=== PATIENT | female | born 1970 | race Caucasian/White ===

== ENCOUNTER 2016-06-23 11:35 | Observation (INO) ==
--- NOTE | 2016-06-23 11:50 | Emergency Department Note ---
Disposition Clinical Impression: Confusion, Abnormal chest x-ray, Marijuana abuse, Acute anxiety, Altered mental state, COPD (chronic obstructive pulmonary disease) Disposition: Admitted As Inpatient General Adult HPI - General Chief complaint: ED Psychiatric Symptoms Stated complaint: OD/ Aggitated Time Seen by Provider: 06/23/16 11:49 Source: EMS Limitations: no limitations - History of Present Illness HPI Narrative: 45-year-old female reports to the emergency department, there is concern for drug overdose. Per the patient's mother she has been confused and "takes drugs ". The patient reportedly has been somewhat anxious about a court date coming next Friday. There is no history of significant trauma, the patient may have fell out of bed. There is no history of direct blunt head injury. There is no history of laceration or bleeding. The patient is unable to give a clear history. The patient's mother reports the patient had taken some drugs of an unknown sort last night, we are not sure if it was an intentional overdose or suicide attempt. The patient's mother reports the patient has not had suicide attempts in the past. Per reports she has never been admitted to a psychiatric facility for mental problems in the past. She reportedly has a history of anxiety and depression per the chart. There is no history of syncope or seizure. No apnea or on arousability. Confusion and apparent anxiety are reported. The patient is not known to be diabetic. Nurses report patient has soiled herself i.e. urinated and defecated in her pants. There is no history of neck or spinal trauma. There are no reports of diabetes. Onset (ago): hour(s) Pain Scale: 0 - Related Data Home Medications Medication Instructions Recorded Confirmed Aclidinium [place] [Tudorza 1 puff IH BID 04/13/15 08/23/15 Pressair] Albuterol Sulfate [Albuterol 2 puff IH Q4HR PRN 04/13/15 08/23/15 Inhaler] Cetirizine HCl [Zyrtec] 10 mg PO DAILY 04/13/15 08/23/15 Escitalopram [Lexapro] 20 mg PO DAILY 04/13/15 08/23/15 Furosemide [Lasix] 20 mg PO DAILY 04/13/15 08/23/15 Levothyroxine [Synthroid] 88 mcg PO DAILY 04/13/15 08/23/15 Multivitamin [Multi-Day Vitamins] 1 tab PO DAILY 04/13/15 08/23/15 Ranitidine HCl [Zantac] 150 mg PO BID 04/13/15 08/23/15 Budesonide/Formoterol 160/4.5 2 puff IH BIDR 08/23/15 08/23/15 [Symbicort 160/4.5] Previous Rx's Medication Instructions Recorded Nicotine Patch [Nicoderm] 14 mg TD DAILY patch.td24 08/24/15 Thiamine (B-1) [Vitamin B-1] 100 mg PO DAILY tablet 08/24/15 Vitamin B Complex/Vit C/Vit E 1 each PO DAILY tablet 08/24/15 [Stresstab] Sulfamethoxazole/Trimeth DS 1 each PO BID #7 tablet 08/26/15 [Bactrim DS] Clindamycin [Cleocin] 150 mg PO Q6HR #8 capsule 10/06/15 OxyCODONE Immed Rel [Roxicodone 5 5 - 10 mg PO Q6HR PRN #30 tablet 10/06/15 MG] Allergies Allergy/AdvReac Type Severity Reaction Status Date / Time acetaminophen [From Vicodin] Allergy Vomiting Verified 03/17/16 01:24 Amoxicillin Allergy Rash Verified 03/17/16 01:24 hydrocodone [From Vicodin] Allergy Vomiting Verified 03/17/16 01:24 Limitations: ROS unobtainable due to patients medical condition Past Medical History - Past Medical History Medical history: Reports: arthritis, COPD, GERD, osteoporosis, thyroid disease, syncope, other Surgical history: Reports: cholecystectomy, orthopedic, other, other Psychiatric history: Reports: anxiety, depression, other [employer] history: Reports: bilateral tubal ligation - Social History Smoking Status: Former smoker Smokeless Tobacco Status: No Alcohol use: Reports: rarely Drug use: Reports: IVDU Physical Exam - General Limitations: altered mental status General appearance: alert, anxious, other (Disheveled appearing, moving about the bed, crying occasionally, will not answer questions.) - Head Head exam: atraumatic, normocephalic, normal inspection - Eye Eye exam: Present: normal appearance, PERRL, EOMI. Absent: scleral icterus, conjunctival injection, miosis, mydriasis - ENT ENT exam: normal exam, normal oropharynx, mucous membranes moist, TM's normal bilaterally, normal external ear exam - Neck Neck exam: Present: normal inspection, full ROM, trachea midline. Absent: tenderness - Chest Chest inspection: Present: normal inspection, symmetric chest wall rise. Absent : tenderness - Respiratory Respiratory exam: Present: normal lung sounds bilaterally. Absent: respiratory distress - Cardiovascular Cardiovascular exam: Present: regular rate, normal rhythm, normal heart sounds - Abdominal Exam Abdominal exam: Present: soft, Non-Tender. Absent: tenderness, distention, guarding, rebound, rigidity, trauma, pulsatile mass - Extremities Exam Extremities exam: Present: normal inspection, full ROM, normal capillary refill , other. Absent: tenderness, pedal edema, joint swelling, calf tenderness - Expanded Lower Extremity Exam Neurovascular/Tendon exam: Absent: pulse deficit, motor deficit, sensory deficit , tendon deficit - Back Exam Back exam: Present: normal inspection, full ROM. Absent: tenderness, CVA tenderness (L), vertebral tenderness - Neurological Exam Neurological exam: Present: alert, CN II-XII intact. Absent: motor sensory deficit - Psychiatric Psychiatric exam: Present: agitated, anxious - Skin Skin exam: Present: warm, dry, intact, normal color. Absent: rash, cyanosis, diaphoresis, erythema, pallor, mottled Course Vital Signs Temperature 99.8 F H 06/23/16 11:36 Pulse Rate 70 06/23/16 11:36 Respiratory Rate 18 06/23/16 11:36 Blood Pressure 135/107 06/23/16 11:36 O2 Sat by Pulse Oximetry 96 06/23/16 11:36 Temperature 99.8 F H 06/23/16 11:36 Pulse Rate 60 06/23/16 14:30 Respiratory Rate 16 06/23/16 14:30 Blood Pressure 126/107 06/23/16 14:30 O2 Sat by Pulse Oximetry 98 06/23/16 14:30 Oxygen Delivery Oxygen Delivery Room Air Medical Decision Making - MDM Narrative Medical decision making narrative: The patient was highly avoidant and crying and uncooperative initially. She seemed to be confused. During the ED course, she became much more arousable and began talking to staff, but then stopped interacting. There is no evidence of trauma or acute physical abnormality, her testing is essentially negative apart from marijuana abuse and what could be a very small infiltrate in the lung. Levaquin was given by mouth. We consulted the psychiatric service, they came to evaluate the patient and the patient would not talk with them, they felt in the setting of drug overdose that a medical admission would be the primary pathway with secondary direct psychiatrist evaluation on the floor. The the patient appears to be stable and may have ingested a substance that is not detectable by usual ED toxicology studies. There is no direct history of any type of particular ingestion. The grandmother reports that the patient "takes drugs all the time" she does not specify any particular type. The patient appears to be stable at this time, I consulted with the hospitalist [employer] air carrier operations inspector who has accepted the patient to their care. Pending admission for further medical evaluation and psychiatric consultation. - Lab Data Lab results reviewed: Yes I reviewed the patient's lab results. Result diagrams: 06/23/16 12:25 06/23/16 12:25 Lab Results 06/23/16 06/23/16 06/23/16 Range/Units 12:25 12:25 12:25 WBC 11.0 (4.3-11.1) K/mcL RBC 4.11 (3.82-4.97) M/mcL Hgb 12.4 (11.5-15.4) g/dL Hct 37.6 (35.3-44.9) % MCV 91.5 (83.0-100.0) fL MCH 30.2 (28.0-33.3) pg MCHC 33.0 (31.6-35.5) g/dL RDW 15.8 H (11.5-14.5) % Plt Count 364 (140-400) K/mcL MPV 9.3 L (9.4-12.4) fL Immature Gran % 0.4 (0-4) % Seg Neutrophils % 61.6 % Lymphocytes % 24.0 % Monocytes % 11.9 % Eosinophils % 1.4 % Basophils % 0.7 % Neutrophils # 6.8 (1.6-8.9) K/mcL Lymphocytes # 2.6 (0.6-4.6) K/mcL Monocytes # 1.3 (0.0-1.3) K/mcL Eosinophils # 0.2 (0.0-0.6) K/mcL Basophils # 0.1 (0.0-0.2) K/mcL Sodium 145 (136-145) mEq/L Potassium 3.6 (3.5-4.5) mEq/L Chloride 112 H (98-109) mEq/L Carbon Dioxide 21 (19-29) mEq/L BUN 9 (7-20) mg/dL Creatinine 0.69 (0.57-1.11) mg/dL Est GFR ( Amer) > 60 (> 60) Est GFR (Non-Af Amer) > 60 (> 60) BUN/Creatinine Ratio 13 (6-26) Glucose 98 (70-99) mg/dL Calculated Osmolality 299 (280-300) Lactic Acid (0.5-2.2) mmol/L Calcium 8.4 L (8.6-10.8) mg/dL Total Bilirubin (0.2-1.2) mg/dL Direct Bilirubin (0.0-0.5) mg/dL Indirect Bilirubin (0.0-1.2) mg/dL AST (5-34) Units/L ALT (0-55) Units/L Alkaline Phosphatase (38-126) Units/L Ammonia (18-72) mcmol/L Troponin I 0.01 (0-0.03) ng/mL C-Reactive Protein (Less than 5) mg/L Serum Total Protein (6.0-8.3) g/dL Albumin (3.5-5.0) g/dL Globulin (2.4-3.5) g/dL Albumin/Globulin Ratio (1.1-2.2) TSH (0.350-4.840) mcIU/mL Urine Color (Yellow) Urine Clarity (Clear) Urine pH (5.0-8.0) pH Units Ur Specific [place] (1.010-1.025) Urine Protein (Neg-Trace) mg/dL Urine Glucose (UA) (Normal) mg/dL Urine Ketones (Negative) mg/dL Urine Blood (Negative) Urine Nitrite (Negative) Urine Bilirubin (Negative) Urine Urobilinogen (Normal) mg/dL Ur Leukocyte Esterase (Negative) Salicylates < 5.0 L (15-30) mg/dL Urine Opiates Screen (Nysgfv=375) ng/mL Acetaminophen < 1.0 L (10-30) mcg/mL Ur Barbiturates Screen (Aiglfw=685) ng/mL Ur Phencyclidine Scrn (Cutoff=25) ng/mL Ur Amphetamines Screen (Owqqou=9234) ng/mL U Benzodiazepines Scrn (Yemjfq=123) ng/mL Urine Cocaine Screen (Cutoff= 300) ng/mL U Marijuana (THC) Screen (Cutoff = 50) ng/mL Ethyl Alcohol < 10 (0-10) mg/dL 06/23/16 06/23/16 06/23/16 Range/Units 12:25 12:25 12:25 WBC (4.3-11.1) K/mcL RBC (3.82-4.97) M/mcL Hgb (11.5-15.4) g/dL Hct (35.3-44.9) % MCV (83.0-100.0) fL MCH (28.0-33.3) pg MCHC (31.6-35.5) g/dL RDW (11.5-14.5) % Plt Count (140-400) K/mcL MPV (9.4-12.4) fL Immature Gran % (0-4) % Seg Neutrophils % % Lymphocytes % % Monocytes % % Eosinophils % % Basophils % % Neutrophils # (1.6-8.9) K/mcL Lymphocytes # (0.6-4.6) K/mcL Monocytes # (0.0-1.3) K/mcL Eosinophils # (0.0-0.6) K/mcL Basophils # (0.0-0.2) K/mcL Sodium (136-145) mEq/L Potassium (3.5-4.5) mEq/L Chloride (98-109) mEq/L Carbon Dioxide (19-29) mEq/L BUN (7-20) mg/dL Creatinine (0.57-1.11) mg/dL Est GFR ( Amer) (> 60) Est GFR (Non-Af Amer) (> 60) BUN/Creatinine Ratio (6-26) Glucose (70-99) mg/dL Calculated Osmolality (280-300) Lactic Acid 0.9 (0.5-2.2) mmol/L Calcium (8.6-10.8) mg/dL Total Bilirubin 0.5 (0.2-1.2) mg/dL Direct Bilirubin 0.3 (0.0-0.5) mg/dL Indirect Bilirubin 0.2 (0.0-1.2) mg/dL AST 17 (5-34) Units/L ALT 13 (0-55) Units/L Alkaline Phosphatase 138 H (38-126) Units/L Ammonia 21 (18-72) mcmol/L Troponin I (0-0.03) ng/mL C-Reactive Protein 5 H (Less than 5) mg/L Serum Total Protein 7.0 (6.0-8.3) g/dL Albumin 3.1 L (3.5-5.0) g/dL Globulin 3.9 H (2.4-3.5) g/dL Albumin/Globulin Ratio 0.8 L (1.1-2.2) TSH 1.664 (0.350-4.840) mcIU/mL Urine Color (Yellow) Urine Clarity (Clear) Urine pH (5.0-8.0) pH Units Ur Specific [place] (1.010-1.025) Urine Protein (Neg-Trace) mg/dL Urine Glucose (UA) (Normal) mg/dL Urine Ketones (Negative) mg/dL Urine Blood (Negative) Urine Nitrite (Negative) Urine Bilirubin (Negative) Urine Urobilinogen (Normal) mg/dL Ur Leukocyte Esterase (Negative) Salicylates (15-30) mg/dL Urine Opiates Screen (Dzutea=126) ng/mL Acetaminophen (10-30) mcg/mL Ur Barbiturates Screen (Cbtnwl=244) ng/mL Ur Phencyclidine Scrn (Cutoff=25) ng/mL Ur Amphetamines Screen (Hbzpon=1915) ng/mL U Benzodiazepines Scrn (Etingy=273) ng/mL Urine Cocaine Screen (Cutoff= 300) ng/mL U Marijuana (THC) Screen (Cutoff = 50) ng/mL Ethyl Alcohol (0-10) mg/dL 06/23/16 06/23/16 Range/Units 12:36 12:36 WBC (4.3-11.1) K/mcL RBC (3.82-4.97) M/mcL Hgb (11.5-15.4) g/dL Hct (35.3-44.9) % MCV (83.0-100.0) fL MCH (28.0-33.3) pg MCHC (31.6-35.5) g/dL RDW (11.5-14.5) % Plt Count (140-400) K/mcL MPV (9.4-12.4) fL Immature Gran % (0-4) % Seg Neutrophils % % Lymphocytes % % Monocytes % % Eosinophils % % Basophils % % Neutrophils # (1.6-8.9) K/mcL Lymphocytes # (0.6-4.6) K/mcL Monocytes # (0.0-1.3) K/mcL Eosinophils # (0.0-0.6) K/mcL Basophils # (0.0-0.2) K/mcL Sodium (136-145) mEq/L Potassium (3.5-4.5) mEq/L Chloride (98-109) mEq/L Carbon Dioxide (19-29) mEq/L BUN (7-20) mg/dL Creatinine (0.57-1.11) mg/dL Est GFR ( Amer) (> 60) Est GFR (Non-Af Amer) (> 60) BUN/Creatinine Ratio (6-26) Glucose (70-99) mg/dL Calculated Osmolality (280-300) Lactic Acid (0.5-2.2) mmol/L Calcium (8.6-10.8) mg/dL Total Bilirubin (0.2-1.2) mg/dL Direct Bilirubin (0.0-0.5) mg/dL Indirect Bilirubin (0.0-1.2) mg/dL AST (5-34) Units/L ALT (0-55) Units/L Alkaline Phosphatase (38-126) Units/L Ammonia (18-72) mcmol/L Troponin I (0-0.03) ng/mL C-Reactive Protein (Less than 5) mg/L Serum Total Protein (6.0-8.3) g/dL Albumin (3.5-5.0) g/dL Globulin (2.4-3.5) g/dL Albumin/Globulin Ratio (1.1-2.2) TSH (0.350-4.840) mcIU/mL Urine Color Yellow (Yellow) Urine Clarity Clear (Clear) Urine pH 5.5 (5.0-8.0) pH Units Ur Specific [place] 1.025 (1.010-1.025) Urine Protein Negative (Neg-Trace) mg/dL Urine Glucose (UA) Normal (Normal) mg/dL Urine Ketones Trace H (Negative) mg/dL Urine Blood Negative (Negative) Urine Nitrite Negative (Negative) Urine Bilirubin Negative (Negative) Urine Urobilinogen Normal (Normal) mg/dL Ur Leukocyte Esterase Negative (Negative) Salicylates (15-30) mg/dL Urine Opiates Screen Negative (Hqiyhg=651) ng/mL Acetaminophen (10-30) mcg/mL Ur Barbiturates Screen Negative (Dgaqdv=597) ng/mL Ur Phencyclidine Scrn Negative (Cutoff=25) ng/mL Ur Amphetamines Screen Negative (Eluqrz=1824) ng/mL U Benzodiazepines Scrn Negative (Rrrefq=661) ng/mL Urine Cocaine Screen Negative (Cutoff= 300) ng/mL U Marijuana (THC) Screen Positive H (Cutoff = 50) ng/mL Ethyl Alcohol (0-10) mg/dL - Radiology Data Radiology results reviewed: Yes I reviewed the patient's radiology results.
[2016-06-23 12:44] LABS: Basophils # 0.1 K/mcL (0.0-0.2); Basophils % 0.7 %; Eosinophils # 0.2 K/mcL (0.0-0.6); Eosinophils % 1.4 %; Hematocrit 37.6 % (35.3-44.9); Hemoglobin 12.4 g/dL (11.5-15.4); Immature Granulocytes % 0.4 % (0-4); Lymphocytes # 2.6 K/mcL (0.6-4.6); Mean Corpuscular Hemoglobin 30.2 pg (28.0-33.3); Mean Corpuscular Volume 91.5 fL (83.0-100.0); Mean Platelet Volume 9.3 fL (9.4-12.4); Monocytes # 1.3 K/mcL (0.0-1.3); Monocytes % 11.9 %; Neutrophils # 6.8 K/mcL (1.6-8.9); Platelet Count 364 K/mcL (140-400); Red Blood Count 4.11 M/mcL (3.82-4.97); Red Cell Distribution Width 15.8 % (11.5-14.5); Segmented Neutrophils % 61.6 %
[2016-06-23 12:54] LABS: Bilirubin,Urine Negative (Negative); Blood,Urine Negative (Negative); Clarity,Urine Clear (Clear); Color,Urine Yellow (Yellow); Glucose,Urine (UA) Normal (Normal); Ketones,Urine Trace mg/dL (Negative); Leukocyte Esterase,Urine Negative (Negative); Nitrite,Urine Negative (Negative); PH,Urine 5.5 pH Units (5.0-8.0); Protein,Urine Negative (Neg-Trace); Specific Gravity,Urine 1.025 (1.010-1.025); Urobilinogen,Urine Normal (Normal)
[2016-06-23 13:00] LABS: Amphetamine Screen,Urine Negative ng/mL (Cutoff=1000); Barbiturate Screen,Urine Negative ng/mL (Cutoff=200); Benzodiazepines Screen,Urine Negative ng/mL (Cutoff=200); Cannabinoid Screen,Urine Positive ng/mL (Cutoff = 50); Cocaine Screen,Urine Negative ng/mL (Cutoff= 300); Opiate Screen,Urine Negative ng/mL (Cutoff=300); Phencyclidine Screen,Urine Negative ng/mL (Cutoff=25)
[2016-06-23 13:01] LABS: BUN/Creatinine Ratio 13 (6-26); Blood Urea Nitrogen 9 mg/dL (7-20); Calcium 8.4 mg/dL (8.6-10.8); Carbon Dioxide 21 mEq/L (19-29); Chloride 112 mEq/L (98-109); Glucose 98 mg/dL (70-99); Osmolality,Calculated 299 (280-300); Potassium 3.6 mEq/L (3.5-4.5); Sodium 145 mEq/L (136-145); eGFR For African Americans > 60 (> 60); eGFR For Non-African Americans > 60 (> 60)
[2016-06-23 13:02] LABS: Acetaminophen < 1.0 mcg/mL (10-30); Albumin 3.1 g/dL (3.5-5.0); Albumin/Globulin Ratio 0.8 (1.1-2.2); Bilirubin,Direct 0.3 mg/dL (0.0-0.5); Bilirubin,Indirect 0.2 mg/dL (0.0-1.2); Bilirubin,Total 0.5 mg/dL (0.2-1.2); Ethanol < 10 mg/dL (0-10); Globulin 3.9 g/dL (2.4-3.5); Salicylate < 5.0 mg/dL (15-30)
[2016-06-23 13:22] LABS: Thyroid Stimulating Hormone 1.664 mcIU/mL (0.350-4.840)
[2016-06-23] MEDS ORDERED: levoFLOXacin 500 MG TABLET PO ONE (13:56)
[2016-06-23] MEDS ORDERED: Naloxone 0.4 MG/ML INJ IVP PRN (18:42)
[2016-06-23] MEDS ORDERED: Ondansetron 4 MG/2 ML VIAL IVP PRN (18:42)
[2016-06-23] MEDS ORDERED: Diphenoxylate/Atropine 1 TAB TABLET PO PRN (18:46)
[2016-06-23] MEDS ORDERED: Albuterol 2.5 MG/3 ML NEBULIZER IH PRN (18:56)
--- NOTE | 2016-06-23 19:27 | Internal Med History&Physical ---
Date of Encounter: 06/23/16 Time of Encounter: 18:00 Assessment and Plan (1) Altered mental state Current visit: Yes Status: Acute 1 patient had been confused and combative prior to arrival in the ER and withdrawn and evasive upon arrival. Concerns of drug overdose which tox screening was negative except for marijuana. Patient did have fall does have a contusion to right eye CT of head was negative. At present time patient appears to be teary-eyed answers questions with yes or no or answers in short sentences. She is afebrile with no leukocytosis. No signs of infectious process. She does not appear to be hypoxic Does state has history of anxiety and depression. We will consult psychiatry 2 we will continue to monitor neuro status overnight 3 patient's high risk for falls we will place on fall precautions (2) COPD (chronic obstructive pulmonary disease) Current visit: Yes Status: Acute 1 present time stable no exacerbation we will continue with bronchodilators oxygen as needed (3) Contusion of head Current visit: No Status: Acute 1 patient does have ecchymosis to right eye. CT of head was negative will continue with neuro checks Internal Medicine - H&P: HPI Chief complaint: AMS Admitted From: Home Plans for Post Hospital Care: Home History of present illness: Ms. Pham is a 45 year old female past medical history of COPD GERD thyroid disease drug abuse. Information obtained from medical records patient is somewhat cooperative during assessment however mainly answers yes or no. According to ER records the patient had taken some drugs of unknown sort last night unsure if this was an intentional overdose or suicide attempt. She apparently fell out of bed this morning and was confused and agitated her mother did call EMS . Upon arrival of the EMS patient was agitated and anxious she was transported to ER for further evaluation. Upon arrival in the ER patient was not cooperative highly, avoiding and crying. She would become unarousable and stop interacting with staff, then she would awake become interactive. At one point she was incontinent of bowel and bladder. CT of her head was negative for any intracranial abnormality. EKG with SB no ST T wave abnormalities . CXR with small infiltrate that could represent scarring versus pneumonia Lab work was unremarkable no leukocytosis. Her toxic screen was positive marijuana there is no past history of intentional overdose or suicide attempts. Psychiatry was consulted they came to evaluated the patient and the patient would not speak with them. According to ER records, psychiatry felt that in the setting of drug overdose that a medical admission would be the primary pathway with secondary direct psychiatrist evaluation on the floor. There is some concern the patient may have consumed a substance that is not detectable by usual ED toxicology, and she should be admitted for medical clearance prior to being admitted to the psych floor. Upon assessment patient is sleeping but is arousable to verbal command. She does follow simple commands. However she answers questions as yes or no or very brief sentences. She denies any drug consumption or use. She does admit that she fell out of bed however denies any loss of consciousness seizure activity or trauma. It is noted that the patient does have ecchymosis to right eye. When questioned about ecchymosis she states "it must have happened when I fell out of bed." She denies any suicidal , homicidal ideations, visual or auditory hallucinations. She does admit to anxiety and depression. During assessment patient was tearful and states that she has been feeling sad. At present time she is hemodynamically stable and appears to be in no distress. Review this case with Dr Jiang who agrees with plan Past Med Surg Social Fam HX - Past Medical History Medical history: arthritis, COPD, GERD, osteoporosis, thyroid disease, syncope, other Psychiatric history: anxiety, depression, other - Past Surgical History Surgical History: cholecystectomy, orthopedic, other, other - Social History Smoking Status: Former smoker Smokeless Tobacco Status: No Alcohol use: rarely Drug use: marijuana - Family History Mother Family Member Ethnicity: Non- Living Status: Still Living Hx Family Cardiac Disorders: Yes (Tachycardia) Hx Family Respiratory Disorders: Yes (COPD) Hx Family Cancer: No Hx Family GI Disorders: No Hx Family Endocrine Disorder: No Hx Family Neuromuscular Disorders: No Hx Family Neurologic Disorders: No Hx Family HEENT Disorders: No Hx Family Autoimmune Disorders: No Internal Medicine - H&P: Meds Albuterol Sulfate [Albuterol Inhaler] 2 puff IH Q4HR PRN 04/13/15 [History] Cetirizine HCl [Zyrtec] 10 mg PO DAILY 04/13/15 [History] Levothyroxine [Synthroid] 88 mcg PO DAILY 04/13/15 [History] Ranitidine HCl [Zantac] 150 mg PO BID 04/13/15 [History] Budesonide/Formoterol 160/4.5 [Symbicort 160/4.5] 2 puff IH BIDR 08/23/15 [ History] Baclofen [Lioresal] 10 mg PO TID 06/23/16 [History] Cholecalciferol (Vitamin D3) [Vitamin D3] 10,000 unit PO QWEEK 06/23/16 [History ] ClonazePAM [Klonopin] 2 mg PO BID PRN 06/23/16 [History] Diphenoxylate/Atropine [Lomotil 2.5 mg/0.025 mg] 1 tab PO Q6H PRN 06/23/16 [ History] Eszopiclone [Lunesta] 1 mg PO HS 06/23/16 [History] Fluticasone/Vilanterol [Breo Ellipta 100-25 Mcg INH] 1 puff IH DAILY 06/23/16 [ History] Allergies acetaminophen [From Vicodin] Allergy (Verified 03/17/16 01:24) Vomiting Amoxicillin Allergy (Verified 03/17/16 01:24) Rash hydrocodone [From Vicodin] Allergy (Verified 03/17/16 01:24) Vomiting ROS unobtainable: other All Systems PM: A 10-system review of systems was performed and is negative for pertinent findings except as documented above in the HPI. Review of systems: Patient was not cooperative during assessment - Constitutional Vitals: Temp Pulse Resp BP Pulse Ox 98.6 F 70 18 131/72 95 06/23/16 18:33 06/23/16 18:33 06/23/16 18:33 06/23/16 18:33 06/23/16 18:33 General appearance: Present: disheveled, A&O X 3 - Head Head exam: Present: normocephalic Additional comments: Ecchymosis to right eye - Eye Eye exam: Present: PERRL, conjuntiva pink, sclera anicteric Pupils: Present: PERRL - Neck Neck exam general surgery: Present: supple, trachea midline. Absent: lymphadenopathy - Respiratory Respiratory exam: Present: CTAB. Absent: accessory muscle use, rales, rhonchi, wheezes - Cardiovascular Cardiovascular exam: Present: RRR, +S1, +S2. Absent: diastolic murmur, gallop, rubs, systolic murmur - GI/Abdominal GI/Abdominal exam: Present: normal bowel sounds, soft, no peritoneal signs. Absent: distended, tenderness - Extremities Exam Extremities exam: Present: warm, radial pulses palpable and symetrical. Absent : calf tenderness, cyanotic, pedal edema - Neurological Exam Neurological exam: Present: CN II-XII intact, oriented X3, no focal deficits. Absent: pronater drift, facial droop, speech deficit - Skin Skin exam: Present: dry, intact Internal Med - H&P Results - Labs CBC & Chem 7: 06/23/16 12:25 06/23/16 12:25 - EKG Data EKG shows normal: sinus rhythm, ST-T waves Rate: normal, bradycardia - EKG Data EKG comments: 06/23/16 20:45 A repeat EKG with Dr Jiang - Diagnostic Studies Chest x-ray Additional comments: Per radiology read small infiltrate within the midportion of the left lung peripherally this could represent scarring versus small pneumonia CT scan - head Additional comments: Per radiology read no intracranial abnormality noted - VTE Reasons for not Prescribing Prophylaxis: Treatment not Indicated - Low risk for VTE
[2016-06-23] MEDS: Budesonide/Formoterol 160/4.5 MDI IH SCH (20:29)
[2016-06-23] MEDS: Famotidine 20 MG TABLET PO SCH (20:56)
[2016-06-23] MEDS ORDERED: Ibuprofen 400 MG TABLET PO PRN (22:13)
[2016-06-24 04:35] LABS: Basophils # 0.1 K/mcL (0.0-0.2); Basophils % 1.2 %; Eosinophils # 0.2 K/mcL (0.0-0.6); Hematocrit 36.5 % (35.3-44.9); Hemoglobin 11.7 g/dL (11.5-15.4); Immature Granulocytes % 0.2 % (0-4); Lymphocytes # 3.3 K/mcL (0.6-4.6); Lymphocytes % 36.3 %; Mean Corpuscular HGB Conc 32.1 g/dL (31.6-35.5); Mean Corpuscular Hemoglobin 30.2 pg (28.0-33.3); Mean Corpuscular Volume 94.1 fL (83.0-100.0); Mean Platelet Volume 9.7 fL (9.4-12.4); Monocytes # 0.8 K/mcL (0.0-1.3); Monocytes % 8.3 %; Neutrophils # 4.7 K/mcL (1.6-8.9); Platelet Count 338 K/mcL (140-400); Red Blood Count 3.88 M/mcL (3.82-4.97)
[2016-06-24 04:51] LABS: BUN/Creatinine Ratio 11 (6-26); Blood Urea Nitrogen 9 mg/dL (7-20); Calcium 8.1 mg/dL (8.6-10.8); Carbon Dioxide 18 mEq/L (19-29); Chloride 109 mEq/L (98-109); Glucose 175 mg/dL (70-99); Osmolality,Calculated 295 (280-300); Potassium 3.6 mEq/L (3.5-4.5); Sodium 141 mEq/L (136-145); eGFR For African Americans > 60 (> 60); eGFR For Non-African Americans > 60 (> 60)
[2016-06-24] MEDS: Budesonide/Formoterol 160/4.5 MDI IH SCH (07:38)
[2016-06-24] MEDS: Famotidine 20 MG TABLET PO SCH (07:59)
[2016-06-24] MEDS ORDERED: Loratadine 10 MG TABLET PO SCH (09:00)
--- NOTE | 2016-06-24 10:06 | Internal Med Progress Note ---
Date of Encounter: 06/24/16 Time of Encounter: 09:15 - Assessment and plan (1) Toxic metabolic encephalopathy Current Visit: No Status: Resolved Assessment and plan: Patient is currently alert and oriented 3. She denies suicidal or homicidal ideations at this time. (2) Drug overdose Current Visit: No Status: Acute Assessment and plan: Unclear causation at this time. Patient's tox screen was positive for marijuana however she denies even knowing where to get it and states that she is never had marijuana in her life. She denies any other type of illicit drugs. She states that she fell out of bed because her daughter usually sleeps with her but she was not sleeping with her last night. She states she remembers hitting her head and then was "fine." Patient stating that she had to come to the hospital because the rating officer that came out to her house was angry with her. In review of her chart and EMS report, patient was noted per EMS to be wandering around her house confused and combative. At that time, patient refused transport to the rating officer told her that she was to come with him or go with EMS at which time she consented to be brought to the hospital. Patient denies all of the above. Urinalysis negative for signs of infection. Chest x-ray abnormal however chest CT revealing no new acute processes. Head CT negative. Patient is clearly not being truthful about what happened and what she took but she does continue to decline suicidal or homicidal ideations. According to ER reports, she was incontinent of both urine and stool while in the emergency department. Awaiting psychiatry consultation. Plain films of right shoulder ordered, patient is medically stable to be transferred to psychiatric unit if indicated. ITS Impressions Chest X-Ray 06/23/16 12:08 IMPRESSION: Small infiltrate within the midportion of the left lung peripherally. This finding could represent scarring versus small pneumonia. Old right rib fractures. D/ / 06/23/2016 13:56:39 Juan Diego Peña MD / daniela Interpreting Provider: Juan Diego Peña MD Head CT 06/23/16 12:10 IMPRESSION: No acute intracranial abnormality. D/ / Faizan Ovalle MD / Faizan Ovalle MD Interpreting Provider: Faizan Ovalle MD Chest CT 06/23/16 19:27 IMPRESSION: 1. No acute process in the chest. 2. Unchanged scarring, bronchiectasis, and volume loss of the left upper lobe. 3. Or 4 mm subpleural nodule in the right upper lobe unchanged from at least 05/21/2013. Given the long-term stability this is considered benign and requires no follow-up. 4. Coronary artery atherosclerotic vascular calcifications. 5. Mild mediastinal and right hilar lymphadenopathy unchanged from 04/13/2015. D/ / Jose Antonio Marx MD / Jose Antonio Marx MD Interpreting Provider: Jose Antonio Marx MD (3) Contusion of head Current Visit: No Status: Acute Assessment and plan: Patient with ecchymosis around her right eye and to her right eyebrow. Edema is minimal. EOMI. PERRLA. Head CT unremarkable. ITS Impressions Head CT 06/23/16 12:10 IMPRESSION: No acute intracranial abnormality. D/ / Faizan Ovalle MD / Faizan Ovalle MD Interpreting Provider: Faizan Ovalle MD (4) Right shoulder pain Current Visit: Yes Status: Acute Assessment and plan: acute on chronic. Patient stating she has had surgery on both of her shoulders. She states her right shoulder started to hurt worse after her fall- will obtain plain films. She states her prior right-sided shoulder surgery was to "remove calcium from the bone." Right arm neurovascularly intact. (5) Marijuana abuse Current Visit: Yes Status: Acute Assessment and plan: Tox screen positive for marijuana. Patient stating she has never been around marijuana, has never used it, and would not even know how to get it. (6) COPD (chronic obstructive pulmonary disease) Current Visit: Yes Status: Chronic Assessment and plan: No acute exacerbation. Patient denies shortness of breath above her norm. Qualifiers: COPD type: unspecified COPD Qualified Code(s): J44.9 - Chronic obstructive pulmonary disease, unspecified (7) Anxiety Current Visit: No Status: Chronic (8) Hypothyroidism Current Visit: No Status: Chronic Assessment and plan: TSH normal (9) Moderate recurrent major depression Current Visit: No Status: Chronic Assessment and plan: Denies suicidal ideation, psychiatry on board, appreciate recommendations (10) Nicotine dependence with nicotine-induced disorder Current Visit: No Status: Chronic Assessment and plan: Patient stating she rolls her own cigarettes, declines counseling at this time - Subjective Interval history: Patient seen and examined. On examination, patient sitting upright in her bed. Patient alert and oriented 3 and currently complains of right shoulder pain. Patient stating she is eating well though states she had difficulty chewing food given that she had all her teeth pulled several months ago. Patient stating she has never even been around marijuana and has no idea how it got in her system. She denies suicidal or homicidal ideations at this time. - Constitutional Vitals: Temp Pulse Resp BP Pulse Ox 98.4 F 58 14 119/70 97 06/24/16 07:07 06/24/16 07:07 06/24/16 07:38 06/24/16 07:07 06/24/16 07:38 General appearance: Present: disheveled, A&O X 3, pleasant, no acute distress, answers questions appropriately - Head Head exam: Present: atraumatic, normocephalic - Eye Eye exam: Present: PERRL, conjuntiva pink, sclera anicteric Pupils: Present: PERRL - Neck Neck exam general surgery: Present: supple, trachea midline. Absent: lymphadenopathy - Respiratory Respiratory exam: Present: decreased breath sounds. Absent: accessory muscle use, rales, respiratory distress, rhonchi, wheezes - Cardiovascular Cardiovascular exam: Present: RRR, +S1, +S2. Absent: diastolic murmur, gallop, rubs, systolic murmur - GI/Abdominal GI/Abdominal exam: Present: normal bowel sounds, soft, no peritoneal signs. Absent: distended, tenderness - Extremities Exam Extremities exam: Present: warm, radial pulses palpable and symetrical. Absent : calf tenderness, cyanotic, pedal edema - Neurological Exam Neurological exam: Present: alert, CN II-XII intact, normal gait, oriented X3, no focal deficits, strengths equal and symetr throughout. Absent: pronater drift, facial droop, speech deficit - Skin Skin exam: Present: dry, intact, normal color, warm - Expanded Skin Exam Distribution of rash: Present: face Description of rash: Present: erythematous (ecchymosis around right eye; EOMI; PERRLA), tenderness Internal Medicine: Result - Labs CBC & Chem 7: 06/24/16 03:41 06/24/16 03:41 Labs: Short CBC 06/24/16 Range/Units 03:41 WBC 9.0 (4.3-11.1) K/mcL Hgb 11.7 (11.5-15.4) g/dL Hct 36.5 (35.3-44.9) % Plt Count 338 (140-400) K/mcL Neutrophils # 4.7 (1.6-8.9) K/mcL BMP 06/24/16 03:41 Sodium 141 Potassium 3.6 Chloride 109 Carbon Dioxide 18 L BUN 9 Creatinine 0.84 Glucose 175 H Calcium 8.1 L - Impressions Impressions Chest CT 06/23/16 19:27 IMPRESSION: 1. No acute process in the chest. 2. Unchanged scarring, bronchiectasis, and volume loss of the left upper lobe. 3. Or 4 mm subpleural nodule in the right upper lobe unchanged from at least 05/21/2013. Given the long-term stability this is considered benign and requires no follow-up. 4. Coronary artery atherosclerotic vascular calcifications. 5. Mild mediastinal and right hilar lymphadenopathy unchanged from 04/13/2015. D/ / Jose Antonio Marx MD / Jose Antonio Marx MD Interpreting Provider: Jose Antonio Marx MD - VTE Reasons for not Prescribing Prophylaxis: Treatment not Indicated - Low risk for VTE Consult Discharge Plan - Plan Referrals: NO,PCP [Primary Care Provider] - Guillermo Cm MD [Partnered Physician] - 06/27/16 2:15 pm
[2016-06-24 11:01] VITALS: BP 110/70
--- NOTE | 2016-06-24 14:36 | Event Note ---
Date of Encounter: 06/24/16 Time of Encounter: 14:34 Plain films of shoulder unremarkable. Patient cleared medically for transfer down to psychiatric unit per their recommendations. Awaiting psychiatry recommendations. Of note, patient became very agitated when she found out she may potentially be transferred down to inpatient psychiatry unit. She is not pink slipped at this moment, will pink slip her if psychiatry feels it is necessary. ITS Impressions Shoulder X-Ray 06/24/16 10:16 IMPRESSION: No acute fracture or dislocation. D/ / 06/24/2016 13:12:41 Carlos Reis MD / abundio Interpreting Provider: Carlos Reis MD
--- NOTE | 2016-06-24 15:03 | Discharge Summary ---
Date of Encounter: 06/24/16 Time of Encounter: 09:00 - Discharge Diagnosis (1) Toxic metabolic encephalopathy Priority: Primary Status: Resolved Comments: Patient remained alert and oriented 3 and denied suicidal or homicidal ideations throughout this admission. Cleared by psychiatry. (2) Drug overdose Priority: Primary Status: Acute Comments: Unclear causation at this time. Patient's tox screen was positive for marijuana however she denies even knowing where to get it and states that she is never had marijuana in her life. She denies any other type of illicit drugs. She states that she fell out of bed because her daughter usually sleeps with her but she was not sleeping with her last night. She states she remembers hitting her head and then was "fine." Patient stating that she had to come to the hospital because the hvac maintenance technician that came out to her house was angry with her. In review of her chart and EMS report, patient was noted per EMS to be wandering around her house confused and combative. At that time, patient refused transport to the hvac maintenance technician told her that she was to come with him or go with EMS at which time she consented to be brought to the hospital. Patient denies all of the above. Urinalysis negative for signs of infection. Chest x-ray abnormal however chest CT revealing no new acute processes. Head CT negative. Patient is clearly not being truthful about what happened and what she took but she does continue to decline suicidal or homicidal ideations. According to ER reports, she was incontinent of both urine and stool while in the emergency department. Patient was cleared by psychiatry to return home. Followup outpatient ITS Impressions Chest X-Ray 06/23/16 12:08 IMPRESSION: Small infiltrate within the midportion of the left lung peripherally. This finding could represent scarring versus small pneumonia. Old right rib fractures. D/ / 06/23/2016 13:56:39 Juan Diego Peña MD / daniela Interpreting Provider: Juan Diego Peña MD Head CT 06/23/16 12:10 IMPRESSION: No acute intracranial abnormality. D/ / Faizan Ovalle MD / Faizan Ovalle MD Interpreting Provider: Faizan Ovalle MD Chest CT 06/23/16 19:27 IMPRESSION: 1. No acute process in the chest. 2. Unchanged scarring, bronchiectasis, and volume loss of the left upper lobe. 3. Or 4 mm subpleural nodule in the right upper lobe unchanged from at least 05/21/2013. Given the long-term stability this is considered benign and requires no follow-up. 4. Coronary artery atherosclerotic vascular calcifications. 5. Mild mediastinal and right hilar lymphadenopathy unchanged from 04/13/2015. D/ / Jose Antonio Marx MD / Jose Antonio Marx MD Interpreting Provider: Jose Antonio Marx MD (3) Contusion of head Priority: Primary Status: Acute Comments: Patient with ecchymosis around her right eye and to her right eyebrow. Edema is minimal. EOMI. PERRLA. Head CT unremarkable. ITS Impressions Head CT 06/23/16 12:10 IMPRESSION: No acute intracranial abnormality. D/ / Faizan Ovalle MD / Faizan Ovalle MD Interpreting Provider: Faizan Ovalle MD (4) Right shoulder pain Priority: Primary Status: Acute Comments: Plain films negative, right arm neurovascularly intact, follow-up outpatient. (5) Marijuana abuse Priority: Primary Status: Acute (6) COPD (chronic obstructive pulmonary disease) Priority: Secondary Status: Chronic Comments: No acute exacerbation Qualifiers: Qualified Code(s): J44.9 - Chronic obstructive pulmonary disease, unspecified (7) Anxiety Priority: Secondary Status: Chronic (8) Hypothyroidism Priority: Secondary Status: Chronic Comments: TSH normal, follow-up outpatient. (9) Moderate recurrent major depression Priority: Secondary Status: Chronic Comments: Denied suicidal ideation throughout this admission. Cleared by psychiatry. (10) Nicotine dependence with nicotine-induced disorder Priority: Secondary Status: Chronic Comments: declined smoking cessation counseling. - Discharge Medications Home Medications: Albuterol Sulfate [Albuterol Inhaler] 2 puff IH Q4HR PRN 04/13/15 [History] Cetirizine HCl [Zyrtec] 10 mg PO DAILY 04/13/15 [History] Levothyroxine [Synthroid] 88 mcg PO DAILY 04/13/15 [History] Ranitidine HCl [Zantac] 150 mg PO BID 04/13/15 [History] Budesonide/Formoterol 160/4.5 [Symbicort 160/4.5] 2 puff IH BIDR 08/23/15 [ History] Baclofen [Lioresal] 10 mg PO TID 06/23/16 [History] Cholecalciferol (Vitamin D3) [Vitamin D3] 10,000 unit PO QWEEK 06/23/16 [History ] ClonazePAM [Klonopin] 2 mg PO BID PRN 06/23/16 [History] Diphenoxylate/Atropine [Lomotil 2.5 mg/0.025 mg] 1 tab PO Q6H PRN 06/23/16 [ History] Eszopiclone [Lunesta] 1 mg PO HS 06/23/16 [History] Fluticasone/Vilanterol [Breo Ellipta 100-25 Mcg INH] 1 puff IH DAILY 06/23/16 [ History] Allergies/Adverse Reactions: Allergies acetaminophen [From Vicodin] Allergy (Verified 03/17/16 01:24) Vomiting Amoxicillin Allergy (Verified 03/17/16 01:24) Rash hydrocodone [From Vicodin] Allergy (Verified 03/17/16 01:24) Vomiting Procedures/tests Complete & Pending: Procedures Performed prior 72 hours Category Date Time Status CT chest w/o contrast [CT chest wo con] [CT] Routine Cat Scan 06/23/16 19:27 Completed Date of admission: 06/23/16 16:03 Primary care physician: PCP NO Consults: 06/23/16 18:14 Consult to Floor Coverings Installer [CONS] Routine Reason for SW Consult: patient can not take care of herself, 9 year old daughter reports that she was taking care of her mom for over a day while she was non responsive 06/23/16 23:22 Consult to Psychiatry [CONS] Routine Consulting Provider: Psychiatry Aniya Reason for Consult: psychosis Call Completed: Yes Discharging clinician: Geovanna Hartman Anticipated date of discharge: 06/24/16 (cleared by psychiatry to go home) - Patient Status Disposition: Home, Self-Care Condition: Fair Functional capacity at discharge: independent ambulation Overall status at discharge: patient is back to baseline - Discharge Instructions Follow Up With: Guillermo Cm MD [Partnered Physician] - 06/27/16 2:15 pm [facility] [Other] Additional Instructions: Follow-up with Dr. Cm as scheduled, follow up with [facility]'s residency clinic for primary care - Diet and Activity Activity: increase activity as tolerated Diet: regular diet Hospital course: Ms. Pham is a 45 year old female with past medical history of COPD, GERD, hypothyroidism, drug abuse, anxiety and depression. Initial history obtained from ER records and EMS report. Per ER records and EMS report, EMS was dispatched to the patient's house as she had fallen out of bed and hit her head on the nightstand and her mother called the EMS. Upon EMS arrival, patient was agitated and anxious and hvac maintenance technician also responded. EMS report stating she was "confused and combative." Per ER report, patient was uncooperative, tearful, and would not speak to staff. While in the emergency department, she was incontinent of bowel and bladder. Workup negative other than tox screen positive for marijuana. Chest x-ray abnormal so a chest CT was attained which revealed no acute processes. Head CT negative. Patient was admitted to the hospitalist service for further evaluation and management. Her main complaint was right shoulder pain and plain films were taken of her shoulder that were unremarkable. At that point, she was medically cleared for psychiatry's evaluation. Suspect the patient had overdosed on a medication that does not show up on routine toxicology. In discussion with the patient, she denied suicidal or homicidal ideations throughout this admission. She was alert and oriented 3. She declined ever using any drugs even marijuana though her tox screen was positive. Of note, she is listed as being on benzos at home however these were not in her system upon presentation. Patient also states she was recently started on new medication called Viibryd but states she has been unable to get this medication covered by her insurance and has been without it for 2 weeks- she states her current psychiatrist is working to obtain a prior authorization to receive this medication. She was seen and evaluated by psychiatry who cleared her for discharge and outpatient follow-up. Regarding her head injury, she had mild edema to her right eye and EOMI. PERRLA. She was discharged home in stable condition with close outpatient follow-up recommended. ITS Impressions Chest X-Ray 06/23/16 12:08 IMPRESSION: Small infiltrate within the midportion of the left lung peripherally. This finding could represent scarring versus small pneumonia. Old right rib fractures. D/ : / 06/23/2016 13:56:39 Juan Diego Peña MD / daniela Interpreting Provider: Juan Diego Peña MD Head CT 06/23/16 12:10 IMPRESSION: No acute intracranial abnormality. D/ / Faizan Ovalle MD / Faizan Ovalle MD Interpreting Provider: Faizan Ovalle MD Chest CT 06/23/16 19:27 IMPRESSION: 1. No acute process in the chest. 2. Unchanged scarring, bronchiectasis, and volume loss of the left upper lobe. 3. Or 4 mm subpleural nodule in the right upper lobe unchanged from at least 05/21/2013. Given the long-term stability this is considered benign and requires no follow-up. 4. Coronary artery atherosclerotic vascular calcifications. 5. Mild mediastinal and right hilar lymphadenopathy unchanged from 04/13/2015. D/ / Jose Antonio Marx MD / Jose Antonio Marx MD Interpreting Provider: Jose Antonio Marx MD Shoulder X-Ray 06/24/16 10:16 IMPRESSION: No acute fracture or dislocation. D/ / 06/24/2016 13:12:41 Carlos Reis MD / abundio Interpreting Provider: Carlos Reis MD - Time Spent with Patient Total time spent providing and/or coordinating discharge services: - Constitutional Vitals: Temp Pulse Resp BP Pulse Ox 98.7 F 60 15 110/70 95 06/24/16 11:00 06/24/16 11:00 06/24/16 11:00 06/24/16 11:00 06/24/16 11:00 General appearance: Present: disheveled, A&O X 3, pleasant, no acute distress, answers questions appropriately - Head Head exam: Present: atraumatic, normocephalic - Eye Eye exam: Present: PERRL, conjuntiva pink, sclera anicteric Pupils: Present: PERRL - Neck Neck exam general surgery: Present: supple, trachea midline. Absent: lymphadenopathy - Respiratory Respiratory exam: Present: decreased breath sounds. Absent: accessory muscle use, rales, respiratory distress, rhonchi, wheezes - Cardiovascular Cardiovascular exam: Present: RRR, +S1, +S2. Absent: diastolic murmur, gallop, rubs, systolic murmur - GI/Abdominal GI/Abdominal exam: Present: normal bowel sounds, soft, no peritoneal signs. Absent: distended, tenderness - Extremities Exam Extremities exam: Present: warm, radial pulses palpable and symetrical. Absent : calf tenderness, cyanotic, pedal edema - Neurological Exam Neurological exam: Present: alert, CN II-XII intact, normal gait, oriented X3, no focal deficits, strengths equal and symetr throughout. Absent: pronater drift, facial droop, speech deficit - Skin Skin exam: Present: dry, intact, normal color, warm - Expanded Skin Exam Distribution of rash: Present: face Description of rash: Present: erythematous, tenderness - VTE Reasons for not Prescribing Prophylaxis: Treatment not Indicated - Low risk for VTE
--- NOTE | 2016-06-24 15:05 | Consult Note ---
Date of Encounter: 06/24/16 Time of Encounter: 14:15 Assessment & Recommendation (1) Bipolar 2 disorder Status: Chronic History of Present Illness Patient: known to practice within the last 3 years (Consulted on previuosly by Dr. Poe 04/14/2015) Requesting Physician: Geovanna Hartman NP Reason for consult: Possbible OD, R/O psychosis History of present illness: Ms. Pham is a 45 year old female who was admitted to the hospital for observation on a medical floor after concern of a possible drug overdose when she presented to the ED with what looked like altered mental status. Her UDS was + for Cannabus only, which she does admit to me that she has smoked before. She has been cleared by medical showing no signs of altered mental status and is stable medically; no signs that she was intoxicated or overdosed at this point in time. When I asked her why she would not talk to the mental health special effects designer in emergency room and emergency room doctor, she stated "I was pissed off about being forced to come to the hospital by the pipeliner and the squad". I asked her what that was in regards to an she states her mother called them; "my mother is not stable". She states that her mother has bipolar disorder and is not compliant taking meds and calls, files reports on her daughter/the patient that she is using drugs or is not stable on her medications , thus she gets forced into the hospital. She states this has happened before. When I ask her about not talking to the evaluators in the ED, she tells me, "I 'm stubborn like my father was. I was so angry, I just wouldn't talk." When I ask her if she understood how that may look to evaluators, she does acknowledge this and understood it would not look right/normal. She has tells me that her medications were recently changed at [facility] and she has had problems getting refills. She states that last week they were working on a prior authorization to get her insurance to pay for it so was without the medication. She thought it should have been approved by now and that the prescription may be waiting for her [facility]. She had been off the medication for approximately a week. She states that she does take Klonopin periodically as a PRN (there was none in her urine drug screen), but her mother does not like for manuela to take it and encourages her not to. So she does not take it often to keep her mother from arguing with her. She states that if the Viibryd is not ready at the pharmacy, that she planned on going back to [facility] and getting another starter packet to stay on the medication. ( She was switched on antidepressants as her last one stopped working.) She denies currently being depressed. She states that she might have been feeling "off" not being on the medication, but denied suicidal/homicidal ideation, she denied any auditory or visual hallucinations, she denied any mind reading, mind control or paranoia. She states that she did not overdosed on any medications nor did she use any synthetic drugs. She states this whole event was made up by her mother and she is tired of dealing with the stress of it all. She states that impart she feels trapped being in her mother's house because she is not been able to work the last 3 years. She states that her final social security disability hearing is sometime in the next 2 weeks. She believes that she will get back pay money for that and be able to move out with her 9-year-old daughter. She does not like her 9-year-old daughter being in that environment of tension with her and her mother. She has denies that there any safety issues living in the house, but states that she tolerates quite a bit with her mother. She denies ever having inpatient hospitalization she has had consults in the past and does follow up regularly with [facility] for her bipolar treatment. She states that she would just like to go home as she has a 9-year-old daughter that needs her and she has chores to do before it gets dark. She was not "pink slipped" by the ED and does not appear to pose an imminent threat to herself or anyone else at this time. I encouraged her to get restarted on her Viibryd and told her that there was no apparent reason to hold her in the hospital for mental health reasons. That she would be discharged as soon as medical cleared her and got her paperwork completed. I reviewed the consult findings with Geovanna Hartman CNP after meeting with the patient. CC: Geovanna Bautista Past Med Surg Social Fam HX - Past Medical History Source: patient, old records reviewed Medical history: arthritis, COPD, GERD, thyroid disease, syncope, other - Past Psychiatric History Psychiatric history: Reports: bipolar Past psychiatric history details: Bipolar II. Seen at [facility] by JADA Wilson. Compliant with medications per history. She was recently changed on antidepressant and has gone off of it for a week secondary to insurance company prior authorization. She believes it is waiting for her now at [facility]. If not, she was to return to [facility] on Friday to get samples. Family psychiatric history: Yes Family Psychiatric History Details: Her mother has Bipolar D/O that is not well controlled, per patient. She does not take her medications routinely. Her father was an alcoholic. + Depression Family History of Suicide: None - Past Surgical History Surgical History: cholecystectomy, orthopedic, other, other - Social History Smoking Status: Current some day smoker Smokeless Tobacco Status: No Alcohol use: rarely Drug use: marijuana Occupational status: disabled (Still fighting to get benefits. Hearing in 10 days) Current living situation: With Family (She lives with her mother which is a stressor for patient until she gets her SSI. ) Activity Level: Independent ambulation Recent Out of Country Travel Within the Last 8 Weeks: No Exposure or Possible Exposure to Illness During Travel: No - Family History Mother Family Member Ethnicity: Non- Living Status: Still Living Hx Family Cardiac Disorders: Yes (Tachycardia) Hx Family Respiratory Disorders: Yes (COPD) Hx Family Cancer: No Hx Family GI Disorders: No Hx Family Endocrine Disorder: No Hx Family Neuromuscular Disorders: No Hx Family Neurologic Disorders: No Hx Family HEENT Disorders: No Hx Family Autoimmune Disorders: No Medications & Allergies Albuterol Sulfate [Albuterol Inhaler] 2 puff IH Q4HR PRN 04/13/15 [History] Cetirizine HCl [Zyrtec] 10 mg PO DAILY 04/13/15 [History] Levothyroxine [Synthroid] 88 mcg PO DAILY 04/13/15 [History] Ranitidine HCl [Zantac] 150 mg PO BID 04/13/15 [History] Budesonide/Formoterol 160/4.5 [Symbicort 160/4.5] 2 puff IH BIDR 08/23/15 [ History] Baclofen [Lioresal] 10 mg PO TID 06/23/16 [History] Cholecalciferol (Vitamin D3) [Vitamin D3] 10,000 unit PO QWEEK 06/23/16 [History ] ClonazePAM [Klonopin] 2 mg PO BID PRN 06/23/16 [History] Diphenoxylate/Atropine [Lomotil 2.5 mg/0.025 mg] 1 tab PO Q6H PRN 06/23/16 [ History] Eszopiclone [Lunesta] 1 mg PO HS 06/23/16 [History] Fluticasone/Vilanterol [Breo Ellipta 100-25 Mcg INH] 1 puff IH DAILY 06/23/16 [ History] Allergies acetaminophen [From Vicodin] Allergy (Verified 03/17/16 01:24) Vomiting Amoxicillin Allergy (Verified 03/17/16 01:24) Rash hydrocodone [From Vicodin] Allergy (Verified 03/17/16 01:24) Vomiting Review of Systems Psychiatric: Reports: depression, anxiety Mental Status Exam Patient orientation: Yes Person, Yes Time, Yes Place, Yes Circumstance Level of alertness: Alert, Follows commands Patient appearance: Appropriate, Well Groomed, Well-nourished Behavior: calm, cooperative Psychomotor activity: Normal Eye contact: Maintains Eye Contact Mood description: Euthymic/stable (Smiles and laughs appropriately) Affect description: congruent with mood Speech pattern: Normal rate, Normal rhythm, Normal tone, Appropriate Speech volume: Normal Thought process: Intact Thought content: Yes Intact Attention span: Capable of Focused Attention Memory description: Grossly Intact (Reports she has some memroy issues secondary to being in a 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 No deficeits noted during the interveiw) Patient reliability: Questionable Historian Intelligence estimate: Average Judgment: Fair Insight: Full Results - Vital Signs Vital signs: Temp Pulse Resp BP Pulse Ox 98.7 F 60 15 110/70 95 06/24/16 11:00 06/24/16 11:00 06/24/16 11:00 06/24/16 11:00 06/24/16 11:00 - Labs Labs: Laboratory Last Values WBC 9.0 K/mcL (4.3-11.1) 06/24/16 03:41 RBC 3.88 M/mcL (3.82-4.97) 06/24/16 03:41 Hgb 11.7 g/dL (11.5-15.4) 06/24/16 03:41 Hct 36.5 % (35.3-44.9) 06/24/16 03:41 MCV 94.1 fL (83.0-100.0) 06/24/16 03:41 MCH 30.2 pg (28.0-33.3) 06/24/16 03:41 MCHC 32.1 g/dL (31.6-35.5) 06/24/16 03:41 RDW 16.0 % (11.5-14.5) H 06/24/16 03:41 Plt Count 338 K/mcL (140-400) 06/24/16 03:41 MPV 9.7 fL (9.4-12.4) 06/24/16 03:41 Immature Gran % 0.2 % (0-4) 06/24/16 03:41 Seg Neutrophils % 52.0 % 06/24/16 03:41 Lymphocytes % 36.3 % 06/24/16 03:41 Monocytes % 8.3 % 06/24/16 03:41 Eosinophils % 2.0 % 06/24/16 03:41 Basophils % 1.2 % 06/24/16 03:41 Neutrophils # 4.7 K/mcL (1.6-8.9) 06/24/16 03:41 Lymphocytes # 3.3 K/mcL (0.6-4.6) 06/24/16 03:41 Monocytes # 0.8 K/mcL (0.0-1.3) 06/24/16 03:41 Eosinophils # 0.2 K/mcL (0.0-0.6) 06/24/16 03:41 Basophils # 0.1 K/mcL (0.0-0.2) 06/24/16 03:41 Sodium 141 mEq/L (136-145) 06/24/16 03:41 Potassium 3.6 mEq/L (3.5-4.5) 06/24/16 03:41 Chloride 109 mEq/L (98-109) 06/24/16 03:41 Carbon Dioxide 18 mEq/L (19-29) L 06/24/16 03:41 BUN 9 mg/dL (7-20) 06/24/16 03:41 Creatinine 0.84 mg/dL (0.57-1.11) 06/24/16 03:41 Est GFR ( Amer) > 60 (> 60) 06/24/16 03:41 Est GFR (Non-Af Amer) > 60 (> 60) 06/24/16 03:41 BUN/Creatinine Ratio 11 (6-26) 06/24/16 03:41 Glucose 175 mg/dL (70-99) H 06/24/16 03:41 Calculated Osmolality 295 (280-300) 06/24/16 03:41 Lactic Acid 0.9 mmol/L (0.5-2.2) 06/23/16 12:25 Calcium 8.1 mg/dL (8.6-10.8) L 06/24/16 03:41 Total Bilirubin 0.5 mg/dL (0.2-1.2) 06/23/16 12:25 Direct Bilirubin 0.3 mg/dL (0.0-0.5) 06/23/16 12:25 Indirect Bilirubin 0.2 mg/dL (0.0-1.2) 06/23/16 12:25 AST 17 Units/L (5-34) 06/23/16 12:25 ALT 13 Units/L (0-55) 06/23/16 12:25 Alkaline Phosphatase 138 Units/L (38-126) H 06/23/16 12:25 Ammonia 21 mcmol/L (18-72) 06/23/16 12:25 Troponin I 0.01 ng/mL (0-0.03) 06/23/16 12:25 C-Reactive Protein 5 mg/L (Less than 5) H 06/23/16 12:25 Serum Total Protein 7.0 g/dL (6.0-8.3) 06/23/16 12:25 Albumin 3.1 g/dL (3.5-5.0) L 06/23/16 12:25 Globulin 3.9 g/dL (2.4-3.5) H 06/23/16 12:25 Albumin/Globulin Ratio 0.8 (1.1-2.2) L 06/23/16 12:25 TSH 1.664 mcIU/mL (0.350-4.840) 06/23/16 12:25 Urine Color Yellow (Yellow) 06/23/16 12:36 Urine Clarity Clear (Clear) 06/23/16 12:36 Urine pH 5.5 pH Units (5.0-8.0) 06/23/16 12:36 Ur Specific [place] 1.025 (1.010-1.025) 06/23/16 12:36 Urine Protein Negative mg/dL (Neg-Trace) 06/23/16 12:36 Urine Glucose (UA) Normal mg/dL (Normal) 06/23/16 12:36 Urine Ketones Trace mg/dL (Negative) H 06/23/16 12:36 Urine Blood Negative (Negative) 06/23/16 12:36 Urine Nitrite Negative (Negative) 06/23/16 12:36 Urine Bilirubin Negative (Negative) 06/23/16 12:36 Urine Urobilinogen Normal mg/dL (Normal) 06/23/16 12:36 Ur Leukocyte Esterase Negative (Negative) 06/23/16 12:36 Salicylates < 5.0 mg/dL (15-30) L 06/23/16 12:25 Urine Opiates Screen Negative ng/mL (Wtoayv=503) 06/23/16 12:36 Acetaminophen < 1.0 mcg/mL (10-30) L 06/23/16 12:25 Ur Barbiturates Screen Negative ng/mL (Qjurhj=579) 06/23/16 12:36 Ur Phencyclidine Scrn Negative ng/mL (Cutoff=25) 06/23/16 12:36 Ur Amphetamines Screen Negative ng/mL (Fdwqqr=8082) 06/23/16 12:36 U Benzodiazepines Scrn Negative ng/mL (Kwoskx=014) 06/23/16 12:36 Urine Cocaine Screen Negative ng/mL (Cutoff= 300) 06/23/16 12:36 U Marijuana (THC) Screen Positive ng/mL (Cutoff = 50) H 06/23/16 12:36 Ethyl Alcohol < 10 mg/dL (0-10) 06/23/16 12:25 - Impressions Impressions Chest CT 06/23/16 19:27 IMPRESSION: 1. No acute process in the chest. 2. Unchanged scarring, bronchiectasis, and volume loss of the left upper lobe. 3. Or 4 mm subpleural nodule in the right upper lobe unchanged from at least 05/21/2013. Given the long-term stability this is considered benign and requires no follow-up. 4. Coronary artery atherosclerotic vascular calcifications. 5. Mild mediastinal and right hilar lymphadenopathy unchanged from 04/13/2015. D/ / Jose Antonio Marx MD / Jose Antonio Marx MD Interpreting Provider: Jose Antonio Marx MD Shoulder X-Ray 06/24/16 10:16 IMPRESSION: No acute fracture or dislocation. D/ / 06/24/2016 13:12:41 Carlos Reis MD / abundio Interpreting Provider: Carlos Reis MD Consult Discharge Plan - Plan Additional Instructions: Follow-up with Dr. Cm as scheduled, follow up with [facility] residency clinic for primary care Referrals: Kg Herrera, PAC [Physician Cemetery Counselor] - (Please call to schedule your follow up appointment in 5-7 days from discharge date.) Guillermo Cm MD [Partnered Physician] - 06/27/16 2:15 pm
--- NOTE | 2016-06-24 16:24 | Electrocardiograph Report ---
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
== END 2016-06-24 16:15 | disposition home or self-care (01) ==
LOC: EMEROO 11:35 → 3BNU 11:35 → SUATTDRO 16:03 → 3BNU 16:55
PROVIDERS: ADMIT Internal Medicine; ATTEND Nurse Practitioner Family

== ENCOUNTER 2016-08-06 11:01 | Observation (INO) ==
[2016-08-06] MEDS ORDERED: 0.9 % Sodium Chloride 1,000 ML IVC ONE (11:19)
[2016-08-06 11:35] LABS: Bilirubin,Urine Small (Negative); Blood,Urine Negative (Negative); Clarity,Urine Cloudy (Clear); Color,Urine Yellow (Yellow); Glucose,Urine (UA) Normal (Normal); Ketones,Urine Negative (Negative); Leukocyte Esterase,Urine Negative (Negative); Nitrite,Urine Negative (Negative); PH,Urine 5.5 pH Units (5.0-8.0); Protein,Urine Trace mg/dL (Neg-Trace); Specific Gravity,Urine 1.024 (1.010-1.025); Urobilinogen,Urine Normal (Normal)
[2016-08-06 11:39] LABS: Bacteria,Urine None Seen per hpf (None-Few); Hyaline Casts,Urine None Seen per lpf (None-Few); Squamous Epithelial Cell,Urine Many per lpf (None-Few); WBC,Urine 0-3 per hpf (0-3)
[2016-08-06 11:41] LABS: Amphetamine Screen,Urine Negative ng/mL (Cutoff=1000); Barbiturate Screen,Urine Negative ng/mL (Cutoff=200); Benzodiazepines Screen,Urine Negative ng/mL (Cutoff=200); Cannabinoid Screen,Urine Negative ng/mL (Cutoff = 50); Cocaine Screen,Urine Negative ng/mL (Cutoff= 300); Opiate Screen,Urine Negative ng/mL (Cutoff=300); Phencyclidine Screen,Urine Negative ng/mL (Cutoff=25)
[2016-08-06 11:47] LABS: Basophils # 0.1 K/mcL (0.0-0.2); Eosinophils # 0.1 K/mcL (0.0-0.6); Hematocrit 38.1 % (35.3-44.9); Hemoglobin 12.2 g/dL (11.5-15.4); Immature Granulocytes % 0.3 % (0-4); Lymphocytes # 1.6 K/mcL (0.6-4.6); Lymphocytes % 16.4 %; Mean Corpuscular Hemoglobin 29.3 pg (28.0-33.3); Mean Corpuscular Volume 91.6 fL (83.0-100.0); Mean Platelet Volume 9.4 fL (9.4-12.4); Neutrophils # 7.2 K/mcL (1.6-8.9); Platelet Count 292 K/mcL (140-400); Red Blood Count 4.16 M/mcL (3.82-4.97); Red Cell Distribution Width 16.3 % (11.5-14.5); Segmented Neutrophils % 71.3 %
--- NOTE | 2016-08-06 11:51 | Emergency Department Note ---
Overdose - Medical Records Medical records reviewed: Yes I reviewed the patient's medical records. - Lab Data Lab results reviewed: Yes I reviewed the patient's lab results. Result diagrams: 08/06/16 11:39 08/06/16 11:39 Lab Results 08/06/16 08/06/16 08/06/16 Range/Units 11:22 11:22 11:24 WBC (4.3-11.1) K/mcL RBC (3.82-4.97) M/mcL Hgb (11.5-15.4) g/dL Hct (35.3-44.9) % MCV (83.0-100.0) fL MCH (28.0-33.3) pg MCHC (31.6-35.5) g/dL RDW (11.5-14.5) % Plt Count (140-400) K/mcL MPV (9.4-12.4) fL Immature Gran % (0-4) % Seg Neutrophils % % Lymphocytes % % Monocytes % % Eosinophils % % Basophils % % Neutrophils # (1.6-8.9) K/mcL Lymphocytes # (0.6-4.6) K/mcL Monocytes # (0.0-1.3) K/mcL Eosinophils # (0.0-0.6) K/mcL Basophils # (0.0-0.2) K/mcL ABG pH (7.32-7.45) pH Units ABG pCO2 (35-45) mmHg ABG pO2 (85-104) mmHg ABG HCO3 (21-27) mEQ/L ABG Total CO2 (20-26) mEq/L ABG O2 Saturation (95-98) % ABG Base Excess (-2.0 to 3.0) mEq/L Blood Gas Modality Inspired O2 % Sodium (136-145) mEq/L Potassium (3.5-4.5) mEq/L Chloride (98-109) mEq/L Carbon Dioxide (19-29) mEq/L BUN (7-20) mg/dL Creatinine (0.57-1.11) mg/dL Est GFR ( Amer) (> 60) Est GFR (Non-Af Amer) (> 60) BUN/Creatinine Ratio (6-26) Glucose (70-99) mg/dL POC Glucose (58-89) Calculated Osmolality (280-300) Calcium (8.6-10.8) mg/dL Total Bilirubin (0.2-1.2) mg/dL Direct Bilirubin (0.0-0.5) mg/dL Indirect Bilirubin (0.0-1.2) mg/dL AST (5-34) Units/L ALT (0-55) Units/L Alkaline Phosphatase (38-126) Units/L Serum Total Protein (6.0-8.3) g/dL Albumin (3.5-5.0) g/dL Globulin (2.4-3.5) g/dL Albumin/Globulin Ratio (1.1-2.2) Urine Color Yellow (Yellow) Urine Clarity Cloudy A (Clear) Urine pH 5.5 (5.0-8.0) pH Units Ur Specific [place] 1.024 (1.010-1.025) Urine Protein Trace (Neg-Trace) mg/dL Urine Glucose (UA) Normal (Normal) mg/dL Urine Ketones Negative (Negative) mg/dL Urine Blood Negative (Negative) Urine Nitrite Negative (Negative) Urine Bilirubin Small H (Negative) Urine Urobilinogen Normal (Normal) mg/dL Ur Leukocyte Esterase Negative (Negative) Urine Microscopic RBC 5-15 H (0-3) per hpf Urine Microscopic WBC 0-3 (0-3) per hpf Ur Squamous Epith Cells Many H (None-Few) per lpf Urine Bacteria None Seen (None-Few) per hpf Hyaline Casts None Seen (None-Few) per lpf Urine Test Negative (Negative) Salicylates (15-30) mg/dL Urine Opiates Screen Negative (Bkcyqp=082) ng/mL Acetaminophen (10-30) mcg/mL Ur Barbiturates Screen Negative (Peexro=146) ng/mL Phenytoin (10-20) mcg/mL Ur Phencyclidine Scrn Negative (Cutoff=25) ng/mL Ur Amphetamines Screen Negative (Lktzht=6092) ng/mL U Benzodiazepines Scrn Negative (Xjkyoy=028) ng/mL [place] (0.6-1.2) mEq/L Urine Cocaine Screen Negative (Cutoff= 300) ng/mL U Marijuana (THC) Screen Negative (Cutoff = 50) ng/mL Ethyl Alcohol (0-10) mg/dL 08/06/16 08/06/16 08/06/16 Range/Units 11:39 11:39 11:39 WBC 10.0 (4.3-11.1) K/mcL RBC 4.16 (3.82-4.97) M/mcL Hgb 12.2 (11.5-15.4) g/dL Hct 38.1 (35.3-44.9) % MCV 91.6 (83.0-100.0) fL MCH 29.3 (28.0-33.3) pg MCHC 32.0 (31.6-35.5) g/dL RDW 16.3 H (11.5-14.5) % Plt Count 292 (140-400) K/mcL MPV 9.4 (9.4-12.4) fL Immature Gran % 0.3 (0-4) % Seg Neutrophils % 71.3 % Lymphocytes % 16.4 % Monocytes % 10.0 % Eosinophils % 1.0 % Basophils % 1.0 % Neutrophils # 7.2 (1.6-8.9) K/mcL Lymphocytes # 1.6 (0.6-4.6) K/mcL Monocytes # 1.0 (0.0-1.3) K/mcL Eosinophils # 0.1 (0.0-0.6) K/mcL Basophils # 0.1 (0.0-0.2) K/mcL ABG pH (7.32-7.45) pH Units ABG pCO2 (35-45) mmHg ABG pO2 (85-104) mmHg ABG HCO3 (21-27) mEQ/L ABG Total CO2 (20-26) mEq/L ABG O2 Saturation (95-98) % ABG Base Excess (-2.0 to 3.0) mEq/L Blood Gas Modality Inspired O2 % Sodium 142 (136-145) mEq/L Potassium 3.9 (3.5-4.5) mEq/L Chloride 108 (98-109) mEq/L Carbon Dioxide 24 (19-29) mEq/L BUN 18 (7-20) mg/dL Creatinine 0.80 (0.57-1.11) mg/dL Est GFR ( Amer) > 60 (> 60) Est GFR (Non-Af Amer) > 60 (> 60) BUN/Creatinine Ratio 23 (6-26) Glucose 104 H (70-99) mg/dL POC Glucose (58-89) Calculated Osmolality 296 (280-300) Calcium 8.1 L (8.6-10.8) mg/dL Total Bilirubin 0.3 (0.2-1.2) mg/dL Direct Bilirubin 0.2 (0.0-0.5) mg/dL Indirect Bilirubin 0.1 (0.0-1.2) mg/dL AST 18 (5-34) Units/L ALT 13 (0-55) Units/L Alkaline Phosphatase 130 H (38-126) Units/L Serum Total Protein 7.2 (6.0-8.3) g/dL Albumin 3.5 (3.5-5.0) g/dL Globulin 3.7 H (2.4-3.5) g/dL Albumin/Globulin Ratio 0.9 L (1.1-2.2) Urine Color (Yellow) Urine Clarity (Clear) Urine pH (5.0-8.0) pH Units Ur Specific [place] (1.010-1.025) Urine Protein (Neg-Trace) mg/dL Urine Glucose (UA) (Normal) mg/dL Urine Ketones (Negative) mg/dL Urine Blood (Negative) Urine Nitrite (Negative) Urine Bilirubin (Negative) Urine Urobilinogen (Normal) mg/dL Ur Leukocyte Esterase (Negative) Urine Microscopic RBC (0-3) per hpf Urine Microscopic WBC (0-3) per hpf Ur Squamous Epith Cells (None-Few) per lpf Urine Bacteria (None-Few) per hpf Hyaline Casts (None-Few) per lpf Urine Test (Negative) Salicylates < 5.0 L (15-30) mg/dL Urine Opiates Screen (Okbann=270) ng/mL Acetaminophen < 1.0 L (10-30) mcg/mL Ur Barbiturates Screen (Rszexk=819) ng/mL Phenytoin (10-20) mcg/mL Ur Phencyclidine Scrn (Cutoff=25) ng/mL Ur Amphetamines Screen (Kafkfa=9956) ng/mL U Benzodiazepines Scrn (Edgnex=577) ng/mL [place] < 0.1 L (0.6-1.2) mEq/L Urine Cocaine Screen (Cutoff= 300) ng/mL U Marijuana (THC) Screen (Cutoff = 50) ng/mL Ethyl Alcohol < 10 (0-10) mg/dL 08/06/16 08/06/16 08/06/16 Range/Units 11:39 11:44 11:54 WBC (4.3-11.1) K/mcL RBC (3.82-4.97) M/mcL Hgb (11.5-15.4) g/dL Hct (35.3-44.9) % MCV (83.0-100.0) fL MCH (28.0-33.3) pg MCHC (31.6-35.5) g/dL RDW (11.5-14.5) % Plt Count (140-400) K/mcL MPV (9.4-12.4) fL Immature Gran % (0-4) % Seg Neutrophils % % Lymphocytes % % Monocytes % % Eosinophils % % Basophils % % Neutrophils # (1.6-8.9) K/mcL Lymphocytes # (0.6-4.6) K/mcL Monocytes # (0.0-1.3) K/mcL Eosinophils # (0.0-0.6) K/mcL Basophils # (0.0-0.2) K/mcL ABG pH 7.33 (7.32-7.45) pH Units ABG pCO2 49 H (35-45) mmHg ABG pO2 54 L (85-104) mmHg ABG HCO3 25.8 (21-27) mEQ/L ABG Total CO2 27.3 H (20-26) mEq/L ABG O2 Saturation 85 L (95-98) % ABG Base Excess -0.7 (-2.0 to 3.0) mEq/L Blood Gas Modality [place] Inspired O2 28 % Sodium (136-145) mEq/L Potassium (3.5-4.5) mEq/L Chloride (98-109) mEq/L Carbon Dioxide (19-29) mEq/L BUN (7-20) mg/dL Creatinine (0.57-1.11) mg/dL Est GFR ( Amer) (> 60) Est GFR (Non-Af Amer) (> 60) BUN/Creatinine Ratio (6-26) Glucose (70-99) mg/dL POC Glucose 105 H (58-89) Calculated Osmolality (280-300) Calcium (8.6-10.8) mg/dL Total Bilirubin (0.2-1.2) mg/dL Direct Bilirubin (0.0-0.5) mg/dL Indirect Bilirubin (0.0-1.2) mg/dL AST (5-34) Units/L ALT (0-55) Units/L Alkaline Phosphatase (38-126) Units/L Serum Total Protein (6.0-8.3) g/dL Albumin (3.5-5.0) g/dL Globulin (2.4-3.5) g/dL Albumin/Globulin Ratio (1.1-2.2) Urine Color (Yellow) Urine Clarity (Clear) Urine pH (5.0-8.0) pH Units Ur Specific [place] (1.010-1.025) Urine Protein (Neg-Trace) mg/dL Urine Glucose (UA) (Normal) mg/dL Urine Ketones (Negative) mg/dL Urine Blood (Negative) Urine Nitrite (Negative) Urine Bilirubin (Negative) Urine Urobilinogen (Normal) mg/dL Ur Leukocyte Esterase (Negative) Urine Microscopic RBC (0-3) per hpf Urine Microscopic WBC (0-3) per hpf Ur Squamous Epith Cells (None-Few) per lpf Urine Bacteria (None-Few) per hpf Hyaline Casts (None-Few) per lpf Urine Test (Negative) Salicylates (15-30) mg/dL Urine Opiates Screen (Edxjgc=513) ng/mL Acetaminophen (10-30) mcg/mL Ur Barbiturates Screen (Svpqmf=311) ng/mL Phenytoin < 0.5 L (10-20) mcg/mL Ur Phencyclidine Scrn (Cutoff=25) ng/mL Ur Amphetamines Screen (Xpofxg=3652) ng/mL U Benzodiazepines Scrn (Oyusqo=103) ng/mL [place] (0.6-1.2) mEq/L Urine Cocaine Screen (Cutoff= 300) ng/mL U Marijuana (THC) Screen (Cutoff = 50) ng/mL Ethyl Alcohol (0-10) mg/dL - Radiology Data Radiology results reviewed: Yes I reviewed the patient's radiology results. - EKG Data EKG attestation: Yes I reviewed and interpreted this EKG. EKG shows normal: sinus rhythm, axis, intervals, QRS complexes, ST-T waves Rate: normal Interpretation: no acute changes Overdose HPI - General Chief Complaint: ED Overdose Stated Complaint: Overdose Time Seen by Provider: 08/06/16 11:09 Source: patient (Minimal information was gathered from patient), EMS Mode of arrival: EMS Limitations: altered mental status Nursing Notes Reviewed: Yes Vital Signs Reviewed: Yes - History of Present Illness Pt Subjective Complaint: intentional overdose Onset (ago): unknown (Patient was at the halfway. She was found with altered mental status and a bag of pills next to her. She was transported here immediately however the time of the ingestion is unclear but may have been as much as a couple hours ago.) Intent: unwilling to say How Overdose Was Discovered: other (Deputies at the halfway found the patient with pills next to her) Associated symptoms: lethargy Treatments Prior to Arrival: oxygen, narcan (Narcan was administered by the squad with minimal results) - Related Data Home Medications Medication Instructions Recorded Confirmed Albuterol Sulfate [Albuterol 2 puff IH Q4HR PRN 04/13/15 06/23/16 Inhaler] Cetirizine HCl [Zyrtec] 10 mg PO DAILY 04/13/15 06/23/16 Levothyroxine [Synthroid] 88 mcg PO DAILY 04/13/15 06/23/16 Ranitidine HCl [Zantac] 150 mg PO BID 04/13/15 06/23/16 Budesonide/Formoterol 160/4.5 2 puff IH BIDR 08/23/15 06/23/16 [Symbicort 160/4.5] Baclofen [Lioresal] 10 mg PO TID 06/23/16 06/23/16 Cholecalciferol (Vitamin D3) 10,000 unit PO QWEEK 06/23/16 06/23/16 [Vitamin D3] ClonazePAM [Klonopin] 2 mg PO BID PRN 06/23/16 06/23/16 Diphenoxylate/Atropine [Lomotil 1 tab PO Q6H PRN 06/23/16 06/23/16 2.5 mg/0.025 mg] Eszopiclone [Lunesta] 1 mg PO HS 06/23/16 06/23/16 Fluticasone/Vilanterol [Breo 1 puff IH DAILY 06/23/16 06/23/16 Ellipta 100-25 Mcg INH] Allergies Allergy/AdvReac Type Severity Reaction Status Date / Time acetaminophen [From Vicodin] Allergy Vomiting Verified 03/17/16 01:24 Amoxicillin Allergy Rash Verified 03/17/16 01:24 hydrocodone [From Vicodin] Allergy Vomiting Verified 03/17/16 01:24 Limitations: ROS unobtainable due to patients medical condition (Opens her eyes to painful stimuli and very loud voice but is not talking) Past Medical History - Past Medical History Source: old records reviewed (Patient was here at the end of May and I have a full H&P to draw from), nursing notes reviewed, other (EMS information) Medical history: Reports: arthritis, COPD, GERD, thyroid disease, syncope, other Surgical history: Reports: cholecystectomy, orthopedic, other, other Psychiatric history: Reports: bipolar TRANSLITERATOR history: Reports: bilateral tubal ligation - Social History Smoking Status: Current some day smoker Smokeless Tobacco Status: No Alcohol use: Reports: rarely Drug use: Reports: marijuana Physical Exam - General Limitations: altered mental status General appearance: appears intoxicated, lethargic - Head Head exam: atraumatic, normocephalic - Eye Eye exam: Present: normal appearance, PERRL. Absent: nystagmus - ENT ENT exam: normal oropharynx, mucous membranes moist, normal external ear exam - Neck Neck exam: Present: normal inspection. Absent: meningismus - Chest Chest inspection: Present: normal inspection, symmetric chest wall rise. Absent : tenderness - Respiratory Respiratory exam: Present: normal lung sounds bilaterally. Absent: respiratory distress, wheezes - Cardiovascular Cardiovascular exam: Present: regular rate, normal rhythm, normal heart sounds - Abdominal Exam Abdominal exam: Present: soft, Non-Tender - Extremities Exam Extremities exam: Present: normal inspection, normal capillary refill. Absent: pedal edema - Skin Skin exam: Present: warm, dry Course Course Narrative: Patient took an unknown amount of an unknown type of pills sometime before arrival. She is very lethargic although she will is protecting her airway and she will open her eyes and sit up to painful stimuli and loud voice. However she is not answering questions. This is similar to a presentation last month. There are no signs of trauma. There are no indications of infection at this point. I suspect this is medication related. The intent of the ingestion is unclear. Labs have been done. Patient will likely need to be admitted until the effect of the pills wears off at which time she can be reevaluated and assessed for psychiatric or suicidal issues. - Reevaluation(s) Reevaluation #1: Patient's labs come back and did not give us any indication of the agent that she ingested. Is also no indication of infection or other problem. Patient will need to be admitted to the hospital. She is becoming more alert and more active and still is clearly altered. She continues to protect her airway and maintaining her O2 sats in although there is a very minimal respiratory acidosis on the ABG I do not feel the patient requires ventilatory assistance at this point. I will discuss the case with the hospitalist. Time: 12:37 - Consultations Consultation #1: Dr. Engel, hospitalist - I discussed the case with the hospitalist. He has accepted the patient for admission. Time: 12:37 Vital Signs Temperature 97.4 F L 08/06/16 11:03 Pulse Rate 86 08/06/16 11:03 Respiratory Rate 14 08/06/16 11:03 Blood Pressure 133/76 08/06/16 11:03 O2 Sat by Pulse Oximetry 97 08/06/16 11:03 Temperature 97.4 F L 08/06/16 11:03 Pulse Rate 84 08/06/16 12:20 Respiratory Rate 14 08/06/16 12:20 Blood Pressure 150/84 08/06/16 12:20 O2 Sat by Pulse Oximetry 100 08/06/16 12:20 Oxygen Delivery Oxygen Delivery Nasal Cannula Critical Care Time Critical Care Time: Yes Total Critical Care Time: 30 Attestation: I was called to bedside immediately on patient arrival. Patient had decreased level of consciousness and a potentially life-threatening problem.. I had a assess her respiratory status. I spent time doing the history and physical as well as serial examinations. Ordering lab tests. Interpreting lab values. Gathering information from multiple sources. Consultation and Arranging admission. Disposition Clinical Impression: Multiple drug overdose Qualifiers: Encounter type: initial encounter Injury intent: undetermined intent Qualified Code(s): T50.904A - Poisoning by unspecified drugs, medicaments and biological substances, undetermined, initial encounter Altered mental status Qualifiers: Altered mental status type: unspecified Qualified Code(s): R41.82 - Altered mental status, unspecified Disposition: Admitted As Inpatient Condition: Serious Referrals: NO,PCP [Primary Care Provider] - Forms: ED Satisfaction Letter Time of Disposition: 12:40
[2016-08-06 11:52] LABS: ABG Base Excess -0.7 mEq/L (-2.0 to 3.0); ABG HCO3 25.8 mEQ/L (21-27); ABG Oxygen Saturation 85 % (95-98); ABG PCO2 49 mmHg (35-45); ABG PH 7.33 pH Units (7.32-7.45); ABG PO2 54 mmHg (85-104); ABG TCO2 27.3 mEq/L (20-26)
[2016-08-06 11:53] LABS: Blood Gas FiO2 28 %
[2016-08-06 12:03] LABS: Acetaminophen < 1.0 mcg/mL (10-30); Alanine Aminotransferase 13 Units/L (0-55); Albumin 3.5 g/dL (3.5-5.0); Albumin/Globulin Ratio 0.9 (1.1-2.2); Alkaline Phosphatase 130 Units/L (38-126); Aspartate Amino Transferase 18 Units/L (5-34); BUN/Creatinine Ratio 23 (6-26); Bilirubin,Direct 0.2 mg/dL (0.0-0.5); Bilirubin,Indirect 0.1 mg/dL (0.0-1.2); Bilirubin,Total 0.3 mg/dL (0.2-1.2); Blood Urea Nitrogen 18 mg/dL (7-20); Calcium 8.1 mg/dL (8.6-10.8); Carbon Dioxide 24 mEq/L (19-29); Chloride 108 mEq/L (98-109); Ethanol < 10 mg/dL (0-10); Globulin 3.7 g/dL (2.4-3.5); Glucose 104 mg/dL (70-99); Osmolality,Calculated 296 (280-300); Potassium 3.9 mEq/L (3.5-4.5); Salicylate < 5.0 mg/dL (15-30); Sodium 142 mEq/L (136-145); Total Protein 7.2 g/dL (6.0-8.3); eGFR For African Americans > 60 (> 60); eGFR For Non-African Americans > 60 (> 60)
[2016-08-06 12:10] LABS: Phenytoin (Dilantin) < 0.5 mcg/mL (10-20)
[2016-08-06 12:51] LABS: Valproate < 2.00 mcg/mL (50-100)
[2016-08-06] MEDS ORDERED: Naloxone 0.4 MG/ML INJ IVP PRN (13:45)
--- NOTE | 2016-08-06 14:35 | Internal Med History&Physical ---
Date of Encounter: 08/06/16 Time of Encounter: 13:20 Assessment and Plan (1) Toxic metabolic encephalopathy Current visit: Yes Status: Acute Acute toxic metabolic encephalopathy due to multiple drug overdose. Monitor vital signs closely. IV hydration. Monitor with telemetry. (2) Multiple drug overdose Current visit: Yes Status: Acute Patient with multiple unknown drug overdose. Urine drug screen negative for benzos, opiates. We will monitor closely with telemetry. At high risk for complications due to unknown drugs involved. Qualifiers: Encounter type: initial encounter Injury intent: undetermined intent Qualified Code(s): T50.904A - Poisoning by unspecified drugs, medicaments and biological substances, undetermined, initial encounter (3) COPD (chronic obstructive pulmonary disease) Current visit: No Status: Chronic Not in acute exacerbation at this time. We will use nebs as needed. Qualifiers: COPD type: unspecified COPD Qualified Code(s): J44.9 - Chronic obstructive pulmonary disease, unspecified (4) Contusion of head Current visit: No Status: Chronic Scalp hematoma present without any skull fracture due to recent contusion to head Qualifiers: Encounter type: initial encounter Contusion of head detail: eyelid Laterality: right Qualified Code(s): S00.11XA - Contusion of right eyelid and periocular area, initial encounter Internal Medicine - H&P: HPI Chief complaint: Altered mental status from possible drug overdose Admitted From: Emergency Dept Plans for Post Hospital Care: Transfer Psych Facility History of present illness: Ms. Pham is a 45 year old female with a history of COPD, gastroesophageal reflux disease, thyroid disease was brought into the ER with altered mental status. There was concern for possible ingestion of unknown number of illness prior to arrival to the ER. Exam known what kind of medication she took. She was apparently in [place] custody when this happened. Currently the patient is unable to provide much history. She is very drowsy and awakes to pain but falls asleep soon. History has been obtained through review of ED records and previous hospital admissions. Patient had been admitted here in May of this year with a similar presentation. She had been denied suicidal ideation and was cleared for discharge home by psychiatry. Past Med Surg Social Fam HX - Past Medical History Medical history: arthritis, COPD, GERD, thyroid disease, syncope, other Psychiatric history: bipolar - Past Surgical History Surgical History: cholecystectomy, orthopedic, other, other - Social History Smoking Status: Current some day smoker Smokeless Tobacco Status: No Alcohol use: rarely Drug use: marijuana - Family History Mother Family Member Ethnicity: Non- Living Status: Still Living Hx Family Cardiac Disorders: Yes (Tachycardia) Hx Family Respiratory Disorders: Yes (COPD) Hx Family Cancer: No Hx Family GI Disorders: No Hx Family Endocrine Disorder: No Hx Family Neuromuscular Disorders: No Hx Family Neurologic Disorders: No Hx Family HEENT Disorders: No Hx Family Autoimmune Disorders: No Internal Medicine - H&P: Meds Albuterol Sulfate [Albuterol Inhaler] 2 puff IH Q4HR PRN 04/13/15 [History] Cetirizine HCl [Zyrtec] 10 mg PO DAILY 04/13/15 [History] Levothyroxine [Synthroid] 88 mcg PO DAILY 04/13/15 [History] Ranitidine HCl [Zantac] 150 mg PO BID 04/13/15 [History] Budesonide/Formoterol 160/4.5 [Symbicort 160/4.5] 2 puff IH BIDR 08/23/15 [ History] Baclofen [Lioresal] 10 mg PO TID 06/23/16 [History] Cholecalciferol (Vitamin D3) [Vitamin D3] 10,000 unit PO QWEEK 06/23/16 [History ] ClonazePAM [Klonopin] 2 mg PO BID PRN 06/23/16 [History] Diphenoxylate/Atropine [Lomotil 2.5 mg/0.025 mg] 1 tab PO Q6H PRN 06/23/16 [ History] Eszopiclone [Lunesta] 1 mg PO HS 06/23/16 [History] Fluticasone/Vilanterol [Breo Ellipta 100-25 Mcg INH] 1 puff IH DAILY 06/23/16 [ History] Allergies acetaminophen [From Vicodin] Allergy (Verified 03/17/16 01:24) Vomiting Amoxicillin Allergy (Verified 03/17/16 01:24) Rash hydrocodone [From Vicodin] Allergy (Verified 03/17/16 01:24) Vomiting ROS unobtainable: due to mental status All Systems PM: A 10-system review of systems was performed and is negative for pertinent findings except as documented above in the HPI. Review of systems: A complete review of systems is unable to be obtained at this time due to patient's clinical condition - Constitutional Vitals: Temp Pulse Resp BP Pulse Ox 97.4 F L 98 17 164/84 99 08/06/16 11:03 08/06/16 14:15 08/06/16 14:15 08/06/16 14:15 08/06/16 14:15 Exam: Patient is very somnolent and only responds to painful stimuli. Excessively drowsy and unable to answer questions at this time. - Eye Eye exam: Present: PERRL, conjuntiva pink, sclera anicteric - Neck Neck exam general surgery: Present: supple, trachea midline. Absent: lymphadenopathy - Respiratory Respiratory exam: Present: CTAB. Absent: accessory muscle use, rales, rhonchi, wheezes - Cardiovascular Cardiovascular exam: Present: RRR, +S1, +S2. Absent: diastolic murmur, gallop, rubs, systolic murmur - GI/Abdominal GI/Abdominal exam: Present: normal bowel sounds, soft, no peritoneal signs. Absent: distended, tenderness - Extremities Exam Extremities exam: Present: warm, radial pulses palpable and symetrical. Absent : calf tenderness, cyanotic, pedal edema - Neurological Exam Neurological exam: Present: altered Additional comments: Unable to complete neurologic examination due to patient's condition - Skin Skin exam: Present: dry, intact Internal Med - H&P Results - Labs CBC & Chem 7: 08/06/16 11:39 08/06/16 11:39 - Attending Attestation This document has been at least partially created by [employer] recognition technology by Dr. Engel. Errors in grammar, wording or other phrases may exist. If errors are found after the documentation is signed, they will be addressed individually in the addendum section of this document when appropriate.
--- NOTE | 2016-08-06 15:19 | Electrocardiograph Report ---
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
[2016-08-06] MEDS ORDERED: *HR* Morphine 2 MG/ML SYRINGE IVP PRN (16:22)
[2016-08-06] MEDS: 0.9 % Sodium Chloride 1,000 ML IVC SCH (16:46)
[2016-08-06] MEDS: Pantoprazole 40 MG VIAL IVP SCH (16:46)
[2016-08-06] MEDS: *HR* LORazepam 2 MG/ML VIAL IVP PRN (17:46)
[2016-08-07] MEDS: *HR* LORazepam 2 MG/ML VIAL IVP PRN (01:38)
[2016-08-07] MEDS: 0.9 % Sodium Chloride 1,000 ML IVC SCH (01:39)
[2016-08-07 05:59] LABS: Basophils # 0.1 K/mcL (0.0-0.2); Basophils % 1.1 %; Eosinophils # 0.2 K/mcL (0.0-0.6); Eosinophils % 2.3 %; Hematocrit 33.2 % (35.3-44.9); Immature Granulocytes % 0.4 % (0-4); Lymphocytes # 3.1 K/mcL (0.6-4.6); Lymphocytes % 37.5 %; Mean Corpuscular HGB Conc 31.3 g/dL (31.6-35.5); Mean Corpuscular Hemoglobin 29.2 pg (28.0-33.3); Mean Corpuscular Volume 93.3 fL (83.0-100.0); Mean Platelet Volume 9.8 fL (9.4-12.4); Monocytes # 0.9 K/mcL (0.0-1.3); Monocytes % 11.1 %; Platelet Count 264 K/mcL (140-400); Red Blood Count 3.56 M/mcL (3.82-4.97); Red Cell Distribution Width 16.5 % (11.5-14.5); Segmented Neutrophils % 47.6 %
[2016-08-07 06:13] LABS: Hemoglobin 10.4 g/dL (11.5-15.4)
[2016-08-07 06:15] LABS: BUN/Creatinine Ratio 19 (6-26); Blood Urea Nitrogen 13 mg/dL (7-20); Calcium 7.7 mg/dL (8.6-10.8); Carbon Dioxide 23 mEq/L (19-29); Chloride 112 mEq/L (98-109); Glucose 89 mg/dL (70-99); Osmolality,Calculated 294 (280-300); Potassium 3.6 mEq/L (3.5-4.5); Sodium 142 mEq/L (136-145); eGFR For African Americans > 60 (> 60); eGFR For Non-African Americans > 60 (> 60)
[2016-08-07] MEDS: Pantoprazole 40 MG VIAL IVP SCH (09:33)
--- NOTE | 2016-08-07 12:41 | Internal Med Progress Note ---
Date of Encounter: 08/07/16 Time of Encounter: 12:37 - Assessment and plan (1) Toxic metabolic encephalopathy Current Visit: Yes Status: Acute Assessment and plan: 2ry to Baclofen overdose, unintentional fall precautions supportive measures (2) COPD (chronic obstructive pulmonary disease) Current Visit: No Status: Chronic Assessment and plan: acute COPD exacerbation likely secondary to acute bronchitis viral vs bacterial start prednisone duonebs azithromycin , order CXR Qualifiers: COPD type: unspecified COPD Qualified Code(s): J44.9 - Chronic obstructive pulmonary disease, unspecified (3) Drug overdose Current Visit: No Status: Acute Assessment and plan: CT of the head is k Qualifiers: Encounter type: initial encounter Injury intent: accidental or unintentional Qualified Code(s): T50.901A - Poisoning by unspecified drugs, medicaments and biological substances, accidental (unintentional), initial encounter (4) Bipolar 2 disorder Current Visit: No Status: Chronic Assessment and plan: continue Vibryd (5) Hypothyroidism Current Visit: No Status: Chronic Qualifiers: Hypothyroidism type: unspecified Qualified Code(s): E03.9 - Hypothyroidism , unspecified (6) Nicotine dependence with nicotine-induced disorder Current Visit: No Status: Chronic Assessment and plan: smoking cessation counseling Qualifiers: Nicotine product type: cigarettes Qualified Code(s): F17.219 - Nicotine dependence, cigarettes, with unspecified nicotine-induced disorders - Subjective Interval history: does not feel dizzy, no suicidal ideation, no Cp , feels mildly SOB, no abdominal pain , n fever - Constitutional Vitals: Temp Pulse Resp BP Pulse Ox 97.8 F 93 18 106/62 96 08/07/16 08:00 08/07/16 11:14 08/07/16 11:14 08/07/16 11:14 08/07/16 11:14 General appearance: Present: A&O X 3 - Head Head exam: Present: atraumatic, normocephalic - Eye Eye exam: Present: PERRL, conjuntiva pink, sclera anicteric Pupils: Present: PERRL - Neck Neck exam general surgery: Present: supple, trachea midline. Absent: lymphadenopathy - Respiratory Respiratory exam: Present: CTAB, rales (diffuse crackles and wheezing more right than left). Absent: accessory muscle use, rhonchi, wheezes - Cardiovascular Cardiovascular exam: Present: RRR, +S1, +S2. Absent: diastolic murmur, gallop, rubs, systolic murmur - GI/Abdominal GI/Abdominal exam: Present: normal bowel sounds, soft, no peritoneal signs. Absent: distended, tenderness - Extremities Exam Extremities exam: Present: warm, radial pulses palpable and symetrical. Absent : calf tenderness, cyanotic, pedal edema - Neurological Exam Neurological exam: Present: CN II-XII intact, oriented X3, no focal deficits. Absent: pronater drift, facial droop, speech deficit Additional comments: small forehead hematoma - Skin Skin exam: Present: dry, intact Internal Medicine: Result - Labs CBC & Chem 7: 08/07/16 05:30 08/07/16 05:30 Labs: Short CBC 08/07/16 Range/Units 05:30 WBC 8.3 (4.3-11.1) K/mcL Hgb 10.4 L D (11.5-15.4) g/dL Hct 33.2 L (35.3-44.9) % Plt Count 264 (140-400) K/mcL Neutrophils # 4.0 (1.6-8.9) K/mcL BMP 08/07/16 05:30 Sodium 142 Potassium 3.6 Chloride 112 H Carbon Dioxide 23 BUN 13 Creatinine 0.68 Glucose 89 Calcium 7.7 L - ABG Interpretation ABG results: ABG ABG pH 7.33 pH Units (7.32-7.45) 08/06/16 11:44 ABG pCO2 49 mmHg (35-45) H 08/06/16 11:44 ABG pO2 54 mmHg (85-104) L 08/06/16 11:44 ABG O2 Saturation 85 % (95-98) L 08/06/16 11:44 - VTE Documentation of Mechanical Device: Graduated compression elastic hosiery Consult Discharge Plan - Plan Referrals: NO,PCP [Primary Care Provider] -
[2016-08-07] MEDS ORDERED: Azithromycin 250 MG TABLET PO ONE (12:45)
[2016-08-07] MEDS: predniSONE 20 MG TABLET PO SCH (13:23)
[2016-08-07] MEDS: Ipratropium/Albuterol Neb 3 ML IH SCH ×2 (16:01→22:16)
[2016-08-08] MEDS: Ipratropium/Albuterol Neb 3 ML IH SCH ×4 (04:12→15:41)
[2016-08-08 07:36] VITALS: BP 117/68
[2016-08-08] MEDS: predniSONE 20 MG TABLET PO SCH (08:21)
[2016-08-08] MEDS: Acetaminophen 325 MG TABLET PO PRN ×2 (08:21→15:33)
[2016-08-08] MEDS: Pantoprazole 40 MG VIAL IVP SCH (08:22)
[2016-08-08] MEDS ORDERED: Azithromycin 250 MG TABLET PO SCH (09:00)
[2016-08-08] MEDS ORDERED: (Vilazodone Hcl [Viibryd] 20 MG) PO SCH (09:00)
--- NOTE | 2016-08-08 11:44 | Discharge Summary ---
Date of Encounter: 08/08/16 Time of Encounter: 11:43 - Discharge Diagnosis (1) Toxic metabolic encephalopathy Priority: Primary Status: Acute Comments: 2ry to Baclofen overdose, unintentional (2) COPD (chronic obstructive pulmonary disease) Priority: Secondary Status: Chronic Comments: acute COPD exacerbation likely secondary to acute bronchitis viral vs bacterial Qualifiers: COPD type: unspecified COPD Qualified Code(s): J44.9 - Chronic obstructive pulmonary disease, unspecified (3) Drug overdose Priority: Primary Status: Acute Qualifiers: Encounter type: initial encounter Injury intent: accidental or unintentional Qualified Code(s): T50.901A - Poisoning by unspecified drugs, medicaments and biological substances, accidental (unintentional), initial encounter (4) Bipolar 2 disorder Priority: Secondary Status: Chronic (5) Hypothyroidism Priority: Secondary Status: Chronic Qualifiers: Hypothyroidism type: unspecified Qualified Code(s): E03.9 - Hypothyroidism , unspecified (6) Nicotine dependence with nicotine-induced disorder Priority: Secondary Status: Chronic Qualifiers: Nicotine product type: cigarettes Qualified Code(s): F17.219 - Nicotine dependence, cigarettes, with unspecified nicotine-induced disorders - Discharge Medications Prescriptions: Azithromycin [Zithromax] 250 mg PO DAILY #3 tablet PredniSONE 40 mg PO DAILY 12 Days Home Medications: Albuterol Sulfate [Albuterol Inhaler] 2 puff IH Q4HR PRN 04/13/15 [History] Cetirizine HCl [Zyrtec] 10 mg PO DAILY 04/13/15 [History] Levothyroxine [Synthroid] 88 mcg PO DAILY 04/13/15 [History] Ranitidine HCl [Zantac] 150 mg PO BID 04/13/15 [History] Budesonide/Formoterol 160/4.5 [Symbicort 160/4.5] 2 puff IH BIDR 08/23/15 [ History] Baclofen [Lioresal] 10 mg PO TIDWM 06/23/16 [History] Cholecalciferol (Vitamin D3) [Vitamin D3] 10,000 unit PO QWEEK 06/23/16 [History ] ClonazePAM [Klonopin] 2 mg PO BID PRN 06/23/16 [History] Diphenoxylate/Atropine [Lomotil 2.5 mg/0.025 mg] 1 tab PO Q6H PRN 06/23/16 [ History] Eszopiclone [Lunesta] 2 mg PO HS 08/06/16 [History] Promethazine [Phenergan] 25 mg PO Q6H 08/06/16 [History] Vilazodone HCl [Viibryd] 20 mg PO DAILY 08/06/16 [History] Azithromycin [Zithromax] 250 mg PO DAILY #3 tablet 08/08/16 [Rx] PredniSONE 40 mg PO DAILY 12 Days 08/08/16 [Rx] Allergies/Adverse Reactions: Allergies acetaminophen [From Vicodin] Allergy (Verified 03/17/16 01:24) Vomiting Amoxicillin Allergy (Verified 03/17/16 01:24) Rash hydrocodone [From Vicodin] Allergy (Verified 03/17/16 01:24) Vomiting Date of admission: 08/06/16 13:01 Primary care physician: CHERI NO - Patient Status Disposition: Home, Self-Care Condition: Good Overall status at discharge: patient is back to baseline - Discharge Instructions Follow Up With: NO,PCP [Primary Care Provider] - Additional Instructions: Follow-up with primary care physician within the next 2 weeks. Taper prednisone , complete 3 more days of azithromycin. Avoid baclofen and use it only as needed. Avoid narcotics. Quit smoking - Diet and Activity Activity: increase activity as tolerated Diet: low fat, low cholesterol Hospital course: Ms. Pham is a 45 year old female with a history of COPD not oxygen dependent, gastroesophageal reflux disease, hypothyroidism, bipolar disorder, who was brought into the ER with altered mental status. There was concern for possible ingestion of unknown number of illness prior to arrival to the ER. She was apparently in Police custody when this happened. She was very drowsy and responded to pain. The patient was protecting her airway and did not require intubation Her urine tox screen was negative. Patient had been admitted here in May of this year with a similar presentation. The next day she was able to answer questions appropriately. She denied suicidal ideation, and mentioned that she ingested baclofen due to back pain, did not intend to kill herself. During her hospitalization patient had a CT scan of the head that did not show any intracranial hemorrhage or other abnormality. The chest x-ray did not show any acute cardiopulmonary disease. She was started on prednisone and azithromycin due to a mild COPD exacerbation. The patient is ready to be discharged today. Time spent discussing smoking cessation with patient: 3 to 10 minutes - Time Spent with Patient Total time spent providing and/or coordinating discharge services: Greater than 30 minutes (40 min) - Constitutional Vitals: Temp Pulse Resp BP Pulse Ox 98.1 F 87 18 117/68 97 08/08/16 07:35 08/08/16 07:35 08/08/16 10:53 08/08/16 07:35 08/08/16 10:53 General appearance: Present: A&O X 3 - Head Head exam: Present: atraumatic, normocephalic - Eye Eye exam: Present: PERRL, conjuntiva pink, sclera anicteric Pupils: Present: PERRL - Neck Neck exam general surgery: Present: supple, trachea midline. Absent: lymphadenopathy - Respiratory Respiratory exam: Present: CTAB. Absent: accessory muscle use, rales, rhonchi, wheezes - Cardiovascular Cardiovascular exam: Present: RRR, +S1, +S2. Absent: diastolic murmur, gallop, rubs, systolic murmur - GI/Abdominal GI/Abdominal exam: Present: normal bowel sounds, soft, no peritoneal signs. Absent: distended, tenderness - Extremities Exam Extremities exam: Present: warm, radial pulses palpable and symetrical. Absent : calf tenderness, cyanotic, pedal edema - Neurological Exam Neurological exam: Present: CN II-XII intact, oriented X3, no focal deficits. Absent: pronater drift, facial droop, speech deficit - Skin Skin exam: Present: dry, intact - VTE Documentation of Mechanical Device: Graduated compression elastic hosiery
== END 2016-08-08 16:10 | disposition home or self-care (01) ==
LOC: EMEROO 11:01 → 2NENU 11:01
PROVIDERS: ADMIT Internal Medicine; ATTEND Internal Medicine

== ENCOUNTER 2017-03-27 08:04 | Observation (INO) ==
[2017-03-27] MEDS ORDERED: 0.9 % Sodium Chloride 1,000 ML IVC ONE (08:09)
--- NOTE | 2017-03-27 08:18 | Emergency Department Note ---
Disposition Clinical Impression: Altered mental status Disposition: Still a Patient Condition: Undetermined Altered Mental Status HPI - General Chief Complaint: ED Altered Mental Status Stated Complaint: AMS Time Seen by Provider: 03/27/17 08:09 Source: patient, family (patient's mom via telephone), EMS Mode of arrival: EMS Limitations: altered mental status Nursing Notes Reviewed: Yes Vital Signs Reviewed: Yes - History of Present Illness MD complaint: altered mental status (hallucinating), other (fever, right ear and head pain) Onset (ago): hour(s) (per patient's mom, she has had nightmares for several days - much worse last night - and this AM was c/o seeing spiders and rats crawling on her. Also c/o right ear and head pain this AM.) Timing confirmed by: family member Pain Severity: unable Consistency of Symptoms: constant Context: change in medication (New Psych med started recently), history of similar presentation (Per EMS patient has had a similar presentation once before. He states that they were called to transport her a while ago and she would not communicate with anyone and was perseverating about going home. He states that today she was more cooperative.), recent fever (Today 101.3 per EMS) , history psychiatric disease Associated symptoms: Reports: denies other symptoms Treatments prior to arrival: other (none) Limitations: ROS unobtainable due to patients medical condition Past Medical History - Past Medical History Source: old records reviewed, obtained from family Psychiatric history: Reports: bipolar - Social History Smoking Status: Unknown if ever smoked Alcohol use: Reports: unknown Drug use: Reports: unknown (per patient's mom, patient recently completed a drg rehab program and is "clean") Physical Exam - General Limitations: altered mental status General appearance: in distress (holding right side of head / ear and covering face; rocking and wimpering) - Head Head exam: atraumatic, normocephalic, normal inspection - Eye Eye exam: Present: normal appearance, PERRL. Absent: scleral icterus, conjunctival injection, periorbital swelling - ENT ENT exam: mucous membranes dry - Neck Neck exam: Present: normal inspection - Chest Chest inspection: Present: normal inspection - Respiratory Respiratory exam: Present: normal lung sounds bilaterally. Absent: respiratory distress, wheezes, stridor - Cardiovascular Cardiovascular exam: Present: regular rate, normal rhythm - Extremities Exam Extremities exam: Present: normal inspection, full ROM. Absent: pedal edema - Expanded Lower Extremity Exam Gait: not tested/not observed - Expanded Neurological Exam Speech: Present: fluid speech Coma Scale Eye Opening: Spontaneous Coma Scale Motor Response: Localizes to Pain Coma Scale Verbal Response: Oriented (difficult to assess as patient is not cooperative at this point. Per ems she was A&O x 3. She nods her head when asked if she knows where she is, however she will not answer many questions verbally) Coma Scale Total: 14 - Psychiatric Psychiatric exam: Present: agitated, anxious - Skin Skin exam: Present: warm, dry, intact, normal color Course Course Narrative: PAtient brought in by squad for evaluation of fever, ear/head pain and hallucinations. Per EMS and patient's mother, the patient has recently been prescribed a new psych med by her psychiatrist. Patient has been complaining of nightmares. Last night patient had an increased number of nightmares and this morning was hallucinating that spiders and rats were crawling on her. She also was complaining of severe right ear and head pain. These are the reasons that the patient's mother called EMS. PAtient is not able to provide a hx at this time. She initially was unable / unwilling to cooperate with even the triage process. Case was discussed with Dr. Johnson. He requests to take over this patient, but agrees with the orders already entered. Care of this patient is transferred to him at this time. TPA Checklist - LKW: 3-4.5 hrs Add. Warnings/Precautions Patient/family understanding: The patient/family members have been counseled and understood the risk, benefit , and alternatives of treatment.
[2017-03-27 08:41] LABS: Basophils # 0.1 K/mcL (0.0-0.2); Basophils % 1.5 %; Eosinophils # 0.3 K/mcL (0.0-0.6); Eosinophils % 3.8 %; Hematocrit 31.8 % (35.3-44.9); Hemoglobin 10.2 g/dL (11.5-15.4); Immature Granulocytes % 0.4 % (0-4); Lymphocytes # 2.3 K/mcL (0.6-4.6); Lymphocytes % 28.1 %; Mean Corpuscular HGB Conc 32.1 g/dL (31.6-35.5); Mean Corpuscular Hemoglobin 27.9 pg (28.0-33.3); Mean Corpuscular Volume 86.9 fL (83.0-100.0); Mean Platelet Volume 9.4 fL (9.4-12.4); Monocytes # 0.9 K/mcL (0.0-1.3); Monocytes % 11.1 %; Neutrophils # 4.5 K/mcL (1.6-8.9); Platelet Count 376 K/mcL (140-400); Red Blood Count 3.66 M/mcL (3.82-4.97); Red Cell Distribution Width 19.6 % (11.5-14.5); Segmented Neutrophils % 55.1 %
[2017-03-27 08:57] LABS: Alanine Aminotransferase 17 Units/L (0-55); Albumin/Globulin Ratio 0.9 (1.1-2.2); Alkaline Phosphatase 136 Units/L (38-126); Aspartate Amino Transferase 27 Units/L (5-34); BUN/Creatinine Ratio 13 (6-26); Bilirubin,Direct 0.2 mg/dL (0.0-0.5); Bilirubin,Indirect 0.2 mg/dL (0.0-1.2); Bilirubin,Total 0.4 mg/dL (0.2-1.2); Blood Urea Nitrogen 10 mg/dL (7-20); Calcium 8.2 mg/dL (8.6-10.8); Carbon Dioxide 23 mEq/L (19-29); Chloride 109 mEq/L (98-109); Globulin 3.3 g/dL (2.4-3.5); Glucose 102 mg/dL (70-99); Osmolality,Calculated 291 (280-300); Potassium 3.9 mEq/L (3.5-4.5); Sodium 141 mEq/L (136-145); Total Protein 6.3 g/dL (6.0-8.3); eGFR For African Americans > 60 (> 60); eGFR For Non-African Americans > 60 (> 60)
[2017-03-27 08:58] LABS: Ethanol < 10 mg/dL (0-10)
--- NOTE | 2017-03-27 09:17 | Emergency Department Note ---
START Narrative - START START: I examined this patient and my medical decision-making was reviewed with the emergency medicine resident. I agree with the documented findings, disposition and treatment plan as described except to the extent set forth below. Patient seen with emergency medicine resident Dr. Bucky Cano, Please see a copy of his note for details of the H&P, ED evaluation, management and disposition. I have independently evaluated the patient and confirmed appropriate portions of the history and physical exam. Briefly: A 46-year-old female by EMS for altered mental status. Initially she was unable to give any relevant history K krissy garcia eventually got information. Patient is on Lamictal and levothyroxine medications. She follows some commands but is otherwise at times decreased alertness. She has good reflexes. no blood type rigidity. no skin rash. no signs of iv track villarreal. her pupils are equal round reactive to light. patient getting x-rays and lab tests. disposition pending.
[2017-03-27 09:18] LABS: Thyroid Stimulating Hormone 3.972 mcIU/mL (0.350-4.840)
[2017-03-27] MEDS ORDERED: Ipratropium/Albuterol Neb 3 ML IH ONE (09:24)
--- NOTE | 2017-03-27 09:40 | Emergency Department Note ---
Disposition Clinical Impression: Hallucinations Depression Qualifiers: Depression Type: unspecified Qualified Code(s): F32.9 - Major depressive disorder, single episode, unspecified Disposition: Admitted As Inpatient Condition: Good Referrals: NONE,PCP [Primary Care Provider] - Forms: ED Satisfaction Letter General Adult HPI - General Chief complaint: ED Altered Mental Status Stated complaint: AMS Time Seen by Provider: 03/27/17 08:09 Source: patient, family (patient's mom via telephone), EMS Mode of arrival: EMS Limitations: altered mental status Nursing Notes Reviewed: Yes Vital Signs Reviewed: Yes - History of Present Illness HPI Narrative: 46-year-old female with a past medical history of significant psychiatric disease presents today due to reported altered mental status. She has been having nightmares and hallucinations over the past week. The patient initially would not give any past medical history but currently she is now speaking in full word sentences. Reportedly by EMS she had a fever of 101.3 but she has not had a fever for us. The patient denies having a fever at home. She has had intermittent cough. She is currently on Lamictal, Viibrol, klonopin, lunesta, and recently put on levothyroxine, baclofen and promethazine Pain Scale: 0 Consistency: constant Improves with: nothing Worsens with: nothing Associated symptoms: Reports: denies other symptoms Treatments Prior to Arrival: none - Related Data Allergies Allergy/AdvReac Type Severity Reaction Status Date / Time No Known Allergies Allergy Verified 03/27/17 08:33 All systems ED: reviewed and negative except as stated. ENT ED: Denies: throat pain Cardiovascular: Denies: chest pain Respiratory: Reports: cough Gastrointestinal: Denies: abdominal pain Genitourinary: Denies: dysuria Musculoskeletal: Denies: back pain Integumentary: Denies: rash Neurological: Denies: headache Past Medical History - Past Medical History Medical history: Reports: other Psychiatric history: Reports: bipolar - Social History Smoking Status: Unknown if ever smoked Smokeless Tobacco Status: No Alcohol use: Reports: unknown Drug use: Reports: unknown (per patient's mom, patient recently completed a [facility] rehab program and is "clean") Physical Exam - General Limitations: altered mental status General appearance: in distress (holding right side of head / ear and covering face; rocking and wimpering) - Head Head exam: atraumatic - Eye Eye exam: Present: normal appearance, PERRL - ENT ENT exam: normal exam, normal oropharynx - Neck Neck exam: Present: normal inspection - Chest Chest inspection: Present: normal inspection - Respiratory Respiratory exam: Present: other (Course lung sounds bilaterally) - Cardiovascular Cardiovascular exam: Present: regular rate, normal rhythm - Abdominal Exam Abdominal exam: Present: soft, Non-Tender - Extremities Exam Extremities exam: Present: normal inspection - Neurological Exam Neurological exam: Present: alert, oriented X3, CN II-XII intact. Absent: motor sensory deficit - Psychiatric Psychiatric exam: Present: flat affect, other (She will not make eye contact and is tearful. She has a very flat affect and answers in just a few words. She does admit to hallucinations) - Skin Skin exam: Present: warm, dry Course Course Narrative: Was able to get additional information from mother. The patient has been waking up complaining of hallucinations. She also stopped taking her Lamictal 2 days ago due to the hallucinations. She also is complaining of significant depression. I believe that the symptoms that she was exhibiting are due to her psychiatric illness. She is medically clear for 1A evaluation. Vital Signs Temperature 98.3 F 03/27/17 08:10 Pulse Rate 103 03/27/17 08:10 Respiratory Rate 18 03/27/17 08:10 Blood Pressure 130/79 03/27/17 08:10 O2 Sat by Pulse Oximetry 92 03/27/17 08:10 Temperature 98.3 F 03/27/17 08:10 Pulse Rate 97 03/27/17 12:24 Respiratory Rate 18 03/27/17 11:35 Blood Pressure 111/62 03/27/17 12:24 O2 Sat by Pulse Oximetry 96 03/27/17 12:24 Oxygen Delivery Oxygen Delivery Nasal Cannula Medical Decision Making - Medical Records Medical records reviewed: Yes I reviewed the patient's medical records. - Lab Data Lab results reviewed: Yes I reviewed the patient's lab results. Result diagrams: 03/27/17 08:31 03/27/17 08:31 Lab Results 03/27/17 03/27/17 03/27/17 Range/Units 08:31 08:31 08:31 WBC 8.2 (4.3-11.1) K/mcL RBC 3.66 L (3.82-4.97) M/mcL Hgb 10.2 L (11.5-15.4) g/dL Hct 31.8 L (35.3-44.9) % MCV 86.9 (83.0-100.0) fL MCH 27.9 L (28.0-33.3) pg MCHC 32.1 (31.6-35.5) g/dL RDW 19.6 H (11.5-14.5) % Plt Count 376 (140-400) K/mcL MPV 9.4 (9.4-12.4) fL Immature Gran % 0.4 (0-4) % Seg Neutrophils % 55.1 % Lymphocytes % 28.1 % Monocytes % 11.1 % Eosinophils % 3.8 % Basophils % 1.5 % Neutrophils # 4.5 (1.6-8.9) K/mcL Lymphocytes # 2.3 (0.6-4.6) K/mcL Monocytes # 0.9 (0.0-1.3) K/mcL Eosinophils # 0.3 (0.0-0.6) K/mcL Basophils # 0.1 (0.0-0.2) K/mcL Immature Plt Fraction 2.0 (1.1-6.1) % D-Dimer (0-500) ng/mLFEU Sodium 141 (136-145) mEq/L Potassium 3.9 (3.5-4.5) mEq/L Chloride 109 (98-109) mEq/L Carbon Dioxide 23 (19-29) mEq/L BUN 10 (7-20) mg/dL Creatinine 0.77 (0.57-1.11) mg/dL Est GFR ( Amer) > 60 (> 60) Est GFR (Non-Af Amer) > 60 (> 60) BUN/Creatinine Ratio 13 (6-26) Glucose 102 H (70-99) mg/dL Calculated Osmolality 291 (280-300) Lactic Acid 1.1 (0.5-2.2) mmol/L Calcium 8.2 L (8.6-10.8) mg/dL Total Bilirubin 0.4 (0.2-1.2) mg/dL Direct Bilirubin 0.2 (0.0-0.5) mg/dL Indirect Bilirubin 0.2 (0.0-1.2) mg/dL AST 27 (5-34) Units/L ALT 17 (0-55) Units/L Alkaline Phosphatase 136 H (38-126) Units/L Ammonia (18-72) mcmol/L Serum Total Protein 6.3 (6.0-8.3) g/dL Albumin 3.0 L (3.5-5.0) g/dL Globulin 3.3 (2.4-3.5) g/dL Albumin/Globulin Ratio 0.9 L (1.1-2.2) TSH 3.972 (0.350-4.840) mcIU/mL Urine Color (Yellow) Urine Clarity (Clear) Urine pH (5.0-8.0) pH Units Ur Specific Taberg (1.010-1.025) Urine Protein (Neg-Trace) mg/dL Urine Glucose (UA) (Normal) mg/dL Urine Ketones (Negative) mg/dL Urine Blood (Negative) Urine Nitrite (Negative) Urine Bilirubin (Negative) Urine Urobilinogen (Normal) mg/dL Ur Leukocyte Esterase (Negative) Urine Microscopic RBC (0-3) per hpf Urine Microscopic WBC (0-3) per hpf Ur Squamous Epith Cells (None-Few) per lpf Urine Bacteria (None-Few) per hpf Hyaline Casts (None-Few) per lpf Ur Culture Indicated? (NO) Urine Opiates Screen (Yhftln=039) ng/mL Ur Barbiturates Screen (Bhieqt=880) ng/mL Ur Phencyclidine Scrn (Cutoff=25) ng/mL Ur Amphetamines Screen (Slbxca=3854) ng/mL U Benzodiazepines Scrn (Cpkxtc=632) ng/mL Urine Cocaine Screen (Cutoff= 300) ng/mL U Marijuana (THC) Screen (Cutoff = 50) ng/mL Ethyl Alcohol < 10 (0-10) mg/dL 03/27/17 03/27/17 03/27/17 Range/Units 08:31 08:31 10:00 WBC (4.3-11.1) K/mcL RBC (3.82-4.97) M/mcL Hgb (11.5-15.4) g/dL Hct (35.3-44.9) % MCV (83.0-100.0) fL MCH (28.0-33.3) pg MCHC (31.6-35.5) g/dL RDW (11.5-14.5) % Plt Count (140-400) K/mcL MPV (9.4-12.4) fL Immature Gran % (0-4) % Seg Neutrophils % % Lymphocytes % % Monocytes % % Eosinophils % % Basophils % % Neutrophils # (1.6-8.9) K/mcL Lymphocytes # (0.6-4.6) K/mcL Monocytes # (0.0-1.3) K/mcL Eosinophils # (0.0-0.6) K/mcL Basophils # (0.0-0.2) K/mcL Immature Plt Fraction (1.1-6.1) % D-Dimer 311 (0-500) ng/mLFEU Sodium (136-145) mEq/L Potassium (3.5-4.5) mEq/L Chloride (98-109) mEq/L Carbon Dioxide (19-29) mEq/L BUN (7-20) mg/dL Creatinine (0.57-1.11) mg/dL Est GFR ( Amer) (> 60) Est GFR (Non-Af Amer) (> 60) BUN/Creatinine Ratio (6-26) Glucose (70-99) mg/dL Calculated Osmolality (280-300) Lactic Acid (0.5-2.2) mmol/L Calcium (8.6-10.8) mg/dL Total Bilirubin (0.2-1.2) mg/dL Direct Bilirubin (0.0-0.5) mg/dL Indirect Bilirubin (0.0-1.2) mg/dL AST (5-34) Units/L ALT (0-55) Units/L Alkaline Phosphatase (38-126) Units/L Ammonia 21 (18-72) mcmol/L Serum Total Protein (6.0-8.3) g/dL Albumin (3.5-5.0) g/dL Globulin (2.4-3.5) g/dL Albumin/Globulin Ratio (1.1-2.2) TSH (0.350-4.840) mcIU/mL Urine Color Yellow (Yellow) Urine Clarity Clear (Clear) Urine pH 6.0 (5.0-8.0) pH Units Ur Specific Taberg 1.013 (1.010-1.025) Urine Protein Negative (Neg-Trace) mg/dL Urine Glucose (UA) Normal (Normal) mg/dL Urine Ketones Negative (Negative) mg/dL Urine Blood Small H (Negative) Urine Nitrite Negative (Negative) Urine Bilirubin Negative (Negative) Urine Urobilinogen Normal (Normal) mg/dL Ur Leukocyte Esterase Negative (Negative) Urine Microscopic RBC 15-30 H (0-3) per hpf Urine Microscopic WBC 0-3 (0-3) per hpf Ur Squamous Epith Cells Many H (None-Few) per lpf Urine Bacteria None Seen (None-Few) per hpf Hyaline Casts None Seen (None-Few) per lpf Ur Culture Indicated? NO (NO) Urine Opiates Screen (Ddtsln=020) ng/mL Ur Barbiturates Screen (Kpltww=032) ng/mL Ur Phencyclidine Scrn (Cutoff=25) ng/mL Ur Amphetamines Screen (Togcqz=0246) ng/mL U Benzodiazepines Scrn (Hxyubh=062) ng/mL Urine Cocaine Screen (Cutoff= 300) ng/mL U Marijuana (THC) Screen (Cutoff = 50) ng/mL Ethyl Alcohol (0-10) mg/dL 03/27/17 Range/Units 10:00 WBC (4.3-11.1) K/mcL RBC (3.82-4.97) M/mcL Hgb (11.5-15.4) g/dL Hct (35.3-44.9) % MCV (83.0-100.0) fL MCH (28.0-33.3) pg MCHC (31.6-35.5) g/dL RDW (11.5-14.5) % Plt Count (140-400) K/mcL MPV (9.4-12.4) fL Immature Gran % (0-4) % Seg Neutrophils % % Lymphocytes % % Monocytes % % Eosinophils % % Basophils % % Neutrophils # (1.6-8.9) K/mcL Lymphocytes # (0.6-4.6) K/mcL Monocytes # (0.0-1.3) K/mcL Eosinophils # (0.0-0.6) K/mcL Basophils # (0.0-0.2) K/mcL Immature Plt Fraction (1.1-6.1) % D-Dimer (0-500) ng/mLFEU Sodium (136-145) mEq/L Potassium (3.5-4.5) mEq/L Chloride (98-109) mEq/L Carbon Dioxide (19-29) mEq/L BUN (7-20) mg/dL Creatinine (0.57-1.11) mg/dL Est GFR ( Amer) (> 60) Est GFR (Non-Af Amer) (> 60) BUN/Creatinine Ratio (6-26) Glucose (70-99) mg/dL Calculated Osmolality (280-300) Lactic Acid (0.5-2.2) mmol/L Calcium (8.6-10.8) mg/dL Total Bilirubin (0.2-1.2) mg/dL Direct Bilirubin (0.0-0.5) mg/dL Indirect Bilirubin (0.0-1.2) mg/dL AST (5-34) Units/L ALT (0-55) Units/L Alkaline Phosphatase (38-126) Units/L Ammonia (18-72) mcmol/L Serum Total Protein (6.0-8.3) g/dL Albumin (3.5-5.0) g/dL Globulin (2.4-3.5) g/dL Albumin/Globulin Ratio (1.1-2.2) TSH (0.350-4.840) mcIU/mL Urine Color (Yellow) Urine Clarity (Clear) Urine pH (5.0-8.0) pH Units Ur Specific Taberg (1.010-1.025) Urine Protein (Neg-Trace) mg/dL Urine Glucose (UA) (Normal) mg/dL Urine Ketones (Negative) mg/dL Urine Blood (Negative) Urine Nitrite (Negative) Urine Bilirubin (Negative) Urine Urobilinogen (Normal) mg/dL Ur Leukocyte Esterase (Negative) Urine Microscopic RBC (0-3) per hpf Urine Microscopic WBC (0-3) per hpf Ur Squamous Epith Cells (None-Few) per lpf Urine Bacteria (None-Few) per hpf Hyaline Casts (None-Few) per lpf Ur Culture Indicated? (NO) Urine Opiates Screen Negative (Etknyt=674) ng/mL Ur Barbiturates Screen Negative (Quiycj=793) ng/mL Ur Phencyclidine Scrn Negative (Cutoff=25) ng/mL Ur Amphetamines Screen Negative (Nxdgji=1887) ng/mL U Benzodiazepines Scrn Negative (Bkqblw=951) ng/mL Urine Cocaine Screen Negative (Cutoff= 300) ng/mL U Marijuana (THC) Screen Negative (Cutoff = 50) ng/mL Ethyl Alcohol (0-10) mg/dL - Radiology Data Radiology results reviewed: Yes I reviewed the patient's radiology results. - EKG Data EKG #1 EKG attestation: Yes I reviewed and interpreted this EKG. EKG shows normal: sinus rhythm Rate: tachycardia Rhythm: NSR [place]/QRS: normal Interpretation: no acute changes
[2017-03-27 10:12] LABS: Bilirubin,Urine Negative (Negative); Blood,Urine Small (Negative); Clarity,Urine Clear (Clear); Color,Urine Yellow (Yellow); Glucose,Urine (UA) Normal (Normal); Ketones,Urine Negative (Negative); Leukocyte Esterase,Urine Negative (Negative); Nitrite,Urine Negative (Negative); Protein,Urine Negative (Neg-Trace); Specific Gravity,Urine 1.013 (1.010-1.025); Urobilinogen,Urine Normal (Normal)
[2017-03-27 10:14] LABS: Bacteria,Urine None Seen per hpf (None-Few); Hyaline Casts,Urine None Seen per lpf (None-Few); RBC,Urine 15-30 per hpf (0-3); Squamous Epithelial Cell,Urine Many per lpf (None-Few); WBC,Urine 0-3 per hpf (0-3)
[2017-03-27 10:31] LABS: Amphetamine Screen,Urine Negative ng/mL (Cutoff=1000); Barbiturate Screen,Urine Negative ng/mL (Cutoff=200); Benzodiazepines Screen,Urine Negative ng/mL (Cutoff=200); Cannabinoid Screen,Urine Negative ng/mL (Cutoff = 50); Cocaine Screen,Urine Negative ng/mL (Cutoff= 300); Opiate Screen,Urine Negative ng/mL (Cutoff=300); Phencyclidine Screen,Urine Negative ng/mL (Cutoff=25)
[2017-03-27] MEDS ORDERED: Haloperidol Lactate 5 MG/ML VIAL IM PRN (14:38)
[2017-03-27] MEDS ORDERED: Mag Hydrox/Al Hydrox/Simeth 30 ML UDC PO PRN (14:38)
[2017-03-27] MEDS ORDERED: Acetaminophen 325 MG TABLET PO PRN (14:38)
[2017-03-27] MEDS ORDERED: traZODone 50 MG TABLET PO PRN (14:38)
[2017-03-27] MEDS ORDERED: *HR* LORazepam 1 MG TABLET PO PRN (14:38)
[2017-03-27] MEDS ORDERED: *HR* LORazepam 2 MG/ML VIAL IM PRN (14:38)
[2017-03-27] MEDS ORDERED: MOM Conc 10 ML UD.LIQ PO PRN (14:38)
[2017-03-27] MEDS ORDERED: hydrOXYzine pamoate 25 MG CAPSULE PO PRN (14:38)
[2017-03-27 22:47] VITALS: BP 105/68
[2017-03-28 01:45] LABS: Basophils # 0.1 K/mcL (0.0-0.2); Basophils % 0.9 %; Eosinophils # 0.2 K/mcL (0.0-0.6); Hematocrit 29.4 % (35.3-44.9); Hemoglobin 9.5 g/dL (11.5-15.4); Immature Granulocytes % 0.2 % (0-4); Lymphocytes # 3.3 K/mcL (0.6-4.6); Lymphocytes % 41.5 %; Mean Corpuscular HGB Conc 32.3 g/dL (31.6-35.5); Mean Corpuscular Hemoglobin 28.4 pg (28.0-33.3); Mean Platelet Volume 9.3 fL (9.4-12.4); Monocytes % 12.6 %; Neutrophils # 3.4 K/mcL (1.6-8.9); Platelet Count 321 K/mcL (140-400); Red Blood Count 3.34 M/mcL (3.82-4.97); Red Cell Distribution Width 19.5 % (11.5-14.5); Segmented Neutrophils % 41.8 %
[2017-03-28 01:47] LABS: Bilirubin,Urine Small (Negative); Blood,Urine Negative (Negative); Color,Urine Yellow (Yellow); Glucose,Urine (UA) Normal (Normal); Ketones,Urine Negative (Negative); Leukocyte Esterase,Urine Negative (Negative); Nitrite,Urine Negative (Negative); Protein,Urine Negative (Neg-Trace); Specific Gravity,Urine 1.021 (1.010-1.025); Urobilinogen,Urine Normal (Normal)
[2017-03-28 01:48] LABS: Bacteria,Urine None Seen per hpf (None-Few); Hyaline Casts,Urine None Seen per lpf (None-Few); Squamous Epithelial Cell,Urine Many per lpf (None-Few)
[2017-03-28 01:50] LABS: Clarity,Urine Slightly Hazy (Clear)
== END 2017-03-28 02:44 | disposition other institution (70) ==
LOC: EMEROO 08:04 → INTOOBSV 14:00 → MERGE 14:00 → 1ANU 14:00
PROVIDERS: ADMIT Psychiatry & Neurology Psychiatry; ATTEND Psychiatry & Neurology Psychiatry

== ENCOUNTER 2017-03-28 01:57 | Observation (INO) ==
[2017-03-28] MEDS ORDERED: Naloxone 0.4 MG/ML INJ IVP PRN (02:08)
[2017-03-28] MEDS ORDERED: Acetaminophen 325 MG TABLET PO PRN (02:08)
[2017-03-28] MEDS ORDERED: Ondansetron 4 MG/2 ML VIAL IVP PRN (02:08)
[2017-03-28] MEDS ORDERED: 0.9 % Sodium Chloride w KCl 20 MEQ/1,000 ML MLS IVC SCH (02:15)
--- NOTE | 2017-03-28 02:29 | Internal Med History&Physical ---
Date of Encounter: 03/28/17 Time of Encounter: 02:22 Assessment and Plan (1) Acute encephalopathy Current visit: Yes Status: Acute 1. I suspect viral and/or other infectious etiology. 2. Will proceed with work up including blood cultures, urine cultures, respiratory infection panel, and possibly LP. 3. Will order MRI brain. 4. Patient med list (not updated or verified) lists prednisone as a chronic home medication. Patient could be adrenally insufficient. I will place her on IV stress dose steroids until this could be confirmed. 5. Will order sitter and consult psychiatry to see her regarding any need for psychiatric treatment. 6. Will hold all mind altering meds. (2) Sepsis Current visit: Yes Status: Acute 1. Patient is hemodynamically stable and I do not find a source. 2. Will start maintenance IVF, IV antibiotics, IV acyclovir as noted above, and trend lactate levels. 3. Will place on telemetry. 4. Will order respiratory infection panel. 5. If patient develops any hemodynamic instability, will fluid bolus accordingly. 6. Blood, urine, and CSF cultures as noted above. Qualifiers: Sepsis type: sepsis due to unspecified organism Qualified Code(s): A41.9 - Sepsis, unspecified organism (3) DVT prophylaxis Current visit: Yes Status: Acute 1. Heparin SQ. Internal Medicine - H&P: HPI Chief complaint: fever, altered mental status Admitted From: Intrahospital Transfer Plans for Post Hospital Care: Transfer Psych Facility History of present illness: Ms. Pham is a 46 year old female was admitted to the inpatient psychiatry unit [facility] for altered mental status and hallucinations. I was called by the inpatient psychiatry nurse to come and see patient for concerns of fever, dehydration, and tachycardia. Patient's psychiatrist requested a hospitalist consult. I reviewed the ER notes and workup in the ER. I then went to see patient. Upon my assessment of the patient, she appears a little dehydrated but otherwise hemodynamically stable. She is warm to touch and appears to be febrile. She admits to having had a dry cough the last several days. She denies any prior psychiatric history prior to today. She states she lives at home with her mother, father, and her daughter. She states over the last few days she was having some hallucinations. Furthermore, she has had some periods of confusion and disorientation according to the inpatient psychiatry nurse. Patient does have some periods of his disorientation and confusion as I am talking to her. However, for the most part, she is alert and oriented. She has had fevers at home and fevers on the psychiatry unit. She denies any vomiting or diarrhea. She had some vague headaches but denies any neck pain or back pain. She denies abdominal pain, dysuria, vomiting, or diarrhea. Given the fevers, altered mental status, and no prior history of psychiatric illness, I recommend patient be admitted to the medicine service for further workup and care. There have been no reports of suicidal ideations, but given her psychiatric issues, I will request a sitter and psychiatry consult. Nonetheless , I recommend medical workup including blood cultures, urine cultures, lumbar puncture and MRI of the brain. Patient denies any history of oral cold sores, but I am concerned about Herpes encephalitis. Therefore, I will treat her empirically with IV acyclovir in addition to IV antibiotics while pursuing the workup. Past Med Surg Social Fam HX - Past Medical History Source: patient, old records reviewed Medical history: arthritis, COPD, GERD, thyroid disease, syncope Psychiatric history: no psych history (no prior psychiatric history per patietn and nurse) - Past Surgical History Surgical History: cholecystectomy, orthopedic, other, other - Social History Smoking Status: Current some day smoker Smokeless Tobacco Status: No Alcohol use: rarely Drug use: marijuana Current living situation: Home, With Family Activity Level: Independent ambulation Recent Out of Country Travel Within the Last 8 Weeks: No - Family History Mother Family Member Ethnicity: Non- Living Status: Still Living Hx Family Cardiac Disorders: Yes (Tachycardia) Hx Family Respiratory Disorders: Yes (COPD) Hx Family Cancer: No Hx Family GI Disorders: No Hx Family Endocrine Disorder: No Hx Family Neuromuscular Disorders: No Hx Family Neurologic Disorders: No Hx Family HEENT Disorders: No Hx Family Autoimmune Disorders: No Internal Medicine - H&P: Meds Albuterol Sulfate [Albuterol Inhaler] 2 puff IH Q4HR PRN 04/13/15 [History] Cetirizine HCl [Zyrtec] 10 mg PO DAILY 04/13/15 [History] Levothyroxine [Synthroid] 88 mcg PO DAILY 04/13/15 [History] Ranitidine HCl [Zantac] 150 mg PO BID 04/13/15 [History] Budesonide/Formoterol 160/4.5 [Symbicort 160/4.5] 2 puff IH BIDR 08/23/15 [ History] Baclofen [Lioresal] 10 mg PO TIDWM 06/23/16 [History] Cholecalciferol (Vitamin D3) [Vitamin D3] 10,000 unit PO QWEEK 06/23/16 [History ] Diphenoxylate/Atropine [Lomotil 2.5 mg/0.025 mg] 1 tab PO Q6H PRN 06/23/16 [ History] clonazePAM [Klonopin] 2 mg PO BID PRN 06/23/16 [History] Eszopiclone [Lunesta] 2 mg PO HS 08/06/16 [History] Promethazine [Phenergan] 25 mg PO Q6H 08/06/16 [History] Vilazodone HCl [Viibryd] 20 mg PO DAILY 08/06/16 [History] Azithromycin [Zithromax] 250 mg PO DAILY #3 tablet 08/08/16 [Rx] predniSONE [PredniSONE] 40 mg PO DAILY 12 Days tablet 08/08/16 [Rx] 3 Allergy/AdvReac Type Severity Reaction Status Date / Time acetaminophen [From Vicodin] Allergy Vomiting Verified 03/17/16 01:24 Amoxicillin Allergy Rash Verified 03/17/16 01:24 hydrocodone [From Vicodin] Allergy Vomiting Verified 03/17/16 01:24 - Constitutional Constitutional: chills, fever(s), no night sweats - EENT Eyes: no blurry vision, no change in vision Ears: no ear pain, no tinnitus Nose, mouth and throat: no nasal discharge, no sinus pressure, no sore throat - Cardiovascular Cardiovascular ROS IM: no chest pain, no dyspnea, no edema, no syncope - Respiratory Respiratory: cough, wheezing, no hemoptysis, no chest congestion, no excessive phlegm production, no change in phlegm color, no pain with cough - Gastrointestinal Gastrointestinal: no abdominal pain, no diarrhea, no nausea, no vomiting - Genitourinary Genitourinary: no dysuria, no flank pain, no hematuria - Musculoskeletal Musculoskeletal ROS IM: no back pain - Integumentary Integumentary IM: no rash, no jaundice - Neurological Neurological ROS: confusion, headache(s), no convulsions, no dizziness, no focal weakness, no vertigo - Psychiatric Psychiatric: behavioral changes, difficulty concentrating, hallucinations, no suicidal ideation - Endocrine Endocrine IM: no polydipsia, no polyuria - Allergic/Immunologic Allergic/Immunologic: no GI upset with certain foods - Constitutional General appearance: Present: cooperative, A&O X 2, mild distress, pleasant. Absent: answers questions appropriately (for the most part, but not always) - Head Head exam: Present: atraumatic, normal inspection - Expanded Head Exam Head exam expanded: Absent: abrasion, contusion, general tenderness - Eye Eye exam: Present: EOMI, normal appearance, PERRL. Absent: scleral icterus Pupils: Present: normal accommodation - ENT ENT exam: Present: mucous membranes dry, normal exam - Neck Neck exam general surgery: Present: full ROM, supple, trachea midline. Absent: lymphadenopathy, tenderness, nuchal rigidity - Respiratory Respiratory exam: Present: prolonged expiratory phase, rhonchi, wheezes. Absent : accessory muscle use, chest wall tenderness, CTAB, rales, respiratory distress - Cardiovascular Cardiovascular exam: Present: RRR, +S1, +S2. Absent: diastolic murmur, systolic murmur - GI/Abdominal GI/Abdominal exam: Present: normal bowel sounds, soft. Absent: hepatomegaly, mass, splenomegaly, tenderness - Extremities Exam Extremities exam: Present: full ROM, normal capillary refill, warm, radial pulses palpable and symmetrical. Absent: calf tenderness, tenderness - Back Exam Back exam: Present: normal inspection. Absent: CVA tenderness (L), CVA tenderness (R) - Neurological Exam Neurological exam: Present: alert, CN II-XII intact, no focal deficits, strengths equal and symetr throughout. Absent: oriented X3, facial droop, speech deficit Additional comments: negative Kernig or Brudzinski sign - Psychiatric Psychiatric exam: Present: flat affect Additional comments: occasionally confused at times - Skin Skin exam: Present: dry, warm. Absent: rash Internal Med - H&P Results - Labs Labs: I reviewed labs from one day and they include the following: WBC 8.0 Hemoglobin 9.5 Hematocrit 29.4 Platelet count 321 Sodium 141 Potassium 3.9 Chloride 109 Carbon dioxide 23 BUN 10 Creatinine 0.77 Urinalysis unremarkable Urine drug screen negative
[2017-03-28] MEDS ORDERED: VANCOMYCIN IVPB SCH (03:00)
[2017-03-28] MEDS ORDERED: WATER IVPB SCH (03:00)
[2017-03-28] MEDS ORDERED: D5 IVPB SCH (03:00)
[2017-03-28 03:18] LABS: Basophils # 0.1 K/mcL (0.0-0.2); Eosinophils # 0.2 K/mcL (0.0-0.6); Eosinophils % 3.5 %; Hematocrit 29.4 % (35.3-44.9); Hemoglobin 9.4 g/dL (11.5-15.4); Immature Granulocytes % 0.3 % (0-4); Lymphocytes # 2.8 K/mcL (0.6-4.6); Lymphocytes % 40.8 %; Mean Corpuscular Hemoglobin 28.1 pg (28.0-33.3); Mean Corpuscular Volume 87.8 fL (83.0-100.0); Mean Platelet Volume 9.3 fL (9.4-12.4); Monocytes # 0.9 K/mcL (0.0-1.3); Monocytes % 12.3 %; Neutrophils # 2.9 K/mcL (1.6-8.9); Platelet Count 314 K/mcL (140-400); Red Blood Count 3.35 M/mcL (3.82-4.97); Red Cell Distribution Width 19.7 % (11.5-14.5); Segmented Neutrophils % 42.1 %
[2017-03-28 03:23] LABS: INR 1.3; Prothrombin Time 14.1 Seconds (9.4-12.1)
[2017-03-28 03:26] LABS: Activated Partial Thrombo Time 30.8 Seconds (26.0-36.0)
[2017-03-28 03:35] LABS: Alanine Aminotransferase 14 Units/L (0-55); Albumin 2.7 g/dL (3.5-5.0); Albumin/Globulin Ratio 0.9 (1.1-2.2); Alkaline Phosphatase 121 Units/L (38-126); Aspartate Amino Transferase 24 Units/L (5-34); BUN/Creatinine Ratio 9 (6-26); Bilirubin,Total 0.4 mg/dL (0.2-1.2); Blood Urea Nitrogen 6 mg/dL (7-20); Carbon Dioxide 24 mEq/L (19-29); Chloride 109 mEq/L (98-109); Glucose 102 mg/dL (70-99); Magnesium 1.7 mg/dL (1.6-2.6); Osmolality,Calculated 292 (280-300); Potassium 3.4 mEq/L (3.5-4.5); Sodium 142 mEq/L (136-145); Total Protein 5.7 g/dL (6.0-8.3); eGFR For African Americans > 60 (> 60); eGFR For Non-African Americans > 60 (> 60)
[2017-03-28] MEDS ORDERED: Vancomycin 1,500 MG in D5% in Water 250 ML IVPB ONE (04:00)
[2017-03-28 04:43] LABS: Adenovirus Not Detected (Not Detect); Bordetella Pertussis Not Detected (Not Detect); Chlamydophila pneumoniae Not Detected (Not Detect); Coronavirus 229E Not Detected (Not Detect); Coronavirus HKU1 Not Detected (Not Detect); Coronavirus NL63 Not Detected (Not Detect); Coronavirus OC43 Not Detected (Not Detect); Human Metapneumovirus Not Detected (Not Detect); Human Rhinovirus/Enterovirus Not Detected (Not Detect); Influenza A Subtype 2009 H1 Not Detected (Not Detect); Influenza A Untypeable Not Detected (Not Detect); Influenza B Not Detected (Not Detect); Mycoplasma pneumoniae Not Detected (Not Detect); Parainfluenza Virus 1 Not Detected (Not Detect); Parainfluenza Virus 2 Not Detected (Not Detect); Parainfluenza Virus 3 Not Detected (Not Detect); Parainfluenza Virus 4 Not Detected (Not Detect); Respiratory Syncytial Virus Not Detected (Not Detect)
[2017-03-28] MEDS ORDERED: cefTRIAXone 2,000 MG in Water for inj. (sterile) 20 ML IVP SCH (06:00)
[2017-03-28] MEDS ORDERED: *HR* Heparin 5,000 UNIT/ML VIAL SQ SCH (06:00)
[2017-03-28] MEDS ORDERED: Hydrocortisone Sodium Succ 100 MG/2 ML VIAL IVP SCH (08:00)
[2017-03-28] MEDS ORDERED: Acyclovir 800 MG in D5% in Water 250 ML IVPB SCH (08:00)
--- NOTE | 2017-03-28 08:59 | Event Note ---
Date of Encounter: 03/28/17 Time of Encounter: 08:20 Patient is back to baseline this morning. No fever. Does have cough. Suspect she has bronchitis. No hallucinations. She reports that she started to have hallucinations after she was started on a new psychiatric medication 2 weeks back. No new episode of fever. No signs of meningitis or encephalitis at this time. No need for any further neurologic work up. CT head negative. Will consult psychiatry to re-eval patient for psych hosp admission. No suicidal ideation. Complete 5 day course of oral levofloxacin for bronchitis.
[2017-03-28] MEDS ORDERED: levoFLOXacin 500 MG TABLET PO SCH (09:00)
[2017-03-28] MEDS ORDERED: Ipratropium/Albuterol Neb 3 ML IH PRN (09:00)
[2017-03-28] MEDS ORDERED: Baclofen 10 MG TABLET PO SCH (12:00)
--- NOTE | 2017-03-28 14:55 | Discharge Summary ---
Date of Encounter: 03/28/17 Time of Encounter: 14:50 - Discharge Diagnosis (1) Acute encephalopathy Priority: Primary Status: Resolved Comments: Acute metabolic encephalopathy (2) Bipolar 2 disorder Priority: Secondary Status: Chronic (3) COPD (chronic obstructive pulmonary disease) Priority: Secondary Status: Acute Qualifiers: COPD type: chronic bronchitis Chronic bronchitis type: mucopurulent Qualified Code(s): J41.1 - Mucopurulent chronic bronchitis (4) Sepsis Priority: Secondary Status: Ruled-out Qualifiers: Sepsis type: sepsis due to unspecified organism Qualified Code(s): A41.9 - Sepsis, unspecified organism - Discharge Medications Prescriptions: levoFLOXacin [Levaquin] 500 mg PO DAILY #5 tablet Home Medications: Levothyroxine [Synthroid] 88 mcg PO DAILY 04/13/15 [History] Ranitidine HCl [Zantac] 150 mg PO BID 04/13/15 [History] Baclofen [Lioresal] 10 mg PO TIDWM 06/23/16 [History] clonazePAM [Klonopin] 2 mg PO BID PRN 06/23/16 [History] Promethazine [Phenergan] 25 mg PO Q6H 08/06/16 [History] Acetylcysteine [S-Qgdkuz-g-Cysteine] 600 mg PO TID 03/28/17 [History] Budesonide/Formoterol 160/4.5 [Symbicort 160/4.5] 2 puff IH BIDR 03/28/17 [ History] Cetirizine HCl [Zyrtec] 10 mg PO DAILY 03/28/17 [History] Cholecalciferol (Vitamin D3) [Vitamin D3] 10,000 unit PO QWEEK 03/28/17 [History ] Eszopiclone [Lunesta] 3 mg PO HS 03/28/17 [History] Furosemide [Lasix] 20 mg PO DAILY 03/28/17 [History] Ipratropium/Albuterol Neb [Duoneb] 3 ml IH Q6HR PRN 03/28/17 [History] Vilazodone HCl [Viibryd] 40 mg PO DAILY 03/28/17 [History] lamoTRIgine [Lamictal] 25 mg PO DAILY 03/28/17 [History] levoFLOXacin [Levaquin] 500 mg PO DAILY #5 tablet 03/28/17 [Rx] Allergies/Adverse Reactions: 3 Allergy/AdvReac Type Severity Reaction Status Date / Time acetaminophen [From Vicodin] Allergy Vomiting Verified 03/17/16 01:24 Amoxicillin Allergy Rash Verified 03/17/16 01:24 hydrocodone [From Vicodin] Allergy Vomiting Verified 03/17/16 01:24 Procedures/tests Complete & Pending: Procedures Performed prior 72 hours Category Date Time Status ECG 12 lead ECG [ECG] AM 0600 Y 03/28/17 06:00 Completed Date of admission: 03/28/17 02:00 Primary care physician: Kg Herrera Consults: 03/28/17 08:41 Consult to Psychiatry [CONS] Routine Consulting Provider: Psychiatry Aniya Reason for Consult: AMS, hallucinations Call Completed: Yes Discharging clinician: Berenice Engel Anticipated date of discharge: 03/28/17 - Patient Status Disposition: Home, Self-Care Condition: Good Functional capacity at discharge: independent ambulation Overall status at discharge: patient is back to baseline - Discharge Instructions Instructions: Levofloxacin (By mouth) Follow Up With: Krystal Jones [Outside] - 03/31/17 8:30 am (The above appointment is with Teri Crouch for outpatient psychiatric assessment and medication management services.) Kg Herrera, PAC [Primary Care Provider] - 04/30/17 10:00 am - Diet and Activity Activity: increase activity as tolerated Diet: advance to your usual diet Hospital course: Ms. Pham is a 46 year old female patient with a history of bipolar disorder, depression and anxiety who presented to the ER with complaints of hallucinations. She had initially been noted to psychiatric unit for further evaluation. However she was found to have an episode of fever and so hospitalist was called for evaluation. Given that she is also having hallucinations, meningitis or encephalitis was suspected. Patient underwent CT scan of the head which did not show any acute process. Patient was started on treatment for possible encephalitis/meningitis with Rocephin, vancomycin and acyclovir. However her symptoms have completely resolved by the time I saw her this morning. Patient attributes her hallucinations to recent change in her medications. Psychiatry was then consulted and they did did not feel that the patient needed inpatient psychiatric hospitalization. As such she will be discharged home. Patient does have underlying COPD and was having cough. She may have acute bronchitis which may have caused her to have fever. She has not had any further episodes of fever. She is now awake alert and oriented. She is no longer hallucinating. She will be discharged home today on and will complete a short antibiotic course with levofloxacin for bronchitis. She will follow up with her psychiatrist early next week for the management and to readdress her medications. - Time Spent with Patient Total time spent providing and/or coordinating discharge services: Less than 30 minutes (20 min) - Constitutional Vitals: Temp Pulse Resp BP Pulse Ox 97.7 F 90 16 151/87 94 03/28/17 12:40 03/28/17 12:40 03/28/17 12:40 03/28/17 12:40 03/28/17 12:40 General appearance: Present: cooperative, A&O X 3, pleasant, no acute distress, answers questions appropriately - Respiratory Respiratory exam: Present: CTAB. Absent: accessory muscle use, rales, rhonchi, wheezes - Cardiovascular Cardiovascular exam: Present: RRR, +S1, +S2. Absent: diastolic murmur, gallop, rubs, systolic murmur - GI/Abdominal GI/Abdominal exam: Present: normal bowel sounds, soft, no peritoneal signs. Absent: distended, tenderness - Extremities Exam Extremities exam: Present: warm, radial pulses palpable and symmetrical. Absent : calf tenderness, cyanotic, pedal edema
[2017-03-28] MEDS ORDERED: Aminoglycoside Consult 1 EACH MC ONE (14:59)
[2017-03-28] MEDS ORDERED: *HR* Acetylcysteine 20% 600 MG/3 ML ORAL SYRINGE PO SCH (15:00)
[2017-03-28 15:31] VITALS: BP 142/83
--- NOTE | 2017-03-28 15:54 | Psychiatry Progress Note ---
Date of Encounter: 03/28/17 Time of Encounter: 15:15 Subjective Interval history: 46 years old female admitted initially to psychiatry for evaluation of hallucinations, medical consult was ordered to evaluate dehydration and possible sepsis, patient was transferred to medicine for treatment of encephalopathy and sepsis. Psychiatric consultation requested to evaluate patient and recommendation. Patient is currently medically stable, on interviewer she is alert and oriented speeches clear and coherent no evidence of any psychosis or hallucination or delusions no evidence of any suicidal ideation. Patient stated that she is followed as an outpatient at the [facility] and scheduled for an appointment on Friday. From psychiatric standpoint patient is stable and can be discharged if medically clear. Objective: Exam Patient orientation: Yes Person, Yes Time, Yes Place Level of alertness: Alert Patient appearance: Appropriate, Well Groomed Behavior: calm, cooperative Psychomotor activity: Normal Eye contact: Maintains Eye Contact Mood description: Euthymic/stable Affect description: congruent with mood, full range Speech pattern: Normal rate, Normal rhythm, Normal tone Speech volume: Normal Thought process: Linear, Goal Oriented Thought content: No Suicidal ideation, No Homicidal ideation, No Overt delusions Perceptual disturbances: No Auditory hallucinations, No Visual hallucinations Judgment: Fair Insight: Partial Results - Vital Signs Vital Signs: Temp Pulse Resp BP Pulse Ox 99 F 98 16 142/83 94 03/28/17 15:29 03/28/17 15:29 03/28/17 15:29 03/28/17 15:29 03/28/17 15:29 - Labs Labs: Laboratory Results - last 24 hr 03/28/17 03/28/17 03/28/17 03:02 03:02 03:02 WBC 6.9 RBC 3.35 L Hgb 9.4 L Hct 29.4 L MCV 87.8 MCH 28.1 MCHC 32.0 RDW 19.7 H Plt Count 314 MPV 9.3 L Immature Gran % 0.3 Seg Neutrophils % 42.1 Lymphocytes % 40.8 Monocytes % 12.3 Eosinophils % 3.5 Basophils % 1.0 Neutrophils # 2.9 Lymphocytes # 2.8 Monocytes # 0.9 Eosinophils # 0.2 Basophils # 0.1 PT 14.1 H INR 1.3 APTT 30.8 Sodium Potassium Chloride Carbon Dioxide BUN Creatinine Est GFR ( Amer) Est GFR (Non-Af Amer) BUN/Creatinine Ratio Glucose Calculated Osmolality Lactic Acid 0.5 Calcium Magnesium Total Bilirubin AST ALT Alkaline Phosphatase Serum Total Protein Albumin Globulin Albumin/Globulin Ratio Chlamy pneumoniae PCR Adenovirus (PCR) B. pertussis DNA (PCR) Coronavirus OC43 (PCR) Coronavirus HKU1 (PCR) Coronavirus 229E (PCR) Coronavirus NL63 (PCR) Human Metapneumovir PCR Influenza A (H1) PCR Influ A (H1N1/) PCR Influenza A (H3) PCR Influenza A Untype (PCR) Influenza Type B (PCR) M.pneumoniae DNA (PCR) Parainfluenza 1 (PCR) Parainfluenza 2 (PCR) Parainfluenza 3 (PCR) Parainfluenza 4 (PCR) RSV (PCR) Entero/Rhino (PCR) 03/28/17 03/28/17 03/28/17 03:02 03:21 05:55 WBC RBC Hgb Hct MCV MCH MCHC RDW Plt Count MPV Immature Gran % Seg Neutrophils % Lymphocytes % Monocytes % Eosinophils % Basophils % Neutrophils # Lymphocytes # Monocytes # Eosinophils # Basophils # PT INR APTT Sodium 142 Potassium 3.4 L Chloride 109 Carbon Dioxide 24 BUN 6 L Creatinine 0.68 Est GFR ( Amer) > 60 Est GFR (Non-Af Amer) > 60 BUN/Creatinine Ratio 9 Glucose 102 H Calculated Osmolality 292 Lactic Acid 0.5 Calcium 8.0 L Magnesium 1.7 Total Bilirubin 0.4 AST 24 ALT 14 Alkaline Phosphatase 121 Serum Total Protein 5.7 L Albumin 2.7 L Globulin 3.0 Albumin/Globulin Ratio 0.9 L Chlamy pneumoniae PCR Not Detected Adenovirus (PCR) Not Detected B. pertussis DNA (PCR) Not Detected Coronavirus OC43 (PCR) Not Detected Coronavirus HKU1 (PCR) Not Detected Coronavirus 229E (PCR) Not Detected Coronavirus NL63 (PCR) Not Detected Human Metapneumovir PCR Not Detected Influenza A (H1) PCR Not Detected Influ A (H1N1/09) PCR Not Detected Influenza A (H3) PCR Not Detected Influenza A Untype (PCR) Not Detected Influenza Type B (PCR) Not Detected M.pneumoniae DNA (PCR) Not Detected Parainfluenza 1 (PCR) Not Detected Parainfluenza 2 (PCR) Not Detected Parainfluenza 3 (PCR) Not Detected Parainfluenza 4 (PCR) Not Detected RSV (PCR) Not Detected Entero/Rhino (PCR) Not Detected Assessment and Plan (1) Altered mental status Current visit: No Status: Acute Plan: Continue hospitalization, Close observation, Suicide Precautions per unit protocol, Encourage participation in unit milieu, Group Therapy, Monitor sleep, Monitor appetite Additional Plan: From psychiatric standpoint, patient is stable and can be discharged if medically clear. She will follow-up with mental health clinic. Qualifiers: Altered mental status type: unspecified Qualified Code(s): R41.82 - Altered mental status, unspecified Consult Discharge Plan - Plan Instructions: Levofloxacin (By mouth) Referrals: Krystal Jones [Outside] - 03/31/17 8:30 am (The above appointment is with Teri Crouch for outpatient psychiatric assessment and medication management services.) Kg Herrera, PAC [Primary Care Provider] - 04/30/17 10:00 am Prescriptions: levoFLOXacin [Levaquin] 500 mg PO DAILY #5 tablet
[2017-03-28] MEDS ORDERED: Vancomycin 1,250 MG in D5% in Water 250 ML IVPB SCH (16:00)
[2017-03-28] MEDS ORDERED: Budesonide/Formoterol 160/4.5 MDI IH SCH (22:00)
[2017-03-29] MEDS ORDERED: (Vilazodone Hcl [Viibryd] 40 MG) PO SCH (09:00)
[2017-03-29] MEDS ORDERED: Furosemide 20 MG TABLET PO SCH (09:00)
--- NOTE | 2017-03-29 10:41 | Electrocardiograph Report ---
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
== END 2017-03-28 15:00 | disposition home or self-care (01) ==
LOC: INTOOBSV 02:00 → SUATTDRO 02:00 → 3BNU 02:00
PROVIDERS: ADMIT Pediatrics; ATTEND Internal Medicine

== ENCOUNTER 2018-06-11 08:58 | Observation (INO) ==
--- NOTE | 2018-06-11 09:25 | Emergency Department Note ---
Disposition Clinical Impression: Elevated TSH Altered mental status Qualifiers: Altered mental status type: unspecified Qualified Code(s): R41.82 - Altered mental status, unspecified Disposition: Admitted As Inpatient Condition: Undetermined Referrals: NONE,PCP [Primary Care Provider] - General Adult HPI - General Stated complaint: Fall/ Unresponsive Time Seen by Provider: 06/11/18 09:03 Source: EMS Mode of arrival: EMS Limitations: altered mental status Nursing Notes Reviewed: Yes Vital Signs Reviewed: Yes - History of Present Illness HPI Narrative: Patient is a 47-year-old female with past medical history including substance abuse with meth presenting with facial trauma after a fall at an unknown time overnight. Patient's mother states she woke up this morning and found her daughter on the kitchen floor. She has been on the floor for an unknown period of time and hit the left side of her head. Her nose was also bloody. Her mother states the patient received muscle relaxers as a prescription in the mail yesterday and might have gotten into those and taken muscle relaxers. Took an unknown amount of an unknown substance at an unknown time. She is arousable but unresponsive and not talkative. Patient's mother called EMS for transfer here for further management. History obtained from EMS report. Patient is altered at this time. - Related Data Home Medications Medication Instructions Recorded Confirmed Baclofen [Lioresal] 10 mg PO TIDWM 06/23/16 05/17/18 Promethazine [Phenergan] 25 mg PO TID PRN 08/06/16 05/17/18 Acetylcysteine 600 mg PO TID 03/28/17 05/17/18 [F-Ciaagg-a-Cysteine] Budesonide/Formoterol 160/4.5 2 puff IH BIDR 03/28/17 05/17/18 [Symbicort 160/4.5] Cetirizine HCl [Zyrtec] 10 mg PO DAILY 03/28/17 05/17/18 Cholecalciferol (Vitamin D3) 10,000 unit PO QWEEK 03/28/17 05/17/18 [Vitamin D3] Furosemide [Lasix] 20 mg PO DAILY 03/28/17 05/17/18 Ipratropium/Albuterol Neb [Duoneb] 3 ml IH Q6HR PRN 03/28/17 05/17/18 lamoTRIgine [Lamictal] 25 mg PO DAILY 03/28/17 03/28/17 Calcium Carbonate [Calcium] 600 mg PO DAILY 03/24/18 05/17/18 Cyanocobalamin (Vitamin B-12) 1,000 mcg PO DAILY 03/24/18 05/17/18 [B-12] Desvenlafaxine [Desvenlafaxine ER] 100 mg PO DAILY 03/24/18 05/17/18 Ferrous Sulfate 325 mg PO DAILY 03/24/18 05/17/18 Levothyroxine Sodium 88 mcg PO DAILY 03/24/18 05/17/18 Ranitidine HCl [Acid Paper Cup Machine Operator] 150 mg PO BID 03/24/18 05/17/18 Albuterol Sulfate [Ventolin Hfa] 2 puff IH Q4H PRN 05/17/18 05/17/18 Quetiapine Fumarate [Seroquel] 50 - 100 mg PO HS PRN 05/17/18 05/17/18 clonazePAM [Clonazepam] 1 mg PO TID 05/17/18 05/17/18 Previous Rx's Medication Instructions Recorded Magnesium Oxide 400 mg PO DAILY #5 tablet 05/19/18 Doxycycline 100 mg PO BID #18 capsule 05/21/18 Allergies Allergy/AdvReac Type Severity Reaction Status Date / Time Amoxicillin Allergy Severe Swelling Verified 06/11/18 10:12 of Lip/Tongue/Throat acetaminophen [From Vicodin] Allergy Vomiting Verified 06/11/18 10:12 hydrocodone [From Vicodin] Allergy Vomiting Verified 06/11/18 10:12 Limitations: ROS unobtainable due to patients medical condition (altered mental status) Past Medical History - Past Medical History Attestation: Yes The following information was validated with the patient. 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 No septal hematoma noted.) - Neck Neck exam: Present: normal inspection, full ROM, trachea midline. Absent: tenderness - Chest Chest inspection: Present: normal inspection, symmetric chest wall rise - Respiratory Respiratory exam: Present: normal lung sounds bilaterally. Absent: respiratory distress, wheezes - Cardiovascular Cardiovascular exam: Present: regular rate, normal rhythm, normal heart sounds - Abdominal Exam Abdominal exam: Present: soft, Non-Tender - Extremities Exam Extremities exam: Present: normal inspection, full ROM, normal capillary refill - Neurological Exam Neurological exam: Present: alert, other (Not oriented to person, place, time. Not following commands. Not responding to questions. Appears intoxicated.) - Skin Skin exam: Present: warm, dry, other (Ecchymosis and swelling to the left forehead and left eyebrow. No lacerations noted.) Course Vital Signs Temperature 98.3 F 06/11/18 10:03 Pulse Rate 64 06/11/18 10:03 Respiratory Rate 18 06/11/18 10:03 Blood Pressure 143/84 06/11/18 10:03 O2 Sat by Pulse Oximetry 97 06/11/18 10:03 Temperature 98.3 F 06/11/18 10:13 Pulse Rate 98 06/11/18 12:27 Respiratory Rate 20 06/11/18 12:27 Blood Pressure 136/96 06/11/18 12:27 O2 Sat by Pulse Oximetry 96 06/11/18 12:27 Oxygen Delivery Oxygen Delivery Room Air Medical Decision Making - [facility] Narrative Medical decision making narrative: Limited history secondary to patient's altered mental status. Possible intoxication with muscle relaxants. She does have history of substance abuse with meth. She appears intoxicated at this time. She is alert and opens her eyes to sternal rub. She keeps moving her hands to her face making jerking movements. She will not respond to questions. She does not follow commands, but does open her eyes when asked to. We will obtain CT head, cervical spine, maxillofacial. We will also obtain EKG, glucose, CBC, BMP, urine drug screen, salicylate level, acetaminophen level, ethanol level. At this time, patient is protecting her airway and does not require intubation. We will continue to monitor. Patient does has significant bruising on bilateral upper and lower extremities i n different stages of healing. No tenderness upon palpation of her extremities. No obvious dislocations or fractures are noted. 11:50 CT and labs reviewed. Urine drug screen negative. Salicylate, ethanol, acetaminophen level negative. CT imaging shows no acute fracture, no acute intracranial abnormalities. We will discuss with poison control at this time and admit the patient as she is still altered, consuming an unknown substance, and unsafe for discharge home. Discussed with Bonita at poison control. No further recommendations at this time. Muscle relaxants can cause anticholinergic response with elevated heart rate and blood pressures. Will continue to monitor and admit at this time. Hepatic panel, ammonia level and tsh also obtained. Patient is more alert at this time. 13:45 LFTs and ammonia levels are normal. CK was also normal. TSH is significantly elevated at 15.1. She does have history of hypothyroidism and has a prescription for Synthroid. Unknown if patient is compliant with her medications. At this time, patient is sleeping and vitals are stable. Will consult hospitalist at admission for this time. 14:20 Discussed with hospitalist, Dr. Rojas, who accepts admission. She is still protecting her airway and vitals stable. - Medical Records Medical records reviewed: Yes I reviewed the patient's medical records. - Lab Data Lab results reviewed: Yes I reviewed the patient's lab results. Result diagrams: 06/11/18 09:03 06/11/18 09:15 Lab Results 06/11/18 06/11/18 06/11/18 Range/Units 09:03 09:15 11:00 WBC 8.3 (4.3-11.1) K/mcL RBC 4.18 (3.82-4.97) M/mcL Hgb 13.1 (11.5-15.4) g/dL Hct 40.5 (35.3-44.9) % MCV 96.9 (83.0-100.0) fL MCH 31.3 (28.0-33.3) pg MCHC 32.3 (31.6-35.5) g/dL RDW 16.0 H (11.5-14.5) % Plt Count 310 (140-400) K/mcL MPV 9.8 (9.4-12.4) fL Immature Gran % 0.4 (0-4) % Seg Neutrophils % 67.9 % Lymphocytes % 19.5 % Monocytes % 9.7 % Eosinophils % 1.2 % Basophils % 1.3 % Neutrophils # 5.6 (1.6-8.9) K/mcL Lymphocytes # 1.6 (0.6-4.6) K/mcL Monocytes # 0.8 (0.0-1.3) K/mcL Eosinophils # 0.1 (0.0-0.6) K/mcL Basophils # 0.1 (0.0-0.2) K/mcL Nucleated RBCs/100 WBC 0.2 H (0) /100 WBC Sodium 139 (136-145) mEq/L Potassium 4.0 (3.5-5.1) mEq/L Chloride 107 (98-107) mEq/L Carbon Dioxide 26 (23-29) mEq/L BUN 15 (6-20) mg/dL Creatinine 0.79 (0.60-1.20) mg/dL Est GFR ( Amer) > 60 (> 60) Est GFR (Non-Af Amer) > 60 (> 60) BUN/Creatinine Ratio 19 (6-26) Glucose 102 (70-105) mg/dL Calculated Osmolality 289 (280-300) Calcium 8.6 (8.6-10.3) mg/dL Total Bilirubin (0.3-1.0) mg/dL Direct Bilirubin (0.0-0.2) mg/dL Indirect Bilirubin (0.0-1.2) mg/dL AST (13-39) Units/L ALT (7-52) Units/L Alkaline Phosphatase (34-104) Units/L Ammonia (16-53) mcmol/L Creatine Kinase 111 (30-223) Units/L Serum Total Protein (6.4-8.9) g/dL Albumin (3.5-5.7) g/dL Globulin (2.4-3.5) g/dL Albumin/Globulin Ratio (1.1-2.2) TSH (0.340-5.600) mcIU/mL Urine Color Yellow (Yellow) Urine Clarity Clear (Clear) Urine pH 6.0 (5.0-8.0) pH Units Ur Specific [place] 1.014 (1.010-1.025) Urine Protein Negative (Neg-Trace) mg/dL Urine Glucose (UA) Normal (Normal) mg/dL Urine Ketones Negative (Negative) mg/dL Urine Blood Moderate H (Negative) Urine Nitrite Negative (Negative) Urine Bilirubin Negative (Negative) Urine Urobilinogen Normal (Normal) mg/dL Ur Leukocyte Esterase Negative (Negative) Urine Microscopic RBC 5-15 H (0-3) per hpf Urine Microscopic WBC 0-3 (0-3) per hpf Ur Squamous Epith Cells Moderate H (None-Few) per lpf Urine Bacteria None Seen (None-Few) per hpf Hyaline Casts None Seen (None-Few) per lpf Ur Culture Indicated? NO (NO) Urine Test (Negative) Salicylates < 2.5 L (15.0-30.0) mg/dL Urine Opiates Screen (Exxlhj=987) ng/mL Acetaminophen < 10 L (10-20) mcg/mL Ur Barbiturates Screen (Epfcqc=594) ng/mL Ur Phencyclidine Scrn (Cutoff=25) ng/mL Ur Amphetamines Screen (Wpdavg=0218) ng/mL U Benzodiazepines Scrn (Kfdqnx=064) ng/mL Urine Cocaine Screen (Cutoff= 300) ng/mL U Marijuana (THC) Screen (Cutoff = 50) ng/mL Ur Drug Screen Interp Ethyl Alcohol < 10 (Less than 10) mg/dL 06/11/18 06/11/18 06/11/18 Range/Units 11:00 11:00 12:45 WBC (4.3-11.1) K/mcL RBC (3.82-4.97) M/mcL Hgb (11.5-15.4) g/dL Hct (35.3-44.9) % MCV (83.0-100.0) fL MCH (28.0-33.3) pg MCHC (31.6-35.5) g/dL RDW (11.5-14.5) % Plt Count (140-400) K/mcL MPV (9.4-12.4) fL Immature Gran % (0-4) % Seg Neutrophils % % Lymphocytes % % Monocytes % % Eosinophils % % Basophils % % Neutrophils # (1.6-8.9) K/mcL Lymphocytes # (0.6-4.6) K/mcL Monocytes # (0.0-1.3) K/mcL Eosinophils # (0.0-0.6) K/mcL Basophils # (0.0-0.2) K/mcL Nucleated RBCs/100 WBC (0) /100 WBC Sodium (136-145) mEq/L Potassium (3.5-5.1) mEq/L Chloride (98-107) mEq/L Carbon Dioxide (23-29) mEq/L BUN (6-20) mg/dL Creatinine (0.60-1.20) mg/dL Est GFR ( Amer) (> 60) Est GFR (Non-Af Amer) (> 60) BUN/Creatinine Ratio (6-26) Glucose (70-105) mg/dL Calculated Osmolality (280-300) Calcium (8.6-10.3) mg/dL Total Bilirubin 0.3 (0.3-1.0) mg/dL Direct Bilirubin 0.1 (0.0-0.2) mg/dL Indirect Bilirubin 0.2 (0.0-1.2) mg/dL AST 22 (13-39) Units/L ALT 11 (7-52) Units/L Alkaline Phosphatase 134 H (34-104) Units/L Ammonia (16-53) mcmol/L Creatine Kinase (30-223) Units/L Serum Total Protein 5.9 L (6.4-8.9) g/dL Albumin 3.3 L (3.5-5.7) g/dL Globulin 2.6 (2.4-3.5) g/dL Albumin/Globulin Ratio 1.3 (1.1-2.2) TSH 15.101 H (0.340-5.600) mcIU/mL Urine Color (Yellow) Urine Clarity (Clear) Urine pH (5.0-8.0) pH Units Ur Specific [place] (1.010-1.025) Urine Protein (Neg-Trace) mg/dL Urine Glucose (UA) (Normal) mg/dL Urine Ketones (Negative) mg/dL Urine Blood (Negative) Urine Nitrite (Negative) Urine Bilirubin (Negative) Urine Urobilinogen (Normal) mg/dL Ur Leukocyte Esterase (Negative) Urine Microscopic RBC (0-3) per hpf Urine Microscopic WBC (0-3) per hpf Ur Squamous Epith Cells (None-Few) per lpf Urine Bacteria (None-Few) per hpf Hyaline Casts (None-Few) per lpf Ur Culture Indicated? (NO) Urine Test Negative (Negative) Salicylates (15.0-30.0) mg/dL Urine Opiates Screen Negative (Letmnz=935) ng/mL Acetaminophen (10-20) mcg/mL Ur Barbiturates Screen Negative (Ynoaqy=961) ng/mL Ur Phencyclidine Scrn Negative (Cutoff=25) ng/mL Ur Amphetamines Screen Negative (Dclsqh=3233) ng/mL U Benzodiazepines Scrn Negative (Mwghrc=355) ng/mL Urine Cocaine Screen Negative (Cutoff= 300) ng/mL U Marijuana (THC) Screen Negative (Cutoff = 50) ng/mL Ur Drug Screen Interp See Below Ethyl Alcohol (Less than 10) mg/dL 06/11/18 Range/Units 12:45 WBC (4.3-11.1) K/mcL RBC (3.82-4.97) M/mcL Hgb (11.5-15.4) g/dL Hct (35.3-44.9) % MCV (83.0-100.0) fL MCH (28.0-33.3) pg MCHC (31.6-35.5) g/dL RDW (11.5-14.5) % Plt Count (140-400) K/mcL MPV (9.4-12.4) fL Immature Gran % (0-4) % Seg Neutrophils % % Lymphocytes % % Monocytes % % Eosinophils % % Basophils % % Neutrophils # (1.6-8.9) K/mcL Lymphocytes # (0.6-4.6) K/mcL Monocytes # (0.0-1.3) K/mcL Eosinophils # (0.0-0.6) K/mcL Basophils # (0.0-0.2) K/mcL Nucleated RBCs/100 WBC (0) /100 WBC Sodium (136-145) mEq/L Potassium (3.5-5.1) mEq/L Chloride (98-107) mEq/L Carbon Dioxide (23-29) mEq/L BUN (6-20) mg/dL Creatinine (0.60-1.20) mg/dL Est GFR ( Amer) (> 60) Est GFR (Non-Af Amer) (> 60) BUN/Creatinine Ratio (6-26) Glucose (70-105) mg/dL Calculated Osmolality (280-300) Calcium (8.6-10.3) mg/dL Total Bilirubin (0.3-1.0) mg/dL Direct Bilirubin (0.0-0.2) mg/dL Indirect Bilirubin (0.0-1.2) mg/dL AST (13-39) Units/L ALT (7-52) Units/L Alkaline Phosphatase (34-104) Units/L Ammonia 46 (16-53) mcmol/L Creatine Kinase (30-223) Units/L Serum Total Protein (6.4-8.9) g/dL Albumin (3.5-5.7) g/dL Globulin (2.4-3.5) g/dL Albumin/Globulin Ratio (1.1-2.2) TSH (0.340-5.600) mcIU/mL Urine Color (Yellow) Urine Clarity (Clear) Urine pH (5.0-8.0) pH Units Ur Specific [place] (1.010-1.025) Urine Protein (Neg-Trace) mg/dL Urine Glucose (UA) (Normal) mg/dL Urine Ketones (Negative) mg/dL Urine Blood (Negative) Urine Nitrite (Negative) Urine Bilirubin (Negative) Urine Urobilinogen (Normal) mg/dL Ur Leukocyte Esterase (Negative) Urine Microscopic RBC (0-3) per hpf Urine Microscopic WBC (0-3) per hpf Ur Squamous Epith Cells (None-Few) per lpf Urine Bacteria (None-Few) per hpf Hyaline Casts (None-Few) per lpf Ur Culture Indicated? (NO) Urine Test (Negative) Salicylates (15.0-30.0) mg/dL Urine Opiates Screen (Vbqttw=951) ng/mL Acetaminophen (10-20) mcg/mL Ur Barbiturates Screen (Pfruit=498) ng/mL Ur Phencyclidine Scrn (Cutoff=25) ng/mL Ur Amphetamines Screen (Nccgbr=2075) ng/mL U Benzodiazepines Scrn (Ixtfve=784) ng/mL Urine Cocaine Screen (Cutoff= 300) ng/mL U Marijuana (THC) Screen (Cutoff = 50) ng/mL Ur Drug Screen Interp Ethyl Alcohol (Less than 10) mg/dL - Radiology Data Radiology results reviewed: Yes I reviewed the patient's radiology results. Cervical Spine CT 06/11/18 09:03 IMPRESSION: Motion limited study. No acute intracranial abnormality. No facial bone fracture. No cervical spine fracture or dislocation. D/ / Manolo Glynn / Manolo Glynn Interpreting Provider: Manolo Glynn Face CT 06/11/18 09:03 IMPRESSION: Motion limited study. No acute intracranial abnormality. No facial bone fracture. No cervical spine fracture or dislocation. D/ / Manolo Glynn / Manolo Glynn Interpreting Provider: Manolo Glynn Head CT 06/11/18 09:03 IMPRESSION: Motion limited study. No acute intracranial abnormality. No facial bone fracture. No cervical spine fracture or dislocation. D/ / Manolo Glynn / Manolo Glynn Interpreting Provider: Manolo Glynn Chest X-Ray 06/11/18 09:05 IMPRESSION: No evidence of acute process. D/ / Manolo Glynn / Manolo Glynn Interpreting Provider: Manolo Glynn - EKG Data EKG #1 EKG attestation: Yes I reviewed and interpreted this EKG. EKG results narrative: EKG obtained today at 9:58 AM shows sinus rhythm with heart rate 68. DE interval 152. QRS duration 88. QTC 402. No ST elevation or depression noted. Compared to prior EKG on 05/16/2018 which showed sinus arrhythmia otherwise no acute changes. Attestation Statement - Attestation Attestation: I, Jamshid Gooden DO, examined this patient [id number] and my medical decision-making was reviewed with Dr. Miracle Mcgee , Resident Physician. I agree with the documented findings, disposition and treatment plan as described except to the extent set forth below. Please see my progress notes for details.
[2018-06-11] MEDS ORDERED: 0.9 % Sodium Chloride 1,000 ML IVC ONE (09:26)
[2018-06-11 09:30] LABS: Basophils # 0.1 K/mcL (0.0-0.2); Basophils % 1.3 %; Eosinophils # 0.1 K/mcL (0.0-0.6); Eosinophils % 1.2 %; Hematocrit 40.5 % (35.3-44.9); Hemoglobin 13.1 g/dL (11.5-15.4); Immature Granulocytes % 0.4 % (0-4); Lymphocytes # 1.6 K/mcL (0.6-4.6); Lymphocytes % 19.5 %; Mean Corpuscular HGB Conc 32.3 g/dL (31.6-35.5); Mean Corpuscular Hemoglobin 31.3 pg (28.0-33.3); Mean Corpuscular Volume 96.9 fL (83.0-100.0); Mean Platelet Volume 9.8 fL (9.4-12.4); Monocytes # 0.8 K/mcL (0.0-1.3); Monocytes % 9.7 %; Neutrophils # 5.6 K/mcL (1.6-8.9); Nucleated Red Blood Cells 0.2 /100 WBC (0); Platelet Count 310 K/mcL (140-400); Red Blood Count 4.18 M/mcL (3.82-4.97); Segmented Neutrophils % 67.9 %
[2018-06-11 09:45] LABS: Acetaminophen < 10 mcg/mL (10-20); BUN/Creatinine Ratio 19 (6-26); Blood Urea Nitrogen 15 mg/dL (6-20); Calcium 8.6 mg/dL (8.6-10.3); Carbon Dioxide 26 mEq/L (23-29); Chloride 107 mEq/L (98-107); Creatine Kinase 111 Units/L (30-223); Ethanol < 10 mg/dL (Less than 10); Glucose 102 mg/dL (70-105); Osmolality,Calculated 289 (280-300); Salicylate < 2.5 mg/dL (15.0-30.0); Sodium 139 mEq/L (136-145); eGFR For Non-African Americans > 60 (> 60)
--- NOTE | 2018-06-11 09:46 | Emergency Department Note ---
Disposition Clinical Impression: Elevated TSH Altered mental status Qualifiers: Altered mental status type: unspecified Qualified Code(s): R41.82 - Altered mental status, unspecified Disposition: Admitted As Inpatient Condition: Undetermined Referrals: NONE,PCP [Primary Care Provider] - Time of Disposition: 14:32 General Adult HPI - General Stated complaint: Fall/ Unresponsive Time Seen by Provider: 06/11/18 09:03 Source: EMS Mode of arrival: EMS Limitations: altered mental status - Related Data Home Medications Medication Instructions Recorded Confirmed Baclofen [Lioresal] 10 mg PO TIDWM 06/23/16 05/17/18 Promethazine [Phenergan] 25 mg PO TID PRN 08/06/16 05/17/18 Acetylcysteine 600 mg PO TID 03/28/17 05/17/18 [Q-Fjxuzl-e-Cysteine] Budesonide/Formoterol 160/4.5 2 puff IH BIDR 03/28/17 05/17/18 [Symbicort 160/4.5] Cetirizine HCl [Zyrtec] 10 mg PO DAILY 03/28/17 05/17/18 Cholecalciferol (Vitamin D3) 10,000 unit PO QWEEK 03/28/17 05/17/18 [Vitamin D3] Furosemide [Lasix] 20 mg PO DAILY 03/28/17 05/17/18 Ipratropium/Albuterol Neb [Duoneb] 3 ml IH Q6HR PRN 03/28/17 05/17/18 lamoTRIgine [Lamictal] 25 mg PO DAILY 03/28/17 03/28/17 Calcium Carbonate [Calcium] 600 mg PO DAILY 03/24/18 05/17/18 Cyanocobalamin (Vitamin B-12) 1,000 mcg PO DAILY 03/24/18 05/17/18 [B-12] Desvenlafaxine [Desvenlafaxine ER] 100 mg PO DAILY 03/24/18 05/17/18 Ferrous Sulfate 325 mg PO DAILY 03/24/18 05/17/18 Levothyroxine Sodium 88 mcg PO DAILY 03/24/18 05/17/18 Ranitidine HCl [Acid [facility] [employer] [facility] Worker] 150 mg PO BID 03/24/18 05/17/18 Albuterol Sulfate [Ventolin Hfa] 2 puff IH Q4H PRN 05/17/18 05/17/18 Quetiapine Fumarate [Seroquel] 50 - 100 mg PO HS PRN 05/17/18 05/17/18 clonazePAM [Clonazepam] 1 mg PO TID 05/17/18 05/17/18 Previous Rx's Medication Instructions Recorded Magnesium Oxide 400 mg PO DAILY #5 tablet 05/19/18 Doxycycline 100 mg PO BID #18 capsule 05/21/18 Allergies Allergy/AdvReac Type Severity Reaction Status Date / Time Amoxicillin Allergy Severe Swelling Verified 06/11/18 10:12 of Lip/Tongue/Throat acetaminophen [From Vicodin] Allergy Vomiting Verified 06/11/18 10:12 hydrocodone [From Vicodin] Allergy Vomiting Verified 06/11/18 10:12 Past Medical History - Past Medical History Medical history: Reports: GERD, arthritis, other, thyroid disease, syncope, COPD Surgical history: Reports: cholecystectomy, orthopedic, other, other Psychiatric history: Reports: depression [employer]UFA[employer]URING history: Reports: bilateral tubal ligation - Social History Smoking Status: Unknown if ever smoked Smokeless Tobacco Status: No Alcohol use: Reports: unknown Drug use: Reports: unknown Physical Exam - General Limitations: altered mental status General appearance: alert, appears intoxicated Course Vital Signs Temperature 98.3 F 06/11/18 10:03 Pulse Rate 64 06/11/18 10:03 Respiratory Rate 18 06/11/18 10:03 Blood Pressure 143/84 06/11/18 10:03 O2 Sat by Pulse Oximetry 97 06/11/18 10:03 Temperature 98.3 F 06/11/18 10:13 Pulse Rate 86 06/11/18 14:00 Respiratory Rate 20 06/11/18 14:00 Blood Pressure 109/75 06/11/18 14:00 O2 Sat by Pulse Oximetry 96 06/11/18 14:00 Oxygen Delivery Oxygen Delivery Room Air Medical Decision Making - Lab Data Result diagrams: 06/11/18 09:03 06/11/18 09:15 Lab Results 06/11/18 06/11/18 06/11/18 Range/Units 09:03 09:15 11:00 WBC 8.3 (4.3-11.1) K/mcL RBC 4.18 (3.82-4.97) M/mcL Hgb 13.1 (11.5-15.4) g/dL Hct 40.5 (35.3-44.9) % MCV 96.9 (83.0-100.0) fL MCH 31.3 (28.0-33.3) pg MCHC 32.3 (31.6-35.5) g/dL RDW 16.0 H (11.5-14.5) % Plt Count 310 (140-400) K/mcL MPV 9.8 (9.4-12.4) fL Immature Gran % 0.4 (0-4) % Seg Neutrophils % 67.9 % Lymphocytes % 19.5 % Monocytes % 9.7 % Eosinophils % 1.2 % Basophils % 1.3 % Neutrophils # 5.6 (1.6-8.9) K/mcL Lymphocytes # 1.6 (0.6-4.6) K/mcL Monocytes # 0.8 (0.0-1.3) K/mcL Eosinophils # 0.1 (0.0-0.6) K/mcL Basophils # 0.1 (0.0-0.2) K/mcL Nucleated RBCs/100 WBC 0.2 H (0) /100 WBC Sodium 139 (136-145) mEq/L Potassium 4.0 (3.5-5.1) mEq/L Chloride 107 (98-107) mEq/L Carbon Dioxide 26 (23-29) mEq/L BUN 15 (6-20) mg/dL Creatinine 0.79 (0.60-1.20) mg/dL Est GFR ( Amer) > 60 (> 60) Est GFR (Non-Af Amer) > 60 (> 60) BUN/Creatinine Ratio 19 (6-26) Glucose 102 (70-105) mg/dL Calculated Osmolality 289 (280-300) Calcium 8.6 (8.6-10.3) mg/dL Total Bilirubin (0.3-1.0) mg/dL Direct Bilirubin (0.0-0.2) mg/dL Indirect Bilirubin (0.0-1.2) mg/dL AST (13-39) Units/L ALT (7-52) Units/L Alkaline Phosphatase (34-104) Units/L Ammonia (16-53) mcmol/L Creatine Kinase 111 (30-223) Units/L Serum Total Protein (6.4-8.9) g/dL Albumin (3.5-5.7) g/dL Globulin (2.4-3.5) g/dL Albumin/Globulin Ratio (1.1-2.2) TSH (0.340-5.600) mcIU/mL Urine Color Yellow (Yellow) Urine Clarity Clear (Clear) Urine pH 6.0 (5.0-8.0) pH Units Ur Specific [place] 1.014 (1.010-1.025) Urine Protein Negative (Neg-Trace) mg/dL Urine Glucose (UA) Normal (Normal) mg/dL Urine Ketones Negative (Negative) mg/dL Urine Blood Moderate H (Negative) Urine Nitrite Negative (Negative) Urine Bilirubin Negative (Negative) Urine Urobilinogen Normal (Normal) mg/dL Ur Leukocyte Esterase Negative (Negative) Urine Microscopic RBC 5-15 H (0-3) per hpf Urine Microscopic WBC 0-3 (0-3) per hpf Ur Squamous Epith Cells Moderate H (None-Few) per lpf Urine Bacteria None Seen (None-Few) per hpf Hyaline Casts None Seen (None-Few) per lpf Ur Culture Indicated? NO (NO) Urine Test (Negative) Salicylates < 2.5 L (15.0-30.0) mg/dL Urine Opiates Screen (Snvlwa=374) ng/mL Acetaminophen < 10 L (10-20) mcg/mL Ur Barbiturates Screen (Vhzcea=827) ng/mL Ur Phencyclidine Scrn (Cutoff=25) ng/mL Ur Amphetamines Screen (Rswxna=8124) ng/mL U Benzodiazepines Scrn (Nvkrma=715) ng/mL Urine Cocaine Screen (Cutoff= 300) ng/mL U Marijuana (THC) Screen (Cutoff = 50) ng/mL Ur Drug Screen Interp Ethyl Alcohol < 10 (Less than 10) mg/dL 06/11/18 06/11/18 06/11/18 Range/Units 11:00 11:00 12:45 WBC (4.3-11.1) K/mcL RBC (3.82-4.97) M/mcL Hgb (11.5-15.4) g/dL Hct (35.3-44.9) % MCV (83.0-100.0) fL MCH (28.0-33.3) pg MCHC (31.6-35.5) g/dL RDW (11.5-14.5) % Plt Count (140-400) K/mcL MPV (9.4-12.4) fL Immature Gran % (0-4) % Seg Neutrophils % % Lymphocytes % % Monocytes % % Eosinophils % % Basophils % % Neutrophils # (1.6-8.9) K/mcL Lymphocytes # (0.6-4.6) K/mcL Monocytes # (0.0-1.3) K/mcL Eosinophils # (0.0-0.6) K/mcL Basophils # (0.0-0.2) K/mcL Nucleated RBCs/100 WBC (0) /100 WBC Sodium (136-145) mEq/L Potassium (3.5-5.1) mEq/L Chloride (98-107) mEq/L Carbon Dioxide (23-29) mEq/L BUN (6-20) mg/dL Creatinine (0.60-1.20) mg/dL Est GFR ( Amer) (> 60) Est GFR (Non-Af Amer) (> 60) BUN/Creatinine Ratio (6-26) Glucose (70-105) mg/dL Calculated Osmolality (280-300) Calcium (8.6-10.3) mg/dL Total Bilirubin 0.3 (0.3-1.0) mg/dL Direct Bilirubin 0.1 (0.0-0.2) mg/dL Indirect Bilirubin 0.2 (0.0-1.2) mg/dL AST 22 (13-39) Units/L ALT 11 (7-52) Units/L Alkaline Phosphatase 134 H (34-104) Units/L Ammonia (16-53) mcmol/L Creatine Kinase (30-223) Units/L Serum Total Protein 5.9 L (6.4-8.9) g/dL Albumin 3.3 L (3.5-5.7) g/dL Globulin 2.6 (2.4-3.5) g/dL Albumin/Globulin Ratio 1.3 (1.1-2.2) TSH 15.101 H (0.340-5.600) mcIU/mL Urine Color (Yellow) Urine Clarity (Clear) Urine pH (5.0-8.0) pH Units Ur Specific [place] (1.010-1.025) Urine Protein (Neg-Trace) mg/dL Urine Glucose (UA) (Normal) mg/dL Urine Ketones (Negative) mg/dL Urine Blood (Negative) Urine Nitrite (Negative) Urine Bilirubin (Negative) Urine Urobilinogen (Normal) mg/dL Ur Leukocyte Esterase (Negative) Urine Microscopic RBC (0-3) per hpf Urine Microscopic WBC (0-3) per hpf Ur Squamous Epith Cells (None-Few) per lpf Urine Bacteria (None-Few) per hpf Hyaline Casts (None-Few) per lpf Ur Culture Indicated? (NO) Urine Test Negative (Negative) Salicylates (15.0-30.0) mg/dL Urine Opiates Screen Negative (Btiyes=631) ng/mL Acetaminophen (10-20) mcg/mL Ur Barbiturates Screen Negative (Ohciia=858) ng/mL Ur Phencyclidine Scrn Negative (Cutoff=25) ng/mL Ur Amphetamines Screen Negative (Aqxoor=0682) ng/mL U Benzodiazepines Scrn Negative (Bysjwz=861) ng/mL Urine Cocaine Screen Negative (Cutoff= 300) ng/mL U Marijuana (THC) Screen Negative (Cutoff = 50) ng/mL Ur Drug Screen Interp See Below Ethyl Alcohol (Less than 10) mg/dL 06/11/18 Range/Units 12:45 WBC (4.3-11.1) K/mcL RBC (3.82-4.97) M/mcL Hgb (11.5-15.4) g/dL Hct (35.3-44.9) % MCV (83.0-100.0) fL MCH (28.0-33.3) pg MCHC (31.6-35.5) g/dL RDW (11.5-14.5) % Plt Count (140-400) K/mcL MPV (9.4-12.4) fL Immature Gran % (0-4) % Seg Neutrophils % % Lymphocytes % % Monocytes % % Eosinophils % % Basophils % % Neutrophils # (1.6-8.9) K/mcL Lymphocytes # (0.6-4.6) K/mcL Monocytes # (0.0-1.3) K/mcL Eosinophils # (0.0-0.6) K/mcL Basophils # (0.0-0.2) K/mcL Nucleated RBCs/100 WBC (0) /100 WBC Sodium (136-145) mEq/L Potassium (3.5-5.1) mEq/L Chloride (98-107) mEq/L Carbon Dioxide (23-29) mEq/L BUN (6-20) mg/dL Creatinine (0.60-1.20) mg/dL Est GFR ( Amer) (> 60) Est GFR (Non-Af Amer) (> 60) BUN/Creatinine Ratio (6-26) Glucose (70-105) mg/dL Calculated Osmolality (280-300) Calcium (8.6-10.3) mg/dL Total Bilirubin (0.3-1.0) mg/dL Direct Bilirubin (0.0-0.2) mg/dL Indirect Bilirubin (0.0-1.2) mg/dL AST (13-39) Units/L ALT (7-52) Units/L Alkaline Phosphatase (34-104) Units/L Ammonia 46 (16-53) mcmol/L Creatine Kinase (30-223) Units/L Serum Total Protein (6.4-8.9) g/dL Albumin (3.5-5.7) g/dL Globulin (2.4-3.5) g/dL Albumin/Globulin Ratio (1.1-2.2) TSH (0.340-5.600) mcIU/mL Urine Color (Yellow) Urine Clarity (Clear) Urine pH (5.0-8.0) pH Units Ur Specific [place] (1.010-1.025) Urine Protein (Neg-Trace) mg/dL Urine Glucose (UA) (Normal) mg/dL Urine Ketones (Negative) mg/dL Urine Blood (Negative) Urine Nitrite (Negative) Urine Bilirubin (Negative) Urine Urobilinogen (Normal) mg/dL Ur Leukocyte Esterase (Negative) Urine Microscopic RBC (0-3) per hpf Urine Microscopic WBC (0-3) per hpf Ur Squamous Epith Cells (None-Few) per lpf Urine Bacteria (None-Few) per hpf Hyaline Casts (None-Few) per lpf Ur Culture Indicated? (NO) Urine Test (Negative) Salicylates (15.0-30.0) mg/dL Urine Opiates Screen (Mwrpqx=578) ng/mL Acetaminophen (10-20) mcg/mL Ur Barbiturates Screen (Tmvlub=901) ng/mL Ur Phencyclidine Scrn (Cutoff=25) ng/mL Ur Amphetamines Screen (Xcruch=9557) ng/mL U Benzodiazepines Scrn (Qzrlen=705) ng/mL Urine Cocaine Screen (Cutoff= 300) ng/mL U Marijuana (THC) Screen (Cutoff = 50) ng/mL Ur Drug Screen Interp Ethyl Alcohol (Less than 10) mg/dL Attestation Statement - Attestation Attestation: I, Jamshid Gooden DO, examined this patient [id number] and my medical decision-making was reviewed with Dr. Miracle Mcgee , Resident Physician. I agree with the documented findings, disposition and treatment plan as described except to the extent set forth below. Please see my progress notes for details. 47-year-old female presents to the emergency room after being found with decreased responsiveness at home. She was found by her family member. Patient is a long-standing substance abuse history. The mother did receive a mail order prescription for muscle relaxers yesterday and the mother thinks that the patient got into the medicines. On arrival here her vital signs are stable transport by EMS. Patient will answer yes and no questions but does not have appropriate cognitive ability at this time. She does have visible trauma to the left side of the face bilateral bloody nostrils and then blood at the oral mucosa. No visible signs of facial fracture injury. Dentition appears to be intact. Head is atraumatic otherwise. TMs are normal. No midline cervical thoracic or lumbar spine tenderness. Lungs are clear. Heart is regular. C- collar will attempted to be placed for the patient is not tolerant of that secondary to the status. CT imaging the head maxillofacial bones and cervical spine will be collected. Screening labs including CBC chemistry CPK urinalysis urine urine drug screen as well as Tylenol and salicylate levels will be added on. EtOH will also be collected. Disposition is undetermined at this time. Patient will have fluid boluses started at this point. According to EMS the patient started twice in the past has always been methamphetamines. We will monitor closely for symptomatic control and observation. Disposition pending the full workup and treatment course. See detailed documentation of the physical exam, medical intervention, medical decision-making and disposition in the resident physician's note. No critical care provider the patient's treatment course at this time. 1215 Patient has negative laboratory workup this time. CT imaging of the head axial facial bones and cervical spine are unremarkable. Patient has negative chest x- ray. Liver function testing lipase and ammonia will be added on for definitive evaluation along with thyroid function. Patient will require admission for observation to make sure that the parent altered mentation clears. Poison control was contacted to make sure that there is no other recommendations from this time. Patient is otherwise stable 1425 Patient has negative drug screen at this time. Liver function testing and ammonia are normal. Patient is still confused but mentating and maintaining airway. Suspicion is for possible substance abuse is undetectable urine drug screen. She will be monitored in the hospital setting for continuation of care and management. Patient otherwise stable. Hospitalist Dr. Rojas reviewed the case. No other concerns or issues at this time.
[2018-06-11 11:23] LABS: Bilirubin,Urine Negative (Negative); Blood,Urine Moderate (Negative); Clarity,Urine Clear (Clear); Color,Urine Yellow (Yellow); Glucose,Urine (UA) Normal (Normal); Ketones,Urine Negative (Negative); Leukocyte Esterase,Urine Negative (Negative); Nitrite,Urine Negative (Negative); Protein,Urine Negative (Neg-Trace); Specific Gravity,Urine 1.014 (1.010-1.025); Urobilinogen,Urine Normal (Normal)
[2018-06-11 11:26] LABS: Bacteria,Urine None Seen per hpf (None-Few); Hyaline Casts,Urine None Seen per lpf (None-Few); Squamous Epithelial Cell,Urine Moderate per lpf (None-Few); WBC,Urine 0-3 per hpf (0-3)
[2018-06-11 11:34] LABS: Amphetamine Screen,Urine Negative ng/mL (Cutoff=1000); Barbiturate Screen,Urine Negative ng/mL (Cutoff=200); Benzodiazepines Screen,Urine Negative ng/mL (Cutoff=200); Cannabinoid Screen,Urine Negative ng/mL (Cutoff = 50); Cocaine Screen,Urine Negative ng/mL (Cutoff= 300); Opiate Screen,Urine Negative ng/mL (Cutoff=300); Phencyclidine Screen,Urine Negative ng/mL (Cutoff=25)
[2018-06-11 13:20] LABS: Albumin 3.3 g/dL (3.5-5.7); Albumin/Globulin Ratio 1.3 (1.1-2.2); Bilirubin,Direct 0.1 mg/dL (0.0-0.2); Bilirubin,Indirect 0.2 mg/dL (0.0-1.2); Bilirubin,Total 0.3 mg/dL (0.3-1.0); Globulin 2.6 g/dL (2.4-3.5); Total Protein 5.9 g/dL (6.4-8.9)
[2018-06-11 13:32] LABS: Thyroid Stimulating Hormone 15.101 mcIU/mL (0.340-5.600)
[2018-06-11] MEDS ORDERED: Naloxone 0.4 MG/ML INJ IVP PRN (14:25)
[2018-06-11 15:28] LABS: Magnesium 1.8 mg/dL (1.6-2.6)
--- NOTE | 2018-06-11 15:31 | Electrocardiograph Report ---
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
--- NOTE | 2018-06-11 16:16 | Internal Med History&Physical ---
Date of Encounter: 06/11/18 Time of Encounter: 15:00 Internal Medicine - H&P: HPI Chief complaint: AMS Admitted From: Home Plans for Post Hospital Care: Transfer Psych Facility History of present illness: Ms. Pham is a 47 year old female history including substance abuse with meth presenting with facial trauma after a fall at an unknown time overnight. paient has AMS and is unable to provide history so history is from ED physician. as epr ED physician, " Patient's mother states she woke up this morning and found her daughter on the kitchen floor. She has been on the floor for an unknown period of time and hit the left side of her head. Her nose was also bloody. Her mother states the patient received muscle relaxers as a prescription in the mail yesterday and might have gotten into those and taken muscle relaxers. Took an unknown amount of an unknown substance at an unknown time. She is arousable but unresponsive and not talkative. Patient's mother called EMS for transfer here for further management. History obtained from EMS report. Patient is altered at this time." Salicylate, ethanol, acetaminophen level negative. CT imaging shows no acute fracture, no acute intracranial abnormalities. as per eD physician "Bonita at poison control. No further recommendations at this time. Muscle relaxants can cause anticholinergic response with elevated heart rate and blood pressures. Will continue to monitor and admit at this time. Hepatic panel, ammonia level and tsh also obtained. Patient is more alert at this time." LFTs and ammonia levels are normal. CK was also normal. TSH is significantly e levated at 15.1. she was endorsed for further observation Past Med Surg Social Fam HX - Past Medical History Medical history: GERD, arthritis, other, thyroid disease, syncope, COPD Additional medical history: unknown Psychiatric history: depression - Past Surgical History Surgical History: cholecystectomy, orthopedic, other, other Additional surgical history: Gastric Bypass. Bilateral shoulder surgery. tubal ligation - Social History Smoking Status: Unknown if ever smoked Smokeless Tobacco Status: No Alcohol use: unknown Drug use: unknown - Family History Mother Family Member Ethnicity: Non- Living Status: Still Living Hx Family Cardiac Disorders: Yes (Tachycardia) Hx Family Respiratory Disorders: Yes (COPD) Hx Family Cancer: No Hx Family GI Disorders: No Hx Family Endocrine Disorder: No Hx Family Neuromuscular Disorders: No Hx Family Neurologic Disorders: No Hx Family HEENT Disorders: No Hx Family Autoimmune Disorders: No Internal Medicine - H&P: Meds Baclofen [Lioresal] 10 mg PO TIDWM 06/23/16 [History] Promethazine [Phenergan] 25 mg PO TID PRN 08/06/16 [History] Acetylcysteine [C-Busanq-y-Cysteine] 600 mg PO TID 03/28/17 [History] Budesonide/Formoterol 160/4.5 [Symbicort 160/4.5] 2 puff IH BIDR 03/28/17 [History] Cetirizine HCl [Zyrtec] 10 mg PO DAILY 03/28/17 [History] Cholecalciferol (Vitamin D3) [Vitamin D3] 10,000 unit PO QWEEK 03/28/17 [History] Furosemide [Lasix] 20 mg PO DAILY 03/28/17 [History] Ipratropium/Albuterol Neb [Duoneb] 3 ml IH Q6HR PRN 03/28/17 [History] lamoTRIgine [Lamictal] 25 mg PO DAILY 03/28/17 [History] Calcium Carbonate [Calcium] 600 mg PO DAILY 03/24/18 [History] Cyanocobalamin (Vitamin B-12) [B-12] 1,000 mcg PO DAILY 03/24/18 [History] Desvenlafaxine [Desvenlafaxine ER] 100 mg PO DAILY 03/24/18 [History] Ferrous Sulfate 325 mg PO DAILY 03/24/18 [History] Levothyroxine Sodium 88 mcg PO DAILY 03/24/18 [History] Ranitidine HCl [Acid Eyewear Consultant] 150 mg PO BID 03/24/18 [History] Albuterol Sulfate [Ventolin Hfa] 2 puff IH Q4H PRN 05/17/18 [History] Quetiapine Fumarate [Seroquel] 50 - 100 mg PO HS PRN 05/17/18 [History] clonazePAM [Clonazepam] 1 mg PO TID 05/17/18 [History] Magnesium Oxide 400 mg PO DAILY #5 tablet 05/19/18 [Rx] Doxycycline 100 mg PO BID #18 capsule 05/21/18 [Rx] Allergy/AdvReac Type Severity Reaction Status Date / Time Amoxicillin Allergy Severe Swelling Verified 06/11/18 10:12 of Lip/Tongue/Throat acetaminophen [From Vicodin] Allergy Vomiting Verified 06/11/18 10:12 hydrocodone [From Vicodin] Allergy Vomiting Verified 06/11/18 10:12 ROS unobtainable: due to mental status All Systems PM: Unable to obtain due to mental status. - Constitutional Vitals: Temp Pulse Resp BP Pulse Ox 98.3 F 93 17 105/62 96 06/11/18 10:13 06/11/18 15:10 06/11/18 15:10 06/11/18 15:10 06/11/18 15:10 Exam: General: Patient is easily arousable, laying in haley lateral decubit. Head: ecchymosis on the left forehead, dried blood at the nares, periorbitol ecchymosis of the left eye Eye: no scleral icterus, no conjunctival injection ENT: mucous membranes moist, Neck: normal inspection, trachea midline, full ROM, no carotid bruits, previous trach scar? Chest: normal inspection, symmetric chest rise Respiratory: Good respiratory effort. Bilateral breath sounds are clear without wheezing, crackles, or rhonchi. Cardiovascular: Regular rate and rhythm. s1 and s2 Abdomen: Bowel sounds present normoactive x-4 quadrants. Abdomen is soft, nondistended. no Epigastric tenderness. No guarding or rebound. No organomegaly noted, obese musculoskeletal: Spontaneously moving all extremities. no edema, right calf >left calf circumf Skin: warm, dry, intact, has bruising on bilateral upper and lower extremities at different stage of healing Neuro: drowsy but easily arrousable, speech is comprehendible, repeats her name, moving all extremities, follows simple commands, not oriented Psych: Patient's affect is normal Internal Med - H&P Results - Labs CBC & Chem 7: 06/11/18 09:03 06/11/18 09:15 Labs: Short CBC 06/11/18 Range/Units 09:03 WBC 8.3 (4.3-11.1) K/mcL Hgb 13.1 (11.5-15.4) g/dL Hct 40.5 (35.3-44.9) % Plt Count 310 (140-400) K/mcL Neutrophils # 5.6 (1.6-8.9) K/mcL BMP 06/11/18 09:15 Sodium 139 Potassium 4.0 Chloride 107 Carbon Dioxide 26 BUN 15 Creatinine 0.79 Glucose 102 Calcium 8.6 Liver Function 06/11/18 Range/Units 12:45 Total Bilirubin 0.3 (0.3-1.0) mg/dL Direct Bilirubin 0.1 (0.0-0.2) mg/dL AST 22 (13-39) Units/L ALT 11 (7-52) Units/L Alkaline Phosphatase 134 H (34-104) Units/L Albumin 3.3 L (3.5-5.7) g/dL Urine 06/11/18 Range/Units 11:00 Urine Color Yellow (Yellow) Urine Clarity Clear (Clear) Urine pH 6.0 (5.0-8.0) pH Units Ur Specific [place] 1.014 (1.010-1.025) Urine Protein Negative (Neg-Trace) mg/dL Urine Glucose (UA) Normal (Normal) mg/dL - EKG Data -: EKG Interpreted by Myself EKG shows normal: sinus rhythm - Impressions ITS Impressions Cervical Spine CT 06/11/18 09:03 IMPRESSION: Motion limited study. No acute intracranial abnormality. No facial bone fracture. No cervical spine fracture or dislocation. D/ / Manolo Glynn / Manolo Glynn Interpreting Provider: Manolo Glynn Face CT 06/11/18 09:03 IMPRESSION: Motion limited study. No acute intracranial abnormality. No facial bone fracture. No cervical spine fracture or dislocation. D/ / Manolo Glynn / Manolo Glynn Interpreting Provider: Manolo Glynn Head CT 06/11/18 09:03 IMPRESSION: Motion limited study. No acute intracranial abnormality. No facial bone fracture. No cervical spine fracture or dislocation. D/ / Manolo Glynn / Manolo Glynn Interpreting Provider: Manolo Glynn Chest X-Ray 06/11/18 09:05 IMPRESSION: No evidence of acute process. D/ / Manolo Glynn / Manolo Glynn Interpreting Provider: Manolo Glynn - Assessment and plan (1) Acute encephalopathy Current Visit: Yes Status: Acute Assessment and plan: secondary to drug over dose ( ?flexeril) poison center called by the ED - recommended observation Ammonia WNL, Utox negative alcohol negative continue with IVF thiamine neurochecks Q4H telemetry monitoring EKG Q8H watch QT any change in mental status -repeat CT head low threshold for intubation fall, seizure, aspiration precautions. keep HOB elevated waiting on home meds to be confirmed Ct head and neck IMPRESSION: Motion limited study. No acute intracranial abnormality. No facial bone fracture. No cervical spine fracture or dislocation. (2) Suicide attempt by drug ingestion Current Visit: No Status: Resolved Assessment and plan: as per family report drug is unknown sitter at bedside psych in AM once mental status improves rest of the management as above Qualifiers: Encounter type: subsequent encounter Qualified Code(s): T50.902D - Poison ing by unspecified drugs, medicaments and biological substances, intentional self-harm, subsequent encounter (3) History of drug use disorder Current Visit: Yes Status: Acute Assessment and plan: history of methamphetamine use, utox negative (4) Contusion of head Current Visit: No Status: Chronic Assessment and plan: s/p fall was cleared from trauma perspective by the ED physician bruises demarkated by the nursing staff- to be monitored CT head, cervical spine, IMPRESSION: Motion limited study. No acute intracranial abnormality. No facial bone fracture. No cervical spine fracture or dislocation. Qualifiers: Encounter type: initial encounter Contusion of head detail: eyelid Laterality: right Qualified Code(s): S00.11XA - Contusion of right eyelid and periocular area, initial encounter (5) Previous known suicide attempt Current Visit: No Status: Acute Assessment and plan: as per chart review has history of suicide attempt sitter at bedside (6) Hypothyroidism Current Visit: No Status: Chronic Assessment and plan: on synthroid however unsure of compliance continue synthroid PO from AM have TFT check in 4 weeks Qualifiers: Hypothyroidism type: unspecified Qualified Code(s): E03.9 - Hypothyroidism, unspecified (7) Wound of right lower extremity Current Visit: Yes Status: Acute Assessment and plan: wound care consulted DVT study Qualifiers: Encounter type: initial encounter Qualified Code(s): S81.801A - Unspecified open wound, right lower leg, initial encounter (8) DVT prophylaxis Current Visit: No Status: Acute Assessment and plan: Scds - Time Spent With Patient Total time spent is greater than 50% in coordination of care (as documented) at patient's floor/unit and/or counseling patient:
[2018-06-11] MEDS: Thiamine (B-1) 100 MG in D5% in Water 50 ML IVPB SCH (16:36)
[2018-06-11] MEDS ORDERED: Levothyroxine Sodium 100 MCG VIAL IVP ONE (16:45)
[2018-06-11] MEDS: 0.9 % Sodium Chloride 1,000 ML IVC SCH (16:45)
[2018-06-11] MEDS: Doxycycline 100 MG in 0.9 % Sodium Chloride Mini Bag 100 ML IVPB SCH (18:35)
[2018-06-11] MEDS: Budesonide/Formoterol 160/4.5 1 PUFF INH IH SCH (22:43)
[2018-06-12 03:42] LABS: Hematocrit 35.9 % (35.3-44.9); Mean Corpuscular HGB Conc 31.8 g/dL (31.6-35.5); Mean Corpuscular Hemoglobin 30.3 pg (28.0-33.3); Mean Corpuscular Volume 95.5 fL (83.0-100.0); Mean Platelet Volume 9.6 fL (9.4-12.4); Platelet Count 276 K/mcL (140-400); Red Blood Count 3.76 M/mcL (3.82-4.97); Red Cell Distribution Width 15.9 % (11.5-14.5)
[2018-06-12 03:43] LABS: Hemoglobin 11.4 g/dL (11.5-15.4)
[2018-06-12 03:59] LABS: Magnesium 1.8 mg/dL (1.6-2.6); Phosphorous 3.8 mg/dL (2.7-4.5)
[2018-06-12 04:00] LABS: Alanine Aminotransferase 12 Units/L (7-52); Albumin 2.9 g/dL (3.5-5.7); Albumin/Globulin Ratio 1.2 (1.1-2.2); Alkaline Phosphatase 119 Units/L (34-104); Aspartate Amino Transferase 22 Units/L (13-39); BUN/Creatinine Ratio 18 (6-26); Bilirubin,Total 0.5 mg/dL (0.3-1.0); Blood Urea Nitrogen 12 mg/dL (6-20); Carbon Dioxide 23 mEq/L (23-29); Chloride 109 mEq/L (98-107); Globulin 2.4 g/dL (2.4-3.5); Glucose 90 mg/dL (70-105); Osmolality,Calculated 285 (280-300); Potassium 3.7 mEq/L (3.5-5.1); Sodium 138 mEq/L (136-145); Total Protein 5.3 g/dL (6.4-8.9); eGFR For Non-African Americans > 60 (> 60)
[2018-06-12] MEDS: 0.9 % Sodium Chloride 1,000 ML IVC SCH (04:40)
[2018-06-12] MEDS: Doxycycline 100 MG in 0.9 % Sodium Chloride Mini Bag 100 ML IVPB SCH (05:12)
[2018-06-12] MEDS: Budesonide/Formoterol 160/4.5 1 PUFF INH IH SCH (07:46)
[2018-06-12] MEDS: Thiamine (B-1) 100 MG in D5% in Water 50 ML IVPB SCH (08:26)
[2018-06-12] MEDS ORDERED: Ipratropium/Albuterol Neb 3 ML IH PRN (09:10)
[2018-06-12] MEDS ORDERED: Cholecalciferol (D-3) 1,000 UNIT TABLET PO SCH (09:15)
[2018-06-12] MEDS ORDERED: Cyanocobalamin (B-12) 1,000 MCG TABLET PO SCH (09:30)
[2018-06-12] MEDS ORDERED: Magnesium Oxide 400 MG TABLET PO SCH (09:45)
[2018-06-12] MEDS ORDERED: Furosemide 20 MG TABLET PO SCH (09:45)
[2018-06-12] MEDS ORDERED: Venlafaxine XR (24 HR) 150 MG CAP.ER.24H PO SCH (09:45)
[2018-06-12 11:17] VITALS: BP 130/80
--- NOTE | 2018-06-12 11:31 | Consult Note ---
Date of Encounter: 06/12/18 Time of Encounter: 11:22 Assessment & Recommendation (1) Altered mental state Current visit: No Status: Acute Assessment & Recommendation: Client's mental status has improved and she seems to be thinking clearly. Admits to overtaking Baclofen for chronic pain issues but denies this was a suicide attempt. She is treated for depression on an outpatient basis but client reports her mood has been good for the last six months since switching her medication to Pristique. Denies suicidal ideation, intent, or plan today. Does not meet inpatient criteria at this time. Suggest she continue to follow- up with her outpatient provider for ongoing treatment and it would be best if her records from this hospitalization are sent to her outpatient provider so he/she is aware that client is overtaking Baclofen at times and that her use of this medication has been problematic. Would D/C sitter and discharge home when medically stable. Qualifiers: Altered mental status type: disorientation Qualified Code(s): R41.0 - Disorientation, unspecified History of Present Illness Requesting Physician: Cookie Montgomery MD Reason for consult: overdose History of present illness: Ms. Pham is a 47 year old female who was admitted after being found unrespo nsive at home. She had overdosed on Baclofen she had received through the mail. Client admits she overtook the Baclofen to help with her chronic pain. Denies it was a suicide attempt. According to consult note this has happened before. Client was vague about past occurrences but was adamant that none of them, including this one, was a deliberate attempt on her life. Client states "I have too much to live for." States she has an 11y/o daughter at home and that she is committed to being a mother. Admits she takes Pristique for depression and Seroquel at night be help her sleep but denies she at risk for harming herself or others. Denies suicidal ideation, intent, or plan. No evidence of psychosis or a thought disorder. Pleasant on exam. States her mood is good with the Pristique and she is already linked with services for follow-up in the community. CC: Cookie Montgomery MD Past Med Surg Social Fam HX - Past Medical History Medical history: GERD, arthritis, other, thyroid disease, syncope, COPD - Past Psychiatric History Psychiatric history: Reports: depression Family psychiatric history: Unknown Family History of Suicide: Unknown - Past Surgical History Surgical History: cholecystectomy, orthopedic, other, other - Social History Smoking Status: Unknown if ever smoked Smokeless Tobacco Status: No Alcohol use: unknown Drug use: unknown - Family History Mother Family Member Ethnicity: Non- Living Status: Still Living Hx Family Cardiac Disorders: Yes (Tachycardia) Hx Family Respiratory Disorders: Yes (COPD) Hx Family Cancer: No Hx Family GI Disorders: No Hx Family Endocrine Disorder: No Hx Family Neuromuscular Disorders: No Hx Family Neurologic Disorders: No Hx Family HEENT Disorders: No Hx Family Autoimmune Disorders: No Medications & Allergies Baclofen [Lioresal] 10 mg PO TIDWM 06/23/16 [History] Promethazine [Phenergan] 25 mg PO TID PRN 08/06/16 [History] Acetylcysteine [N-Hxyteb-j-Cysteine] 600 mg PO TID 03/28/17 [History] Budesonide/Formoterol 160/4.5 [Symbicort 160/4.5] 2 puff IH BIDR 03/28/17 [History] Cetirizine HCl [Zyrtec] 10 mg PO DAILY 03/28/17 [History] Cholecalciferol (Vitamin D3) [Vitamin D3] 10,000 unit PO QWEEK 03/28/17 [History] Furosemide [Lasix] 20 mg PO DAILY 03/28/17 [History] Ipratropium/Albuterol Neb [Duoneb] 3 ml IH Q6HR PRN 03/28/17 [History] lamoTRIgine [Lamictal] 25 mg PO DAILY 03/28/17 [History] Calcium Carbonate [Calcium] 600 mg PO DAILY 03/24/18 [History] Cyanocobalamin (Vitamin B-12) [B-12] 1,000 mcg PO DAILY 03/24/18 [History] Desvenlafaxine [Desvenlafaxine ER] 100 mg PO DAILY 03/24/18 [History] Ferrous Sulfate 325 mg PO DAILY 03/24/18 [History] Levothyroxine Sodium 88 mcg PO DAILY 03/24/18 [History] Ranitidine HCl [Acid Patent Solicitor] 150 mg PO BID 03/24/18 [History] Albuterol Sulfate [Ventolin Hfa] 2 puff IH Q4H PRN 05/17/18 [History] Quetiapine Fumarate [Seroquel] 50 - 100 mg PO HS PRN 05/17/18 [History] clonazePAM [Clonazepam] 1 mg PO TID 05/17/18 [History] Magnesium Oxide 400 mg PO DAILY #5 tablet 05/19/18 [Rx] Allergy/AdvReac Type Severity Reaction Status Date / Time Amoxicillin Allergy Severe Swelling Verified 06/11/18 10:12 of Lip/Tongue/Throat acetaminophen [From Vicodin] Allergy Vomiting Verified 06/11/18 10:12 hydrocodone [From Vicodin] Allergy Vomiting Verified 06/11/18 10:12 Review of Systems Constitutional: Denies: fever, chills, weakness, weight change Eyes: Denies: eye pain, vision change Ears, Nose, Throat: Denies: ear pain, throat pain, dental pain, hearing loss, congestion Cardiovascular: Denies: chest pain, palpitations, dyspnea on exertion Respiratory: Denies: cough, dyspnea, wheezes Gastrointestinal: Denies: abdominal pain, nausea, vomiting, diarrhea, constipation Genitourinary female: Denies: urgency, dysuria, frequency, abnormal menses, dyspareunia Musculoskeletal: Denies: joint swelling, joint pain Integumentary: Denies: rash, lesions, pruritus Neurological: Denies: headache, weakness, numbness, memory loss Endocrine: Denies: fatigue, heat or cold intolerance Hematologic/Lymphatic: Denies: easy bruising, lymphadenopathy Allergic/Immunologic: Denies: urticaria, itchy eyes Psychiatry Exam - Constitutional Vitals: Temp Pulse Resp BP Pulse Ox 98.1 F 86 16 130/80 98 06/12/18 11:14 06/12/18 11:14 06/12/18 11:14 06/12/18 11:14 06/12/18 11:14 General appearance: age & developmentally appropriate, well-groomed, well- nourished - Musculoskeletal Gait: other Station: relaxed Strength & Tone: normal for patient - Psychiatric Patient Orientation: Yes Person, Yes Time, Yes Place Level of alertness: Alert Behavior: calm, cooperative Psychomotor activity: Normal Eye Contact: Maintains Eye Contact Mood Description: Euthymic/stable Affect description: congruent with mood, full range Speech Volume: Normal Speech pattern: normal rate, normal rhythm, normal tone, fluent, spontaneous Language & Vocabulary: consistent with education Thought Process: Linear, Goal Oriented Thought Content: No Suicidal ideation, No Homicidal ideation, No Overt delusions Perceptual Disturbances: No Auditory hallucinations, No Visual hallucinations Attention Span Ability: Capable of Focused Attention Memory Description: Grossly Intact Patient Reliability: Questionable Historian Fund of knowledge: Yes abstraction ability, Yes aware of current events Intelligence Estimate: Average Judgment: Limited Insight: Minimal Results - Drug Levels and Toxicology Drug Levels and Toxicology: Drug Levels and Toxicity 06/11/18 11:00 Urine Opiates Screen Negative Ur Barbiturates Screen Negative Ur Phencyclidine Scrn Negative Ur Amphetamines Screen Negative U Benzodiazepines Scrn Negative Urine Cocaine Screen Negative U Marijuana (THC) Screen Negative - Labs Labs: Laboratory Last Values WBC 6.5 K/mcL (4.3-11.1) 06/12/18 03:18 RBC 3.76 M/mcL (3.82-4.97) L 06/12/18 03:18 Hgb 11.4 g/dL (11.5-15.4) L D 06/12/18 03:18 Hct 35.9 % (35.3-44.9) 06/12/18 03:18 MCV 95.5 fL (83.0-100.0) 06/12/18 03:18 MCH 30.3 pg (28.0-33.3) 06/12/18 03:18 MCHC 31.8 g/dL (31.6-35.5) 06/12/18 03:18 RDW 15.9 % (11.5-14.5) H 06/12/18 03:18 Plt Count 276 K/mcL (140-400) 06/12/18 03:18 MPV 9.6 fL (9.4-12.4) 06/12/18 03:18 Immature Gran % 0.4 % (0-4) 06/11/18 09:03 Seg Neutrophils % 67.9 % 06/11/18 09:03 Lymphocytes % 19.5 % 06/11/18 09:03 Monocytes % 9.7 % 06/11/18 09:03 Eosinophils % 1.2 % 06/11/18 09:03 Basophils % 1.3 % 06/11/18 09:03 Neutrophils # 5.6 K/mcL (1.6-8.9) 06/11/18 09:03 Lymphocytes # 1.6 K/mcL (0.6-4.6) 06/11/18 09:03 Monocytes # 0.8 K/mcL (0.0-1.3) 06/11/18 09:03 Eosinophils # 0.1 K/mcL (0.0-0.6) 06/11/18 09:03 Basophils # 0.1 K/mcL (0.0-0.2) 06/11/18 09:03 Nucleated RBCs/100 WBC 0.2 /100 WBC (0) H 06/11/18 09:03 Sodium 138 mEq/L (136-145) 06/12/18 03:18 Potassium 3.7 mEq/L (3.5-5.1) 06/12/18 03:18 Chloride 109 mEq/L (98-107) H 06/12/18 03:18 Carbon Dioxide 23 mEq/L (23-29) 06/12/18 03:18 BUN 12 mg/dL (6-20) 06/12/18 03:18 Creatinine 0.65 mg/dL (0.60-1.20) 06/12/18 03:18 Est GFR ( Amer) > 60 (> 60) 06/12/18 03:18 Est GFR (Non-Af Amer) > 60 (> 60) 06/12/18 03:18 BUN/Creatinine Ratio 18 (6-26) 06/12/18 03:18 Glucose 90 mg/dL (70-105) 06/12/18 03:18 Calculated Osmolality 285 (280-300) 06/12/18 03:18 Calcium 8.0 mg/dL (8.6-10.3) L 06/12/18 03:18 Phosphorus 3.8 mg/dL (2.7-4.5) 06/12/18 03:18 Magnesium 1.8 mg/dL (1.6-2.6) 06/12/18 03:18 Total Bilirubin 0.5 mg/dL (0.3-1.0) 06/12/18 03:18 Direct Bilirubin 0.1 mg/dL (0.0-0.2) 06/11/18 12:45 Indirect Bilirubin 0.2 mg/dL (0.0-1.2) 06/11/18 12:45 AST 22 Units/L (13-39) 06/12/18 03:18 ALT 12 Units/L (7-52) 06/12/18 03:18 Alkaline Phosphatase 119 Units/L (34-104) H 06/12/18 03:18 Ammonia 46 mcmol/L (16-53) 06/11/18 12:45 Creatine Kinase 185 Units/L (30-223) 06/12/18 03:18 Serum Total Protein 5.3 g/dL (6.4-8.9) L 06/12/18 03:18 Albumin 2.9 g/dL (3.5-5.7) L 06/12/18 03:18 Globulin 2.4 g/dL (2.4-3.5) 06/12/18 03:18 Albumin/Globulin Ratio 1.2 (1.1-2.2) 06/12/18 03:18 TSH 15.101 mcIU/mL (0.340-5.600) H 06/11/18 12:45 Free T4 0.55 ng/dl (0.70-2.00) L 06/11/18 12:45 Urine Color Yellow (Yellow) 06/11/18 11:00 Urine Clarity Clear (Clear) 06/11/18 11:00 Urine pH 6.0 pH Units (5.0-8.0) 06/11/18 11:00 Ur Specific [place] 1.014 (1.010-1.025) 06/11/18 11:00 Urine Protein Negative mg/dL (Neg-Trace) 06/11/18 11:00 Urine Glucose (UA) Normal mg/dL (Normal) 06/11/18 11:00 Urine Ketones Negative mg/dL (Negative) 06/11/18 11:00 Urine Blood Moderate (Negative) H 06/11/18 11:00 Urine Nitrite Negative (Negative) 06/11/18 11:00 Urine Bilirubin Negative (Negative) 06/11/18 11:00 Urine Urobilinogen Normal mg/dL (Normal) 06/11/18 11:00 Ur Leukocyte Esterase Negative (Negative) 06/11/18 11:00 Urine Microscopic RBC 5-15 per hpf (0-3) H 06/11/18 11:00 Urine Microscopic WBC 0-3 per hpf (0-3) 06/11/18 11:00 Ur Squamous Epith Cells Moderate per lpf (None-Few) H 06/11/18 11:00 Urine Bacteria None Seen per hpf (None-Few) 06/11/18 11:00 Hyaline Casts None Seen per lpf (None-Few) 06/11/18 11:00 Ur Culture Indicated? NO (NO) 06/11/18 11:00 Urine Test Negative (Negative) 06/11/18 11:00 Nasal Screen MRSA (PCR) Negative (Negative) 06/11/18 18:45 Salicylates < 2.5 mg/dL (15.0-30.0) L 06/11/18 09:15 Urine Opiates Screen Negative ng/mL (Nrfgxo=442) 06/11/18 11:00 Acetaminophen < 10 mcg/mL (10-20) L 06/11/18 09:15 Ur Barbiturates Screen Negative ng/mL (Rjciya=730) 06/11/18 11:00 Ur Phencyclidine Scrn Negative ng/mL (Cutoff=25) 06/11/18 11:00 Ur Amphetamines Screen Negative ng/mL (Ihyhpw=9802) 06/11/18 11:00 U Benzodiazepines Scrn Negative ng/mL (Uzucoi=699) 06/11/18 11:00 Urine Cocaine Screen Negative ng/mL (Cutoff= 300) 06/11/18 11:00 U Marijuana (THC) Screen Negative ng/mL (Cutoff = 50) 06/11/18 11:00 Ur Drug Screen Interp See Below 06/11/18 11:00 Ethyl Alcohol < 10 mg/dL (Less than 10) 06/11/18 09:15 - Impressions Impressions Cervical Spine CT 06/11/18 09:03 IMPRESSION: Motion limited study. No acute intracranial abnormality. No facial bone fracture. No cervical spine fracture or dislocation. D/ / Manolo Glynn / Manolo Glynn Interpreting Provider: Manolo Glynn Face CT 06/11/18 09:03 IMPRESSION: Motion limited study. No acute intracranial abnormality. No facial bone fracture. No cervical spine fracture or dislocation. D/ / Manolo Glynn / Manolo Glynn Interpreting Provider: Manolo Glynn Head CT 06/11/18 09:03 IMPRESSION: Motion limited study. No acute intracranial abnormality. No facial bone fracture. No cervical spine fracture or dislocation. D/ / Manolo Glynn / Manolo Glynn Interpreting Provider: Manolo Glynn Consult Discharge Plan - Plan Referrals: NONE,PCP [Primary Care Provider] -
--- NOTE | 2018-06-12 11:44 | Electrocardiograph Report ---
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
--- NOTE | 2018-06-12 11:49 | Electrocardiograph Report ---
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
--- NOTE | 2018-06-12 12:48 | Discharge Summary ---
Orders not resulted at time of discharge: Pending orders 06/11/18 CT 3D reconstruction [CT] Routine 06/11/18 09:26 POC Glucometer Test [POC] Stat Date of Encounter: 06/12/18 Time of Encounter: 12:45 - Discharge Diagnosis (1) Acute encephalopathy Priority: Primary Status: Acute (2) History of drug use disorder Priority: Secondary Status: Acute (3) Contusion of head Priority: Secondary Status: Chronic Qualifiers: Encounter type: initial encounter Contusion of head detail: eyelid Laterality: right Qualified Code(s): S00.11XA - Contusion of right eyelid and periocular area, initial encounter (4) Previous known suicide attempt Priority: Secondary Status: Acute (5) Hypothyroidism Priority: Secondary Status: Chronic Qualifiers: Hypothyroidism type: unspecified Qualified Code(s): E03.9 - Hypothyroidism, unspecified (6) Wound of right lower extremity Priority: Secondary Status: Acute Qualifiers: Encounter type: initial encounter Qualified Code(s): S81.801A - Unspecified open wound, right lower leg, initial encounter (7) DVT prophylaxis Priority: Secondary Status: Acute Hospital course: "Ms. Pham is a 47 year old female history including substance abuse with meth presenting with facial trauma after a fall at an unknown time overnight. marina has AMS and is unable to provide history so history is from ED physician. as epr ED physician, " Patient's mother states she woke up this morning and found her daughter on the kitchen floor. She has been on the floor for an unknown period of time and hit the left side of her head. Her nose was also bloody. Her mother states the patient received muscle relaxers as a prescription in the mail yesterday and might have gotten into those and taken muscle relaxers. Took an unknown amount of an unknown substance at an unknown time. She is arousable but unresponsive and not talkative. Patient's mother called EMS for transfer here for further management. History obtained from EMS report. Patient is altered at this time." Salicylate, ethanol, acetaminophen level negative. CT imaging shows no acute fracture, no acute intracranial abnormalities. as per eD physician "Bonita at poison control. No further recommendations at this time. Muscle relaxants can cause anticholinergic response with elevated heart rate and blood pressures. Will continue to monitor and admit at this time. Hepatic panel, ammonia level and tsh also obtained. Patient is more alert at this time." LFTs and ammonia levels are normal. CK was also normal. TSH is significantly elevated at 15.1." Patient was presented with above presentation and was admitted for further observation. QT was monitored every 8 hours remained stable less than 500 last one was 405. One-to-one observation was initiated from the emergency department. Neuro checks were performed every [address] head, facial and cervical spine performed and she was cleared by the ED from the trauma stand point Mental status improved and in the morning of 06/12 she was alert and oriented 3, denied suicidal attempts, currently denies SI and HI. Reports that she took 5 pills of baclofen and cannot remember what happened to her after that. She does report that she did try the pills from an online pharmacy. Psych was consulted for further recommendations. as per psych " Client's mental status has improved and she seems to be thinking clearly. Admits to overtaking Baclofen for chronic pain issues but denies this was a suicide attempt. She is treated for depression on an outpatient basis but client reports her mood has been good for the last six months since switching her medication to Pristique. Denies suicidal ideation, intent, or plan today. Does not meet inpatient criteria at this time. Suggest she continue to follow-up with her outpatient provider for ongoing treatment and it would be best if her records from this hospitalization are sent to her outpatient provider so he/she is aware that client is overtaking Baclofen at times and that her use of this medication has been problematic. Would D/C sitter and discharge home when medically stable." vitals remained stable for 24 hrs. poison control was contacted and i spoke to cookie who works along with Dr. bal and they recommended no further monitoring is needed as she is now back as baseline. I discussed in depth with the patient and she understands that she is not to take online ordered medications. i discussed the risks including from taking too many doses of medications and she understands. Baclofen was discontinued from the list of her medications. She is to follow-up with her psychiatrist as outpatient. I discussed the right toe healing wound with her and she had followed up with Dr. Fajardo as Op and is due for her two week followup as OP this coming week, she reports that Abx were discontinued by the big data software engineer. she would like to follow up as Op with her big data software engineer for the right great toe fracture and healing ulcer s/p fall. wound care was consulted while inpatient. she understands that she will need to go to he closest ED or call 911 if she develops headache, neurological deficit, seizures or visual deficits etc. i discussed with pharmacy and lamictal was not continued as she has no documentation of filling the order, she is not sure if she was prescribed the medication. she is to follow up with her psychiatrist. CT head and neck and facial IMPRESSION: Motion limited study. No acute intracranial abnormality. No facial bone fracture. No cervical spine fracture or dislocation. Discharge discussed with: patient, nurse, technical support consultant - Time Spent with Patient Total time spent providing and/or coordinating discharge services: Less than 30 minutes - Discharge Medications Home Medications: Promethazine [Phenergan] 25 mg PO TID PRN 08/06/16 [History] Acetylcysteine [P-Rbcjyg-e-Cysteine] 600 mg PO TID 03/28/17 [History] Budesonide/Formoterol 160/4.5 [Symbicort 160/4.5] 2 puff IH BIDR 03/28/17 [History] Cetirizine HCl [Zyrtec] 10 mg PO DAILY 03/28/17 [History] Cholecalciferol (Vitamin D3) [Vitamin D3] 10,000 unit PO QWEEK 03/28/17 [History] Furosemide [Lasix] 20 mg PO DAILY 03/28/17 [History] Ipratropium/Albuterol Neb [Duoneb] 3 ml IH Q6HR PRN 03/28/17 [History] Calcium Carbonate [Calcium] 600 mg PO DAILY 03/24/18 [History] Cyanocobalamin (Vitamin B-12) [B-12] 1,000 mcg PO DAILY 03/24/18 [History] Desvenlafaxine [Desvenlafaxine ER] 100 mg PO DAILY 03/24/18 [History] Ferrous Sulfate 325 mg PO DAILY 03/24/18 [History] Levothyroxine Sodium 88 mcg PO DAILY 03/24/18 [History] Ranitidine HCl [Acid Inpatient Pharmacist] 150 mg PO BID 03/24/18 [History] Albuterol Sulfate [Ventolin Hfa] 2 puff IH Q4H PRN 05/17/18 [History] Quetiapine Fumarate [Seroquel] 50 - 100 mg PO HS PRN 05/17/18 [History] clonazePAM [Clonazepam] 1 mg PO TID 05/17/18 [History] Magnesium Oxide 400 mg PO DAILY #5 tablet 05/19/18 [Rx] Allergies/Adverse Reactions: Allergy/AdvReac Type Severity Reaction Status Date / Time Amoxicillin Allergy Severe Swelling Verified 06/11/18 10:12 of Lip/Tongue/Throat acetaminophen [From Vicodin] Allergy Vomiting Verified 06/11/18 10:12 hydrocodone [From Vicodin] Allergy Vomiting Verified 06/11/18 10:12 Date of admission: 06/11/18 14:38 Primary care physician: PCP NONE Consults: 06/11/18 15:41 Consult to Wound Care [CONS] Stat Reason for Consult: rle wound Call Completed: Yes 06/12/18 09:08 Consult to Psychiatry [CONS] Stat Consulting Provider: Psychiatry Aniya Reason consult: Confusion Altered mental status Other Other reason and/or additional details: patient with multiple admissions for suicidal attempts and drug overdose again with overdose on baclofen currently axox3 - Constitutional Vitals: Temp Pulse Resp BP Pulse Ox 98.1 F 86 16 130/80 98 06/12/18 11:14 06/12/18 11:14 06/12/18 11:14 06/12/18 11:14 06/12/18 11:14 Exam: General: Axox 3 eating lunch in no acute distress, pleasant Head: ecchymosis on the left forehead,, periorbitol ecchymosis of the left eye Eye: no scleral icterus, no conjunctival injection ENT: mucous membranes moist, Neck: normal inspection, trachea midline, full ROM, no carotid bruits, previous trach scar? Chest: normal inspection, symmetric chest rise Respiratory: Good respiratory effort. Bilateral breath sounds are clear without wheezing, crackles, or rhonchi. Cardiovascular: Regular rate and rhythm. s1 and s2 Abdomen: Bowel sounds present normoactive x-4 quadrants. Abdomen is soft, nondistended. no Epigastric tenderness. No guarding or rebound. No organomega ly noted, obese musculoskeletal: Spontaneously moving all extremities. no edema, no calf tenderness Skin: warm, dry, intact, has bruising on bilateral upper and lower extremities at different stage of healing, righ tgreat toe is swollen from fx and has a well healed closing ulcer without signs of infection Neuro: Axox 3 no focal deficit, gait is steady, strength is 5/5 in all extremities, speech is comprehendible. Psych: Patient's affect is normal denies SI and HI - Patient Status Disposition: Home, Self-Care Condition: Good Functional capacity at discharge: independent ambulation Overall status at discharge: patient is progressing back to baseline - Discharge Instructions Follow Up With: NONE,PCP [Primary Care Provider] - Forms: ED Satisfaction Letter - Diet and Activity Activity: increase activity as tolerated Diet: advance to your usual diet
--- NOTE | 2018-06-12 13:35 | Electrocardiograph Report ---
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
[2018-06-12] MEDS ORDERED: *HR* Acetylcysteine 20% 600 MG/3 ML ORAL SYRINGE PO SCH (15:00)
[2018-06-12] MEDS ORDERED: clonazePAM 1 MG TABLET PO SCH (15:00)
[2018-06-13] MEDS ORDERED: Loratadine 10 MG TABLET PO SCH (09:00)
== END 2018-06-12 14:54 | disposition home or self-care (01) ==
LOC: 2NENU 08:58 → EMEROOARM 08:58 → SUATTDRO 14:38 → 2NENU 15:31
PROVIDERS: ADMIT Hospitalist; ATTEND Internal Medicine

== ENCOUNTER 2018-07-03 10:02 | Inpatient (IN) ==
--- NOTE | 2018-07-03 12:52 | Internal Med History&Physical ---
Date of Encounter: 07/03/18 Time of Encounter: 12:52 Internal Medicine - H&P: HPI Chief complaint: abnormal MRI Admitted From: Home Plans for Post Hospital Care: Home History of present illness: Ms. Pham is a 47 year old female past medical history of COPD, leaky heart rales, chronic back pain, arthritis was sent from orthopedics for evaluation of possible septic arthritis/synovitis. Patient's complain of long-standing right hip pain for about 5 years. Patient recently had steroid injection for pain which did not resolve her pain. Patient had an MRI done on 06/30/18 which showed possible synovitis and erosive changes in the right femoral head, was sepsis to focus within femoral neck, prominent decubitus ulcers in the medial right buttock. Patient was transferred for direct admit with possible concern of bony abscess or bony edema at this changes putting patient had increased use of fracture. Patient denies any fevers, nausea, vomiting, diarrhea, chest pain, shortness of breath, bowel or bladder complaints. Past Med Surg Social Fam HX - Past Medical History Medical history: GERD, arthritis, other, thyroid disease, syncope, COPD Additional medical history: unknown Psychiatric history: depression - Past Surgical History Surgical History: cholecystectomy, orthopedic, other, other Additional surgical history: Gastric Bypass. Bilateral shoulder surgery. tubal ligation - Social History Smoking Status: Former smoker Smokeless Tobacco Status: No Alcohol use: unknown, rarely Drug use: unknown - Family History Mother Family Member Ethnicity: Non- Living Status: Still Living Hx Family Cardiac Disorders: Yes (Tachycardia) Hx Family Respiratory Disorders: Yes (COPD) Hx Family Cancer: No Hx Family GI Disorders: No Hx Family Endocrine Disorder: No Hx Family Neuromuscular Disorders: No Hx Family Neurologic Disorders: No Hx Family HEENT Disorders: No Hx Family Autoimmune Disorders: No Internal Medicine - H&P: Meds Promethazine [Phenergan] 25 mg PO TID PRN 08/06/16 [History] Acetylcysteine [I-Wfcxxr-t-Cysteine] 600 mg PO TID 03/28/17 [History] Budesonide/Formoterol 160/4.5 [Symbicort 160/4.5] 2 puff IH BIDR 03/28/17 [History] Cetirizine HCl [Zyrtec] 10 mg PO DAILY 03/28/17 [History] Cholecalciferol (Vitamin D3) [Vitamin D3] 10,000 unit PO QWEEK 03/28/17 [History] Furosemide [Lasix] 20 mg PO DAILY 03/28/17 [History] Ipratropium/Albuterol Neb [Duoneb] 3 ml IH Q6HR PRN 03/28/17 [History] Calcium Carbonate [Calcium] 600 mg PO DAILY 03/24/18 [History] Cyanocobalamin (Vitamin B-12) [B-12] 1,000 mcg PO DAILY 03/24/18 [History] Desvenlafaxine [Desvenlafaxine ER] 100 mg PO DAILY 03/24/18 [History] Levothyroxine Sodium 88 mcg PO DAILY 03/24/18 [History] Ranitidine HCl [Acid Women'S Health Care Nurse Practitioner] 150 mg PO BID 03/24/18 [History] Albuterol Sulfate [Ventolin Hfa] 2 puff IH Q4H PRN 05/17/18 [History] Quetiapine Fumarate [Seroquel] 50 - 100 mg PO HS PRN 05/17/18 [History] clonazePAM [Clonazepam] 1 mg PO TID 05/17/18 [History] Allergy/AdvReac Type Severity Reaction Status Date / Time Amoxicillin Allergy Severe Swelling Verified 06/23/18 14:28 of Lip/Tongue/Throat acetaminophen [From Vicodin] Allergy Vomiting Verified 06/23/18 14:28 hydrocodone [From Vicodin] Allergy Vomiting Verified 06/23/18 14:28 All Systems PM: A 10-system review of systems was performed and is negative for pertinent findings except as documented above in the HPI. - Constitutional Exam: Constitutional: Vitals as noted. Conversant. No Apparent Distress. Eyes : Sclera white, conjunctiva clear, no lid lag, PEARLA. ENT : Grossly normal hearing. Moist mucus membranes. No JVD, no cervical lymphadenopathy. no thyromegaly or mass. Respiratory : Clear to auscultation bilaterally. No accessory muscle use, rales, rhonchi or wheezes Cardiovascular : RRR, +S1, +S2. no murmur, gallop, rubs. No chest wall tenderness GI/Abdominal : Soft, Non-tender, Non-distended, normal bowel sounds, soft, no peritoneal signs. no orgenomegaly or mass appreciated. no hernia. Musculoskeletal: pain with Rt hip range of motion. Has NWB boots on Rt leg for toe fracture. Neurological: AO X3, CN II-XII grossly intact, grossly normal motor and sensory exam. Skin: No skin lesion or decubitus ulcer noted - Assessment and plan (1) Right hip pain Current Visit: Yes Status: Acute Assessment and plan: - Patient with MRI findings concerning for septic arthropathy and intraosseous abscess - IR consulted for drainage. We will send body fluid for cultures, cell count, Gram stain, crystal analysis. Rheumatologic blood work was sent previously. - Orthopedics following - For the gluteal fluid collection IR we will look with ultrasound in the gluteal region if there is anything drainable. Surgery consulted as well. - We will start patient on vancomycin. (2) COPD (chronic obstructive pulmonary disease) Current Visit: No Status: Chronic Assessment and plan: - Not in exacerbation - Genial medication was confirmed Qualifiers: COPD type: chronic bronchitis Chronic bronchitis type: mucopurulent Qualified Code(s): J41.1 - Mucopurulent chronic bronchitis - Time Spent With Patient Total time spent is greater than 50% in coordination of care (as documented) at patient's floor/unit and/or counseling patient:
--- NOTE | 2018-07-03 13:36 | Orthopedic Consult Note ---
<Josy Abreu - Last Filed: 07/03/18 13:36> Date of Encounter: 07/03/18 Time of Encounter: 13:33 Assessment and Plan (1) Right hip pain Current Visit: Yes Status: Acute MRI IMPRESSION: Synovitis and erosive changes within the right femoral head which appear new since the previous exam. Additional 1.6 x 1.0 x 3.2 cm somewhat oval-shaped cystic focus within the femoral neck. Prominent decubitus ulcer right medial buttock extending fairly deep near the right ischium. No marrow changes within the right ischium. Constellation of findings are concerning for an inflammatory arthropathy, especially a septic arthropathy given the decubitus ulcer and rapid bony changes. Lesion within the right femoral neck may represent an intraosseous abscess. Posttraumatic rapidly progressive arthropathy or noninfectious inflammatory arthropathy is also in the differential. LAB: CBC with Differential LAB: ESR (Erythrocyte Sedimentation Rate) LAB: Uric Acid LAB: CRP (C-Reactive Protein) LAB: Rheumatoid Factor LAB: CCP IgG LAB: AILYN IgG ЕЛЕНА rflx IFA With the bony appearance and the concerns for abscess the difficulties at this patient has had with everyday life the ambulated ambulatory difficulties and the MRI findings we will discuss the case with rheumatology . With the pain that this patient has described we discussed at length with 2 different radiologists for this patient we discussed the difficulties with this patient's everyday life her very difficult social situation which she has difficulties getting to and from doctor's appointments or the hospital the MRI finding showing bony cystic change as well as what appears to be synovitis BB had septic there is some debate whether it is a septic synovitis of the right hip there is no signs of the decubitus ulcer in this region but given the fluid collection concerning for possible abscess with extension and some sacral edema this concern is very significant. With these concerns in this patient's social situation her antalgic gait from this issue and previous foot injury with blistering she is also concerned about possible infectious etiology. We discussed bed management and admission for expedited workup of this due to the patient's poor social si tuation and my concern for increased risk of femoral neck fracture. With this concern patient was adamant that she had to go home before being admitted. We will have this patient undergo protected weightbearing we discouraged this patient from leaving she is going to go home against our medical advice. We discussed the risks and benefits to include hip fracture and progressive worsening and functional decline she seems to understand this. this patient I feel after discussing with hospitalist would benefit from aspiration of this region to better determine whether this is infectious etiology blood work has been ordered as for workup for rheumatologic issue but given the bony edematous change in the lack of clarity on whether this is a bony abscess or bony edematous change the concern range from increased risk fracture possible treatment study options could include repeat MRI with and without contrast of the affected right hip. Versus interventional radiology aspiration of the hip. Also the fluid collection of this region in the gluteal region History of Present Illness Chief complaint: Right hip and buttock pain HPI: Ms. Pham is a 47 year old female, seen and evaluated by in clinic today. consulted in office. Office note: Patient presents today with continued complaints of right hip pain sharp achy dull type pain 7/and constant had MRI completed of her hip nothing makes it better walking makes it worse numbness tingling swelling at times and the patient is here after MRI follow-up. Patient denies any fevers chills or sweats denies any decubitus ulcers. Examination General Examination: CONSTITUTIONAL: alert, oriented, in no acute distress, non toxic . HEAD: normocephalic, Normal Contour and Symmetry . EYES: normal, pupils equal, and round. NOSE: normal, no epistaxis . ORAL CAVITY: mucosa moist . EXTREMITIES: no clubbing, cyanosis, or edema . PERIPHERAL PULSES: strong and equal bilaterally . LYMPH NODES: no palpable adenopathy. Past Med Surg Social Fam HX - Past Medical History Medical history: GERD, arthritis, other, thyroid disease, syncope, COPD Additional medical history: unknown Psychiatric history: depression - Past Surgical History Surgical History: cholecystectomy, orthopedic, other, other Additional surgical history: Gastric Bypass. Bilateral shoulder surgery. tubal ligation - Social History Smoking Status: Former smoker Smokeless Tobacco Status: No Alcohol use: unknown, rarely Drug use: unknown - Family History Mother Family Member Ethnicity: Non- Living Status: Still Living Hx Family Cardiac Disorders: Yes (Tachycardia) Hx Family Respiratory Disorders: Yes (COPD) Hx Family Cancer: No Hx Family GI Disorders: No Hx Family Endocrine Disorder: No Hx Family Neuromuscular Disorders: No Hx Family Neurologic Disorders: No Hx Family HEENT Disorders: No Hx Family Autoimmune Disorders: No Medications and Allergies RX: Promethazine [Phenergan] 25 mg PO TID PRN 08/06/16 [History] RX: Acetylcysteine [C-Hjxgoi-b-Cysteine] 600 mg PO TID 03/28/17 [History] RX: Budesonide/Formoterol 160/4.5 [Symbicort 160/4.5] 2 puff IH BIDR 03/28/17 [History] RX: Cetirizine HCl [Zyrtec] 10 mg PO DAILY 03/28/17 [History] RX: Cholecalciferol (Vitamin D3) [Vitamin D3] 10,000 unit PO QWEEK 03/28/17 [History] RX: Furosemide [Lasix] 20 mg PO DAILY 03/28/17 [History] RX: Ipratropium/Albuterol Neb [Duoneb] 3 ml IH Q6HR PRN 03/28/17 [History] RX: Calcium Carbonate [Calcium] 600 mg PO DAILY 03/24/18 [History] RX: Cyanocobalamin (Vitamin B-12) [B-12] 1,000 mcg PO DAILY 03/24/18 [History] RX: Desvenlafaxine [Desvenlafaxine ER] 100 mg PO DAILY 03/24/18 [History] RX: Levothyroxine Sodium 88 mcg PO DAILY 03/24/18 [History] RX: Ranitidine HCl [Acid Renal Dialysis Technician] 150 mg PO BID 03/24/18 [History] RX: Albuterol Sulfate [Ventolin Hfa] 2 puff IH Q4H PRN 05/17/18 [History] RX: Quetiapine Fumarate [Seroquel] 50 - 100 mg PO HS PRN 05/17/18 [History] RX: clonazePAM [Clonazepam] 1 mg PO TID 05/17/18 [History] Allergy/AdvReac Type Severity Reaction Status Date / Time Amoxicillin Allergy Severe Swelling Verified 06/23/18 14:28 of Lip/Tongue/Throat acetaminophen [From Vicodin] Allergy Vomiting Verified 06/23/18 14:28 hydrocodone [From Vicodin] Allergy Vomiting Verified 06/23/18 14:28 All Systems Reviewed: The remainder of the systems were reviewed and are negative Physical Exam - Constitutional Vitals: Temp Pulse Resp BP 99 F 80 18 135/73 07/03/18 13:26 07/03/18 13:26 07/03/18 13:26 07/03/18 13:26 Results - Labs Labs: All other labs normal. Consult Discharge Plan - Plan Referrals: Simi Velazquez [Primary Care Provider] - <Solomon Connolly - Last Filed: 07/03/18 14:17> Date of Encounter: 07/03/18 Assessment and Plan (1) Right hip pain Current Visit: Yes Status: Acute History of Present Illness HPI: MRI was reviewed with Dr. Maldonado this was also discussed with the hospitalist. The recommendation is an aspiration of the right hip to rule out septic arthritis a general Surgery consult to evaluate the mass posterior region with treatment recommendations to follow based on findings. All Systems Reviewed: The remainder of the systems were reviewed and are negative Physical Exam - Constitutional Vitals: Temp Pulse Resp BP 99 F 80 18 135/73 07/03/18 13:26 07/03/18 13:26 07/03/18 13:26 07/03/18 13:26 Results - Labs Labs: All other labs normal.
[2018-07-03 15:13] LABS: Basophils # 0.1 K/mcL (0.0-0.2); Basophils % 1.5 %; Eosinophils # 0.2 K/mcL (0.0-0.6); Eosinophils % 2.9 %; Hematocrit 36.6 % (35.3-44.9); Hemoglobin 11.4 g/dL (11.5-15.4); Immature Granulocytes % 0.4 % (0-4); Lymphocytes # 2.6 K/mcL (0.6-4.6); Lymphocytes % 35.6 %; Mean Corpuscular HGB Conc 31.1 g/dL (31.6-35.5); Mean Corpuscular Volume 96.3 fL (83.0-100.0); Mean Platelet Volume 9.8 fL (9.4-12.4); Monocytes # 0.7 K/mcL (0.0-1.3); Monocytes % 9.2 %; Neutrophils # 3.7 K/mcL (1.6-8.9); Platelet Count 292 K/mcL (140-400); Red Cell Distribution Width 16.3 % (11.5-14.5); Segmented Neutrophils % 50.4 %
[2018-07-03 15:22] LABS: BUN/Creatinine Ratio 24 (6-26); Blood Urea Nitrogen 17 mg/dL (6-20); Calcium 8.1 mg/dL (8.6-10.3); Carbon Dioxide 26 mEq/L (23-29); Chloride 113 mEq/L (98-107); Glucose 121 mg/dL (70-105); Osmolality,Calculated 289 (280-300); Potassium 3.4 mEq/L (3.5-5.1); Sodium 138 mEq/L (136-145); eGFR For Non-African Americans > 60 (> 60)
--- NOTE | 2018-07-03 16:09 | IR Procedure Note ---
Date of procedure: 07/03/18 Consent Obtained: Verbal consent, Written consent Timeout: Correct patient and procedure verified, Correct site verified, Time out performed, Skin prep completed Local anesthetic: Lidocaine 1% Indications: Abnormal hip Procedure Performed: Right hip aspiration Was there an nurses assistant present: No Site/Technique: Fluoro guided right hip aspirtion Results/Findings: No joint fluid present. 10 cc saline injected with aspirate obtained Estimated blood loss (cc): 0 Complications: None; Tolerated procedure well Post Procedure Treatment Plan: Continue inpatient care Specimen: Saline wash from right hip
[2018-07-03 16:19] LABS: Source,Synovial Fluid RT JOINT ASPIRATE
[2018-07-03] MEDS ORDERED: Isovue-370 500 ML BOTTLE IVP ONE (16:40)
--- NOTE | 2018-07-03 17:04 | General Surgery Consult Note ---
Date of Encounter: 07/03/18 Time of Encounter: 16:35 History of Present Illness Requesting physician: Serene Cm History of present illness: Called to see this 47-year-old for further evaluation and possible treatment abnormal MRI, 06/30/18. Significant findings include: A somewhat oval-shaped ill- defined oval structure in the right femoral neck measuring 1.6 x 1.0 x 3.2 cm which has developed since a prior MRI, 12/25/17; multiple regions of chondral fissuring along the superior acetabulum; erosive changes involving the femoral head considered new with 2 prominent erosions laterally and superiorly; synovitis, degenerative tearing of the labrum; edema within the gluteus olivia medially with evidence of a large decubitus ulcer along the posterior medial right buttocks extending into the deep soft tissues terminating near the right ischium. His the soft tissue findings that prompted this surgical consultation. The patient is complaining of right hip pain, which has increased since her presentation, 06/30/18. Examination demonstrated no corresponding physical findings to those demonstrated by MRI. The skin of both buttocks to the anus is intact, there is no erythema, edema, induration, or tenderness. No decubitus ulcer was identified. Past medical history: GERD, arthritis, thyroid disease, remote history of syncope, COPD, Surgical history: Cholecystectomy, gastric bypass, bilateral shoulder surgery, tubal ligation Allergies: Amoxicillin and Vicodin Medications: The patient was unable to identify all of her medications - the list was obtained from her medical record Promethazine 25 mg by mouth 3 times a day as needed for nausea or vomiting Acetylcysteine 600 mg by mouth 3 times a day Budesonide/formoterol 160/4.5 2 puffs twice a day Cetirizine 10 mg by mouth daily Cholecalciferol (vitamin D3) 10,000 units by mouth weekly Furosemide 20 g by mouth daily Ipratropium/albuterol nebulizer (DuoNeb) 3 mL in inhaled every 6 hours when necessary Calcium carbonate 6 mg by mouth daily Cyanocobalamin 1000 g by mouth daily Desvenlafaxine 100 mg by mouth daily Levothyroxine 88 g by mouth daily Ranitidine 250 mg by mouth twice a day Albuterol sulfate (Ventolin HFA) 2 puffs every 4 hours as needed Quetiapine 50-100 mg by mouth daily at bedtime when necessary Clonazepam 1 mg by mouth 3 times a day Social history: G1, P1; patient quit smoking in 2013, admitting to 1-2 packs daily since the age of 15 (approximately 25 years) the patient minutes to an occasional alcoholic beverage; she denies any illicit drug use. On physical examination: Female who appears to be in no acute distress but appears older than her stated age. Maximum temperature 99.7, pulse 80, respirations 18, blood pressure 134/73. SPO2 on room air 98-99% Skin: warm without obvious jaundice Lungs: Clear bilaterally Abdomen: Soft nontender Buttocks: Intact with no tenderness, induration, or skin edema, or skin ulcerations. Rectal: Normal sphincter tone. Brown stool present in the ampulla. Extremities: Tenderness right hip. No clubbing, cyanosis, or edema. Peripheral pulses equal and symmetrical Impression: Abnormal MRI which was reviewed with [facility], Dr. Herve Carr Hip arthrogram just completed - the findings described in the history of present illness. Dr. Carr completed aspiration of the right hip joint space with no detected fluid or pus Dr. Carr also completed an ultrasound pertaining to the right buttock findings - with no abnormalities detected Physical examination fails to demonstrate any findings corresponding to the described MRI abnormalities Recommendation: CT of the pelvis Past Med Surg Social Fam HX - Past Medical History Medical history: GERD, arthritis, other, thyroid disease, syncope, COPD Additional medical history: unknown Psychiatric history: depression - Past Surgical History Surgical History: cholecystectomy, orthopedic, other, other Additional surgical history: Gastric Bypass. Bilateral shoulder surgery. tubal ligation - Social History Smoking Status: Former smoker Smokeless Tobacco Status: No Alcohol use: unknown, rarely Drug use: unknown - Family History Mother Family Member Ethnicity: Non- Living Status: Still Living Hx Family Cardiac Disorders: Yes (Tachycardia) Hx Family Respiratory Disorders: Yes (COPD) Hx Family Cancer: No Hx Family GI Disorders: No Hx Family Endocrine Disorder: No Hx Family Neuromuscular Disorders: No Hx Family Neurologic Disorders: No Hx Family HEENT Disorders: No Hx Family Autoimmune Disorders: No Medications and Allergies Promethazine [Phenergan] 25 mg PO TID PRN 08/06/16 [History] Acetylcysteine [H-Dwhbzq-y-Cysteine] 600 mg PO TID 03/28/17 [History] Budesonide/Formoterol 160/4.5 [Symbicort 160/4.5] 2 puff IH BIDR 03/28/17 [History] Cetirizine HCl [Zyrtec] 10 mg PO DAILY 03/28/17 [History] Cholecalciferol (Vitamin D3) [Vitamin D3] 10,000 unit PO QWEEK 03/28/17 [History] Furosemide [Lasix] 20 mg PO PRN PRN 03/28/17 [History] Ipratropium/Albuterol Neb [Duoneb] 3 ml IH Q6HR PRN 03/28/17 [History] Calcium Carbonate [Calcium] 600 mg PO DAILY 03/24/18 [History] Cyanocobalamin (Vitamin B-12) [B-12] 1,000 mcg PO DAILY 03/24/18 [History] Desvenlafaxine [Desvenlafaxine ER] 100 mg PO DAILY 03/24/18 [History] Levothyroxine Sodium 88 mcg PO DAILY 03/24/18 [History] Ranitidine HCl [Acid Civil Engineer Helper] 150 mg PO BID 03/24/18 [History] Albuterol Sulfate [Ventolin Hfa] 2 puff IH Q4H PRN 05/17/18 [History] Quetiapine Fumarate [Seroquel] 50 - 100 mg PO HS PRN 05/17/18 [History] clonazePAM [Clonazepam] 1 mg PO TID 05/17/18 [History] Allergy/AdvReac Type Severity Reaction Status Date / Time Amoxicillin Allergy Severe Swelling Verified 06/23/18 14:28 of Lip/Tongue/Throat acetaminophen [From Vicodin] Allergy Vomiting Verified 06/23/18 14:28 hydrocodone [From Vicodin] Allergy Vomiting Verified 06/23/18 14:28 Review of Systems All systems PM: The remainder of the systems were reviewed and are negative General Surgery Exam Initial Vital Signs Temp Pulse Resp BP 99 F 80 18 135/73 07/03/18 13:26 07/03/18 13:26 07/03/18 13:26 07/03/18 13:26 Exam Initial Vital Signs Temp Pulse Resp BP 99 F 80 18 135/73 07/03/18 13:26 07/03/18 13:26 07/03/18 13:26 07/03/18 13:26 Results - Labs 07/03/18 14:36 07/03/18 14:36 Abnormal lab results RBC 3.80 M/mcL (3.82-4.97) L 07/03/18 14:36 Hgb 11.4 g/dL (11.5-15.4) L 07/03/18 14:36 MCHC 31.1 g/dL (31.6-35.5) L 07/03/18 14:36 RDW 16.3 % (11.5-14.5) H 07/03/18 14:36 Potassium 3.4 mEq/L (3.5-5.1) L 07/03/18 14:36 Chloride 113 mEq/L (98-107) H 07/03/18 14:36 Glucose 121 mg/dL (70-105) H 07/03/18 14:36 Calcium 8.1 mg/dL (8.6-10.3) L 07/03/18 14:36 Diabetes panel 07/03/18 Range/Units 14:36 Sodium 138 (136-145) mEq/L Potassium 3.4 L (3.5-5.1) mEq/L Chloride 113 H (98-107) mEq/L Carbon Dioxide 26 (23-29) mEq/L BUN 17 (6-20) mg/dL Creatinine 0.71 (0.60-1.20) mg/dL Glucose 121 H (70-105) mg/dL Calcium 8.1 L (8.6-10.3) mg/dL Calcium panel 07/03/18 Range/Units 14:36 Calcium 8.1 L (8.6-10.3) mg/dL Pituitary panel 07/03/18 Range/Units 14:36 Sodium 138 (136-145) mEq/L Potassium 3.4 L (3.5-5.1) mEq/L Chloride 113 H (98-107) mEq/L Carbon Dioxide 26 (23-29) mEq/L BUN 17 (6-20) mg/dL Creatinine 0.71 (0.60-1.20) mg/dL Glucose 121 H (70-105) mg/dL Calcium 8.1 L (8.6-10.3) mg/dL Adrenal panel 07/03/18 Range/Units 14:36 Sodium 138 (136-145) mEq/L Potassium 3.4 L (3.5-5.1) mEq/L Chloride 113 H (98-107) mEq/L Carbon Dioxide 26 (23-29) mEq/L BUN 17 (6-20) mg/dL Creatinine 0.71 (0.60-1.20) mg/dL Glucose 121 H (70-105) mg/dL Calcium 8.1 L (8.6-10.3) mg/dL All other labs normal. Consult Discharge Plan - Plan Referrals: Simi Velazquez [Primary Care Provider] -
[2018-07-03 18:42] LABS: Appearance,Synovial Fluid Clear (Clear-Hazy); Color,Synovial Fluid Colorless (Straw)
[2018-07-03] MEDS ORDERED: Ipratropium/Albuterol Neb 3 ML IH PRN (20:25)
[2018-07-03] MEDS: Famotidine 20 MG TABLET PO SCH (21:12)
[2018-07-03] MEDS ORDERED: Ibuprofen 400 MG TABLET PO ONE (21:42)
[2018-07-03] MEDS: clonazePAM 0.5 MG TABLET PO PRN (22:46)
[2018-07-03] MEDS: Budesonide/Formoterol 160/4.5 1 PUFF INH IH SCH (23:07)
[2018-07-04 06:41] LABS: Basophils # 0.1 K/mcL (0.0-0.2); Basophils % 1.2 %; Eosinophils # 0.2 K/mcL (0.0-0.6); Eosinophils % 3.9 %; Hemoglobin 10.7 g/dL (11.5-15.4); Immature Granulocytes % 0.3 % (0-4); Lymphocytes # 2.4 K/mcL (0.6-4.6); Lymphocytes % 39.8 %; Mean Corpuscular HGB Conc 31.5 g/dL (31.6-35.5); Mean Corpuscular Hemoglobin 30.4 pg (28.0-33.3); Mean Corpuscular Volume 96.6 fL (83.0-100.0); Monocytes # 0.6 K/mcL (0.0-1.3); Monocytes % 10.5 %; Neutrophils # 2.6 K/mcL (1.6-8.9); Platelet Count 262 K/mcL (140-400); Red Blood Count 3.52 M/mcL (3.82-4.97); Red Cell Distribution Width 16.3 % (11.5-14.5); Segmented Neutrophils % 44.3 %
[2018-07-04 07:05] LABS: BUN/Creatinine Ratio 24 (6-26); Blood Urea Nitrogen 18 mg/dL (6-20); Calcium 8.4 mg/dL (8.6-10.3); Carbon Dioxide 27 mEq/L (23-29); Chloride 110 mEq/L (98-107); Glucose 87 mg/dL (70-105); Osmolality,Calculated 291 (280-300); Potassium 4.3 mEq/L (3.5-5.1); Sodium 140 mEq/L (136-145); eGFR For Non-African Americans > 60 (> 60)
--- NOTE | 2018-07-04 07:08 | Orthopedics Progress Note ---
Date of Encounter: 07/04/18 Time of Encounter: 07:06 - Assessment and Plan (1) Right hip pain Current Visit: Yes Status: Acute Subjective Interval history: Patient seen this morning. Resting comfortably. Aspirationg of right hip negative for fluid. CT scan reviewed, bone lesion not well seen. Soft tissue mass well described. No surgical intervention planned at this time for right hip arthritis. bone lesion can be related to arthritis, osteomylitis, bone cyst or metastatic disease. recommend esr and crp bone scan after plan for soft tissue mass completed Objective Vital signs: Vital Signs Temp Pulse Resp BP Pulse Ox 07/04/18 04:28 97.7 F 65 16 102/55 99 07/04/18 00:05 98.5 F 80 16 98/59 92 07/03/18 23:07 16 97 07/03/18 21:20 98.2 F 81 16 104/57 97 07/03/18 13:26 99 F 80 18 135/73 Intake and Output 07/03/18 07/03/18 07/04/18 15:59 23:59 07:59 Intake Total 250 / 250 0 / 0 Output Total 0 / 0 0 / 0 Balance 250 / 250 0 / 0 Intake: IV Fluids 250 / 250 Vancocin 1,000 MG In 0.9 % 250 / 250 Sodium Chloride 250 ML @ 167 mls/hr IVPB Q12H [facility] Rx#: [id number] Oral 0 / 0 0 / 0 Output: Urine 0 / 0 0 / 0 Other: Weight 70.307 kg 63.8 kg Patient Weight 07/04/18 23:59 Weight 63.8 kg - Labs CBC & BMP: 07/04/18 05:58 07/04/18 05:58 Labs: Abnormal lab results RBC 3.52 M/mcL (3.82-4.97) L 07/04/18 05:58 Hgb 10.7 g/dL (11.5-15.4) L 07/04/18 05:58 Hct 34.0 % (35.3-44.9) L 07/04/18 05:58 MCHC 31.5 g/dL (31.6-35.5) L 07/04/18 05:58 RDW 16.3 % (11.5-14.5) H 07/04/18 05:58 Chloride 110 mEq/L (98-107) H 07/04/18 05:58 Calcium 8.4 mg/dL (8.6-10.3) L 07/04/18 05:58 Consult Discharge Plan - Plan Referrals: Simi Velazquez [Primary Care Provider] -
[2018-07-04] MEDS ORDERED: Aminoglycoside Consult 1 EACH MC ONE (07:41)
[2018-07-04] MEDS: Cyanocobalamin (B-12) 1,000 MCG TABLET PO SCH (08:01)
[2018-07-04] MEDS: Loratadine 10 MG TABLET PO SCH (08:01)
[2018-07-04] MEDS: Famotidine 20 MG TABLET PO SCH ×2 (08:02→16:20)
[2018-07-04 09:35] LABS: C-Reactive Protein < 5 mg/L (Less than 10)
[2018-07-04] MEDS: Budesonide/Formoterol 160/4.5 1 PUFF INH IH SCH ×2 (10:08→21:10)
--- NOTE | 2018-07-04 12:18 | General Surgery Progress Note ---
Date of Encounter: 07/04/18 Time of Encounter: 12:11 Subjective Patient reports: still having pain Narrative: General Surgery - MRI and CT pelvis personally reviewed with [facility]. The CT demonstrates subcutaneous fluid extending into the right ischiorectal fossa. No significant adjacent inflammation or enhancement is noted. There is no gas within the collection. CT findings correspond to the MRI findings, however, this nonspecific fluid collection is not evident on physical examination. The patient was reexamined with no skin changes during the absence of erythema, edema, thickening, or induration. The fluid collection is not palpable. The patient's primary complaint is that of right hip pain which has been evaluated per Interventional Radiology and Dr Connolly, [facility] and Alessio. The patient relates 2 "falls on her butt" related to a right leg injury but is vague about when these events occurred. The fluid may represent resolving hematoma from these incidents. Unfortunately, I have no intervention to offer as none appears to be indicated. Further evaluation and treatment of the right hip pain will be deferred to Dr Connolly and his team. Objective Vital Signs - Last 8 Hours Temp Pulse Resp BP Pulse Ox 07/04/18 10:08 16 98 07/04/18 07:57 97.9 F 82 18 111/81 100 07/04/18 04:28 97.7 F 65 16 102/55 99 Intake and Output 07/03/18 07/04/18 07/04/18 23:59 07:59 15:59 Intake Total 250 / 250 250 / 250 Output Total 0 / 0 0 / 0 Balance 250 / 250 250 / 250 Intake: IV Fluids 250 / 250 250 / 250 Vancocin 1,000 MG In 0.9 % 250 / 250 250 / 250 Sodium Chloride 250 ML @ 167 mls/hr IVPB Q12H [facility] Rx#: [id number] Oral 0 / 0 0 / 0 Output: Urine 0 / 0 0 / 0 Other: Weight 63.8 kg Patient Weight 07/04/18 23:59 Weight 63.8 kg - Labs 07/04/18 05:58 07/04/18 05:58 Diabetes panel 07/03/18 07/04/18 Range/Units 14:36 05:58 Sodium 138 140 (136-145) mEq/L Potassium 3.4 L 4.3 D (3.5-5.1) mEq/L Chloride 113 H 110 H (98-107) mEq/L Carbon Dioxide 26 27 (23-29) mEq/L BUN 17 18 (6-20) mg/dL Creatinine 0.71 0.76 (0.60-1.20) mg/dL Glucose 121 H 87 (70-105) mg/dL Calcium 8.1 L 8.4 L (8.6-10.3) mg/dL Calcium panel 07/03/18 07/04/18 Range/Units 14:36 05:58 Calcium 8.1 L 8.4 L (8.6-10.3) mg/dL Pituitary panel 07/03/18 07/04/18 Range/Units 14:36 05:58 Sodium 138 140 (136-145) mEq/L Potassium 3.4 L 4.3 D (3.5-5.1) mEq/L Chloride 113 H 110 H (98-107) mEq/L Carbon Dioxide 26 27 (23-29) mEq/L BUN 17 18 (6-20) mg/dL Creatinine 0.71 0.76 (0.60-1.20) mg/dL Glucose 121 H 87 (70-105) mg/dL Calcium 8.1 L 8.4 L (8.6-10.3) mg/dL Adrenal panel 07/03/18 07/04/18 Range/Units 14:36 05:58 Sodium 138 140 (136-145) mEq/L Potassium 3.4 L 4.3 D (3.5-5.1) mEq/L Chloride 113 H 110 H (98-107) mEq/L Carbon Dioxide 26 27 (23-29) mEq/L BUN 17 18 (6-20) mg/dL Creatinine 0.71 0.76 (0.60-1.20) mg/dL Glucose 121 H 87 (70-105) mg/dL Calcium 8.1 L 8.4 L (8.6-10.3) mg/dL Consult Discharge Plan - Plan Referrals: Simi Velazquez [Primary Care Provider] -
[2018-07-04] MEDS ORDERED: Ketorolac 30 MG/ML VIAL IVP ONE (15:51)
--- NOTE | 2018-07-04 19:01 | Internal Med Progress Note ---
Hospitalist Progress Note - Encounter Date of Encounter: 07/04/18 Time of Encounter: 16:00 - Subjective Interval History: Patient seen and examined at bedside. Patient reports continued right hip pain. She reports it is unchanged from yesterday. She denies any fever, chills, drainage - Exam Vitals: Temp Pulse Resp BP Pulse Ox 98.0 F 76 14 112/76 100 07/04/18 14:55 07/04/18 14:55 07/04/18 14:55 07/04/18 14:55 07/04/18 14:55 Exam: Gen.: Alert and at 3, no acute distress Heart: Regular rate and rhythm, no murmurs, rubs, gallops Lungs: Good breath sounds bilaterally, occasional end expiratory wheezes noted Extremities: No deformity noted, no lower extremity edema Skin no lesions or drainage noted. - Assessment and Plan (1) Pseudogout of hip Current Visit: Yes Status: Acute Assessment and Plan: Patient had right hip pain and there was initially concern for septic arthritis however she had synovial fluid aspiration that revealed CPPD crystals consistent with pseudogout. Patient has not had much relief from her pain, we will attempt to treat with Toradol, if ineffective will consider steroids. Synovial fluid Gram stain and culture are negative, no white count or fever making septic arthritis highly unlikely. Continue to monitor the patient's response over the next couple days and consider rheumatology consult on Friday (2) COPD (chronic obstructive pulmonary disease) Current Visit: No Status: Chronic Assessment and Plan: Stable. No evidence of acute exacerbation. Continue when necessary bronchodilators - Time Spent with Patient Total time spent is greater than 50% in coordination of care (as documented) at patient's floor/unit and/or counseling patient: Internal Medicine: Result - Labs CBC & Chem 7: 07/04/18 05:58 07/04/18 05:58 Labs: Short CBC 07/04/18 Range/Units 05:58 WBC 5.9 (4.3-11.1) K/mcL Hgb 10.7 L (11.5-15.4) g/dL Hct 34.0 L (35.3-44.9) % Plt Count 262 (140-400) K/mcL Neutrophils # 2.6 (1.6-8.9) K/mcL BMP 07/04/18 05:58 Sodium 140 Potassium 4.3 D Chloride 110 H Carbon Dioxide 27 BUN 18 Creatinine 0.76 Glucose 87 Calcium 8.4 L Consult Discharge Plan - Plan Referrals: Simi Velazquez [Primary Care Provider] - (1) Pseudogout of hip Qualifiers: Laterality: right Qualified Code(s): M11.251 - Other chondrocalcinosis, right hip (2) COPD (chronic obstructive pulmonary disease) Qualifiers: COPD type: chronic bronchitis Chronic bronchitis type: mucopurulent Qualified Code(s): J41.1 - Mucopurulent chronic bronchitis
[2018-07-04] MEDS: clonazePAM 0.5 MG TABLET PO PRN (22:50)
[2018-07-04] MEDS: Ketorolac 30 MG/ML VIAL IVP PRN (22:54)
[2018-07-05 03:47] LABS: Basophils % 0.6 %; Eosinophils # 0.2 K/mcL (0.0-0.6); Eosinophils % 3.6 %; Hematocrit 32.9 % (35.3-44.9); Hemoglobin 10.5 g/dL (11.5-15.4); Immature Granulocytes % 0.4 % (0-4); Lymphocytes % 20.8 %; Mean Corpuscular HGB Conc 31.9 g/dL (31.6-35.5); Mean Corpuscular Hemoglobin 30.2 pg (28.0-33.3); Mean Corpuscular Volume 94.5 fL (83.0-100.0); Mean Platelet Volume 10.3 fL (9.4-12.4); Monocytes # 0.7 K/mcL (0.0-1.3); Monocytes % 13.3 %; Neutrophils # 3.1 K/mcL (1.6-8.9); Platelet Count 250 K/mcL (140-400); Red Blood Count 3.48 M/mcL (3.82-4.97); Red Cell Distribution Width 16.1 % (11.5-14.5); Segmented Neutrophils % 61.3 %
[2018-07-05 04:08] LABS: BUN/Creatinine Ratio 25 (6-26); Blood Urea Nitrogen 21 mg/dL (6-20); Calcium 8.4 mg/dL (8.6-10.3); Carbon Dioxide 26 mEq/L (23-29); Chloride 105 mEq/L (98-107); Glucose 95 mg/dL (70-105); Osmolality,Calculated 289 (280-300); Potassium 4.4 mEq/L (3.5-5.1); Sodium 138 mEq/L (136-145); eGFR For Non-African Americans > 60 (> 60)
[2018-07-05 04:40] LABS: Platelet Estimate Normal (Normal); Reactive Lymphocytes Present (Not Present)
--- NOTE | 2018-07-05 06:33 | Orthopedics Progress Note ---
Date of Encounter: 07/05/18 Time of Encounter: 06:31 - Assessment and Plan (1) Right hip pain Current Visit: Yes Status: Acute Subjective Interval history: Lab work reviewed, ESR and CRP do not indicate infectious process, patient with findings consistent with pseudogout of right hip. Agree with recommended tony atment. General surgery release patient has resolving hematoma, recommend observation. Patient can be worked up as an outpatient and follow-up in the office. Objective Vital signs: Vital Signs Temp Pulse Resp BP Pulse Ox 07/05/18 04:18 98.4 F 77 16 97/62 98 07/04/18 21:13 16 99/64 97 07/04/18 19:39 98.6 F 90 16 99/64 97 07/04/18 14:55 98.0 F 76 14 112/76 100 07/04/18 12:55 98.3 F 52 16 109/68 100 07/04/18 10:08 16 98 07/04/18 07:57 97.9 F 82 18 111/81 100 Intake and Output 07/04/18 07/04/18 07/05/18 15:59 23:59 07:59 Intake Total 240 / 240 240 / 240 Balance 240 / 240 240 / 240 Intake: Oral 240 / 240 240 / 240 Other: # Voids 1 1 # Bowel Movements 0 0 Weight 63.3 kg Patient Weight 07/05/18 23:59 Weight 63.3 kg - Labs CBC & BMP: 07/05/18 03:12 07/05/18 03:12 Labs: Abnormal lab results RBC 3.48 M/mcL (3.82-4.97) L 07/05/18 03:12 Hgb 10.5 g/dL (11.5-15.4) L 07/05/18 03:12 Hct 32.9 % (35.3-44.9) L 07/05/18 03:12 RDW 16.1 % (11.5-14.5) H 07/05/18 03:12 Reactive Lymphocytes Present (Not Present) A 07/05/18 03:12 ESR 17 mm/hr (0-15) H 07/04/18 05:58 BUN 21 mg/dL (6-20) H 07/05/18 03:12 Calcium 8.4 mg/dL (8.6-10.3) L 07/05/18 03:12 Consult Discharge Plan - Plan Referrals: Simi Velazquez [Primary Care Provider] -
[2018-07-05] MEDS: Budesonide/Formoterol 160/4.5 1 PUFF INH IH SCH ×2 (07:36→19:42)
[2018-07-05] MEDS: Loratadine 10 MG TABLET PO SCH (07:37)
[2018-07-05] MEDS: Famotidine 20 MG TABLET PO SCH ×2 (07:37→15:55)
[2018-07-05] MEDS: Cyanocobalamin (B-12) 1,000 MCG TABLET PO SCH (07:37)
[2018-07-05] MEDS: clonazePAM 0.5 MG TABLET PO PRN ×3 (07:39→22:40)
[2018-07-05] MEDS: methylPREDNISolone 125 MG/2 ML VIAL IVP SCH ×2 (08:30→15:57)
[2018-07-05] MEDS: Ketorolac 30 MG/ML VIAL IVP PRN ×3 (08:51→22:40)
--- NOTE | 2018-07-05 12:30 | Internal Med Progress Note ---
Hospitalist Progress Note - Encounter Date of Encounter: 07/05/18 Time of Encounter: 12:26 - Subjective Interval History: Pt stated that she feels about 10% better - Exam Vitals: Temp Pulse Resp BP Pulse Ox 98.8 F 91 19 107/70 95 07/05/18 10:11 07/05/18 10:11 07/05/18 10:11 07/05/18 10:11 07/05/18 10:11 Exam: Gen.: Alert and at 3, no acute distress Heart: Regular rate and rhythm, no murmurs, rubs, gallops Lungs: Good breath sounds bilaterally, occasional end expiratory wheezes noted Extremities: No deformity noted, no lower extremity edema Skin no lesions or drainage noted. - Summary of Assessment and Plan Summary of Assessment and Plan: This is a 47 yof with hip pain 1) hip pain: Pt had undergone apsrational and showed spuedogout pt was started on speudogout yesterday and reported some relief at [facility], we will start thte pt on steorid and see how pt does no setpi source was isolated 2) post op hemtaoma Surgery signed off 3) DVT prophylaixs; on heparin 4)dipso: pt looks good, if shows iprovemnet with steorid, pt can then be discharged. This is CPP diesase, will give pt GI prophylaxis as well. TIme: 35min - Time Spent with Patient Total time spent is greater than 50% in coordination of care (as documented) at patient's floor/unit and/or counseling patient: Internal Medicine: Result - Labs CBC & Chem 7: 07/05/18 03:12 07/05/18 03:12 Labs: Short CBC 07/05/18 Range/Units 03:12 WBC 5.0 (4.3-11.1) K/mcL Hgb 10.5 L (11.5-15.4) g/dL Hct 32.9 L (35.3-44.9) % Plt Count 250 (140-400) K/mcL Neutrophils # 3.1 (1.6-8.9) K/mcL BMP 07/05/18 03:12 Sodium 138 Potassium 4.4 Chloride 105 Carbon Dioxide 26 BUN 21 H Creatinine 0.83 Glucose 95 Calcium 8.4 L Consult Discharge Plan - Plan Referrals: Simi Velazquez [Primary Care Provider] -
[2018-07-06] MEDS: methylPREDNISolone 125 MG/2 ML VIAL IVP SCH ×2 (00:39→08:18)
[2018-07-06] MEDS: Loratadine 10 MG TABLET PO SCH (08:19)
[2018-07-06] MEDS: Famotidine 20 MG TABLET PO SCH (08:19)
[2018-07-06] MEDS: Cyanocobalamin (B-12) 1,000 MCG TABLET PO SCH (08:19)
[2018-07-06 08:25] VITALS: BP 106/65
[2018-07-06] MEDS: Budesonide/Formoterol 160/4.5 1 PUFF INH IH SCH (10:39)
[2018-07-06] MEDS: clonazePAM 0.5 MG TABLET PO PRN (11:07)
--- NOTE | 2018-07-06 11:11 | Discharge Summary ---
- NOTES TO OUTPATIENT PROVIDER Notes to Outpatient Provider: PCP for pain clinic refferral for chornic back pain Orders not resulted at time of discharge: Pending orders 07/03/18 13:15 Culture,Blood [BC] Routine Culture,Body Fluid [RM] Stat Date of Encounter: 07/06/18 Time of Encounter: 11:09 - Discharge Diagnosis (1) Pseudogout of hip Priority: Primary Status: Acute Qualifiers: Laterality: right Qualified Code(s): M11.251 - Other chondrocalcinosis, right hip Hospital course: Ms. Pham is a 47 year old female past medical history of COPD, leaky heart rales, chronic back pain, arthritis was sent from orthopedics for evaluation of possible septic arthritis/synovitis. Patient's complain of long-standing right hip pain for about 5 years. Patient recently had steroid injection for pain which did not resolve her pain. Patient had an MRI done on 06/30/18 which showed possible synovitis and erosive changes in the right femoral head, was sepsis to focus within femoral neck, prominent decubitus ulcers in the medial right buttock. Patient was transferred for direct admit with possible concern of bony abscess or bony edema at this changes putting patient had increased use of fracture. Patient denies any fevers, nausea, vomiting, diarrhea, chest pain, shortness of breath, bowel or bladder complaints Pt was kept in the hosptial and pt went to IR and did a hip aspriation which did show pseudogout, pt was given toradol and improved some what, then pt was given steorid, pt felt much improvement, pt will go home with steroid tapering. Of note, pt is asking for narcotics today, I told her that pseudogout is not warranting narcotics, pt is up set because she is not getting pain meds. - Time Spent with Patient Total time spent providing and/or coordinating discharge services: - Discharge Medications Prescriptions: predniSONE [PredniSONE] 10 mg PO DAILY 7 Days #50 tablet Home Medications: Promethazine [Phenergan] 25 mg PO Q8H PRN 08/06/16 [History] Acetylcysteine [R-Pudkxl-y-Cysteine] 600 mg PO TID 03/28/17 [History] Budesonide/Formoterol 160/4.5 [Symbicort 160/4.5] 2 puff IH BID 03/28/17 [History] Cetirizine HCl [Zyrtec] 10 mg PO DAILY 03/28/17 [History] Cholecalciferol (Vitamin D3) [Vitamin D3] 10,000 unit PO FR 03/28/17 [History] Furosemide [Lasix] 20 mg PO DAILY PRN 03/28/17 [History] Ipratropium/Albuterol Neb [Duoneb] 3 ml IH QID PRN 03/28/17 [History] Calcium Carbonate [Calcium] 600 mg PO DAILY 03/24/18 [History] Cyanocobalamin (Vitamin B-12) [B-12] 1,000 mcg PO DAILY 03/24/18 [History] Desvenlafaxine [Desvenlafaxine ER] 100 mg PO DAILY 03/24/18 [History] Levothyroxine Sodium 88 mcg PO DAILY 03/24/18 [History] Ranitidine HCl [Acid Academic Coach] 150 mg PO BID 03/24/18 [History] Albuterol Sulfate [Ventolin Hfa] 2 puff IH Q4H PRN 05/17/18 [History] clonazePAM [Clonazepam] 1 mg PO TID 05/17/18 [History] Baclofen [Lioresal] 10 mg PO TID 07/05/18 [History] Ferrous Sulfate 325 mg PO DAILY 07/05/18 [History] Naproxen Sodium [Aleve] 220 mg PO DAILY PRN 07/05/18 [History] Quetiapine Fumarate [Seroquel] 200 mg PO HS 07/05/18 [History] predniSONE [PredniSONE] 10 mg PO DAILY 7 Days #50 tablet 07/06/18 [Rx] Allergies/Adverse Reactions: Allergy/AdvReac Type Severity Reaction Status Date / Time Amoxicillin Allergy Severe Swelling Verified 07/05/18 11:28 of Lip/Tongue/Throat acetaminophen [From Vicodin] Allergy See Verified 07/05/18 11:28 Comments hydrocodone [From Vicodin] Allergy Vomiting Verified 07/05/18 11:28 Date of admission: 07/03/18 17:47 Primary care physician: Simi Velazquez Consults: 07/03/18 12:41 Consult to Interventional Radiology [CONS] Stat Consulting Provider: Radiology [facility] Reason for Consult: Rt hip aspiration Call Completed: Yes 07/03/18 12:53 Consult to Orthopedic Surgery [CONS] Routine Consulting Provider: [facility] Reason for Consult: suspicion of septic joint Call Completed: Yes 07/03/18 14:59 Consult to Surgery [CONS] Routine Consulting Provider: [facility] Reason for Consult: gluteal fluid collection Call Completed: Yes 07/03/18 15:22 Consult to Physical Therapy [CONS] Routine Comment: Evaluate, develop and implement POC Reason for Consult: improve mobility Does patient have active BEDREST order?: No Is patient medically & hemodynamically stable?: Yes 07/03/18 16:39 Consult to Surgery [CONS] Routine Consulting Provider: Og Miranda [facility] Reason for Consult: surgical consult Call Completed: No - Constitutional Vitals: Temp Pulse Resp BP Pulse Ox 98.1 F 71 18 106/65 98 07/06/18 08:24 07/06/18 08:24 07/06/18 08:24 07/06/18 08:24 07/06/18 08:24 Exam: Gen.: Alert and at 3, no acute distress Heart: Regular rate and rhythm, no murmurs, rubs, gallops Lungs: Good breath sounds bilaterally, occasional end expiratory wheezes noted Extremities: No deformity noted, no lower extremity edema Skin no lesions or drainage noted. - Patient Status Disposition: Home, Self-Care - Discharge Instructions Follow Up With: Simi Velazquez [Primary Care Provider] -
[2018-07-06] MEDS: Ketorolac 30 MG/ML VIAL IVP PRN (11:21)
== END 2018-07-06 13:12 | disposition home or self-care (01) | DRG 351 ==
LOC: 2SOUTHHOLD → SUATTDRO 17:47 → 2SOUTHHOLD 17:56 → 3ANU 07-04 14:01
PROVIDERS: ADMIT Internal Medicine; ATTEND Internal Medicine

== ENCOUNTER 2018-12-12 20:14 | Observation (INO) ==
--- NOTE | 2018-12-13 00:02 | Internal Med History&Physical ---
<Reena Morales M - Last Filed: 12/13/18 01:50> Date of Encounter: 12/13/18 Time of Encounter: 23:51 Internal Medicine - H&P: HPI Admitted From: Emergency Dept ([place]) History of present illness: Ms. Pham is a 48 year old female with history of BRAYAN now on HD, tracheostomy dependence, COPD, Hypothyroidism, PEG dependence who presented to [place] [facility] department from nursing facility secondary to hemoptysis. The patient states she has been having this issue for the last 2 weeks but over the last 3 days she has been coughing up large clots. She has never had this issue before. She denies any dizziness or fatigue above baseline. She states she has had chills at home but does not have a measurable temperature that she has taken. She otherwise complains of nausea but no vomiting, abdominal pain, chest pain, dysuria, hematuria. She denies being on any blood thinners. She is unsure of why she has a trach but believes it occurred during a hospitalization at [place] in July of this year. She does not follow with a beam builder in this area and notes that she has only been on hemodialysis MWF for the last two weeks. She has a PEG tube and does not eat anything by mouth. She has been bedbound since being in the nursing facility but denies any history of DVT or PE. She notes that she is full code. At [place] ED she was placed on ventilator for tachypnea. Labs shows anemia down to 7.6, no significant leukocytosis, platelets stable at 171, she has hyponatremia down to 131, hypokalemia of 3.3, BRAYAN with creatinine of 2.08 and BUN 44. Lactate 1.1. Past Med Surg Social Fam HX - Past Medical History Attestation: Yes The following information was validated with the patient. Source: patient Medical history: arthritis, COPD (Vent dependent), GERD, renal disease, thyroid disease, syncope, other Additional medical history: unknown Psychiatric history: depression - Past Surgical History Surgical History: cholecystectomy, orthopedic, other (Bilateral shoulder surgery), other (Gastric bypass), tracheostomy Additional surgical history: Gastric Bypass. Bilateral shoulder surgery. tubal ligation. TRACHEOSTOMY. PEG tube - Social History Smoking Status: Former smoker Smokeless Tobacco Status: No Alcohol use: none Drug use: unknown - Family History Mother Family Member Ethnicity: Non- Living Status: Still Living Hx Family Cardiac Disorders: Yes (Tachycardia) Hx Family Respiratory Disorders: Yes (COPD) Hx Family Cancer: No Hx Family GI Disorders: No Hx Family Endocrine Disorder: No Hx Family Neuromuscular Disorders: No Hx Family Neurologic Disorders: No Hx Family HEENT Disorders: No Hx Family Autoimmune Disorders: No Internal Medicine - H&P: Meds Levothyroxine Sodium 100 mcg PO DAILY 03/24/18 [History] Ranitidine HCl [Acid Manager Of Transportation] 150 mg PO BID 03/24/18 [History] clonazePAM [Clonazepam] 1 mg PO TID 05/17/18 [History] Ferrous Sulfate 325 mg PO DAILY 07/05/18 [History] Quetiapine Fumarate [Seroquel] 200 mg PO HS 07/05/18 [History] Divalproex Sodium [Depakote Sprinkle] 250 mg PO TID 12/12/18 [History] Fluticasone/Vilanterol [Breo Ellipta 100-25 Mcg INH] 2 each IH BID 12/12/18 [History] Fluticasone/Vilanterol [Breo Ellipta 100-25 Mcg INH] 2 each IH DAILY 12/12/18 [History] Ipratropium/Albuterol Neb [Duoneb] 3 ml IH Q6HR 12/12/18 [History] Melatonin 5 mg PO HS 12/12/18 [History] Metoprolol [Lopressor] 25 mg PO BID 12/12/18 [History] Oxycodone HCl 5 mg PO Q6H PRN 12/12/18 [History] Quetiapine Fumarate [SEROquel] 100 mg PO BID 12/12/18 [History] Sennosides [Senna] 8.6 mg PO BID 12/12/18 [History] Venlafaxine [Effexor] 75 mg PO BID 12/12/18 [History] Allergy/AdvReac Type Severity Reaction Status Date / Time Amoxicillin Allergy Severe Swelling Verified 07/05/18 11:28 of Lip/Tongue/Throat acetaminophen [From Vicodin] Allergy See Verified 07/05/18 11:28 Comments hydrocodone [From Vicodin] Allergy Vomiting Verified 07/05/18 11:28 All Systems PM: A 10-system review of systems was performed and is negative for pertinent findings except as documented above in the HPI. - Constitutional Constitutional: chills, no fever(s) - Cardiovascular Cardiovascular ROS IM: dyspnea, no chest pain - Respiratory Respiratory: cough, dyspnea, hemoptysis, wheezing - Gastrointestinal Gastrointestinal: nausea, no abdominal pain, no constipation, no vomiting - Genitourinary Genitourinary: no dysuria, no flank pain, no hematuria - Musculoskeletal Musculoskeletal ROS IM: no back pain, no myalgias - Integumentary Integumentary IM: no erythema, no rash - Neurological Neurological ROS: no dizziness, no focal weakness - Psychiatric Psychiatric: no anxiety, no confusion - Constitutional Vitals: Temp Pulse Resp BP Pulse Ox 98.2 F 83 19 120/76 99 12/12/18 23:00 12/12/18 23:00 12/12/18 23:00 12/12/18 23:00 12/12/18 23:00 Exam: General: Conversant. No apparent distress. Follow commands. Appears older than stated age. Communication is limited given patients inability to audibly speak Neck: No JVD. Trachea midline. Neck supple. Eyes: PERRL. No scleral icterus. HENT: Normocephalic and atraumatic. Moist mucus membranes. Anterior chest dialysis catheter in place without evidence of erythema or warmth. There is a tracheostomy present with mild blood from suction. Cardiovascular: Regular rate and rhythm. Normal S1 and S2. No murmurs appreciated. Normal capillary refill. Extremities well perfused with 2+ distal pulses bilaterally. No edema. Pulmonary: Coarse breath sounds bilaterally. Not in respiratory distress. Speaks in full sentences but makes minimal auditory voice, predominantly mouthing words. Abdomen: Soft, nondistended, and tontender. No bruits or masses. No guarding. PEG tube in place, no erythema or warmth surrounding. Neuro: Alert and oriented x3. No slurred speech. No focal deficits noted. Skin: No rashes noted on visualized skin. Musculoskeletal: No bony abnormalities visualized. Moves all extremities. Psych: Normal mood. Pleasant. Makes appropriate eye contact. - Assessment and Plan (1) Hemoptysis Status: Acute Assessment and plan: * Unsure at this point of origin * Hemoglobin 7.6, down from 9.6 two weeks prior, does have chronic anemia as well but at this time has no large volume hemoptysis, tachycardia, hypotension, or signs of instability * Given her history there is concern for pulmonary embolism, underlying pulmonary infection vs malignancy, vs trach complication * Chest XR shows increasing volume loss with possible superimposed infiltrate of left lung with concern for pulmonary edema * Breath sounds course on examination * Would prefer to obtain CTA chest but given she appears to have BRAYAN now requiring HD do not wish to give large contrast bolus and make her anuric as we are unsure of the reasoning for her hemodialysis * Plan for transfer to [place] given she is unsure of her reason for tracheostomy, PEG dependence, and hemodialysis. She is in need of further imaging and evaluation and given her numerous specialists and their ability to access previous records waiting for outside records would result in prolonged delay of care which at this point the patient cannot withstand given her high potential for decline. Patient agrees with plan for transfer back to [place] * If delayed transport will repeat H&H and Type and Screen. (2) Tracheostomy complication Status: Acute Assessment and plan: * Patient having hemoptysis from tracheostomy * There is evidence of bright red blood via suction * Patient appears stable, no evidence of tachycardia, hypotension, given timeframe of tracheostomy at lower risk for tracheoarterial fistula * Patient is unsure of the reason for trach placement and has not followed up with pulmonology since this was placed Qualifiers: Tracheostomy complication: unspecified Qualified Code(s): J95.00 - Unspecified tracheostomy complication (3) Acute respiratory failure with hypoxia Status: Acute Assessment and plan: * Patient now requiring addition of ventilator for adequate oxygenation * She is comfortable and not hypoxic * No evidence of infection at this time, lactate not elevated, afebrile therefor e will not start on antibiotics at this time - Time Spent With Patient Total time spent is greater than 50% in coordination of care (as documented) at patient's floor/unit and/or counseling patient: <Key Mata - Last Filed: 12/13/18 07:02> Date of Encounter: 12/12/18 Internal Medicine - H&P: HPI History of present illness: Ms. Pham is a 48 year old female All Systems PM: A 10-system review of systems was performed and is negative for pertinent findings except as documented above in the HPI. - Constitutional Vitals: Temp Pulse Resp BP Pulse Ox 98.4 F 79 14 115/65 99 12/13/18 04:42 12/13/18 05:00 12/13/18 05:00 12/13/18 05:00 12/13/18 05:00 Internal Med - H&P Results - Labs CBC & Chem 7: 12/13/18 02:33 Labs: Short CBC 12/13/18 Range/Units 02:33 WBC 6.1 (4.3-11.1) K/mcL Hgb 7.5 L (11.5-15.4) g/dL Hct 24.4 L (35.3-44.9) % Plt Count 170 (140-400) K/mcL Neutrophils # 3.6 (1.6-8.9) K/mcL - Impressions ITS Impressions Chest CT 12/13/18 02:58 IMPRESSION: 1. Large secretions completely obliterate the left main bronchus. 2. Diffuse infiltrate and areas of atelectasis in the entire left lung. 3. Infiltrate in the right upper lobe. Small focal infiltrates in the right lower lobe. 4. Trace bilateral pleural effusions. D/ / Isela Gerber MD / Isela Gerber MD Interpreting Provider: Isela Gerber MD - Time Spent With Patient Total time spent is greater than 50% in coordination of care (as documented) at patient's floor/unit and/or counseling patient: - Attending Attestation I performed a history and physical examination of the patient and discussed his management with the resident. I reviewed the residents note and agree with the documented findings and plan of care. The encounter was on 12/12
[2018-12-13] MEDS ORDERED: Naloxone 0.4 MG/ML INJ IVP PRN (00:29)
[2018-12-13] MEDS ORDERED: Chlorhexidine Rinse 15 ML MOUTHWASH MM SCH (00:30)
--- NOTE | 2018-12-13 02:22 | Discharge Summary ---
<Reena Morales - Last Filed: 12/13/18 02:33> Orders not resulted at time of discharge: Pending orders 12/13/18 02:16 CBC [Complete Blood Count] [HEME] Stat Type and Screen [BBK] Stat Date of Encounter: 12/13/18 Time of Encounter: 02:21 - Discharge Diagnosis (1) Hemoptysis Priority: Primary Status: Acute (2) Tracheostomy complication Priority: Secondary Status: Acute Qualifiers: Tracheostomy complication: unspecified Qualified Code(s): J95.00 - Unspecified tracheostomy complication (3) Acute respiratory failure with hypoxia Priority: Secondary Status: Acute Hospital course: Ms. Pham is a 48 year old female with history of BRAYAN now on HD, tracheostomy dependence, COPD, Hypothyroidism, PEG dependence who presented to [facility] from nursing facility secondary to hemoptysis. The patient states she has been having this issue for the last 2 weeks but over the last 3 days she has been coughing up large clots. She is unsure of why she has a trach but believes it occurred during a hospitalization at [facility] in July of this year. At [facility] she was placed on ventilator for tachypnea. Labs shows anemia down to 7.6, no significant leukocytosis, platelets stable at 171, she has hyponatremia down to 131, hypokalemia of 3.3, BRAYAN with creatinine of 2.08 and BUN 44. Lactate 1.1. The patient has no knowledge of why she is trach dependent, on hemodialysis, PEG dependent, and now immobilized. She believes this all occurred in July 2018 following her admission to [facility] but she has no knowledge of her diagnoses and has not followed with a turbogenerator operator nor neprhologist since that admssion. Outpatient records correlate with this. At this time we are unable to obtain the patient's medical records for an extended period of time and given she is now on hemodialysis and this appears to be secondary to an acute kidney injury and she is not end-stage renal disease and an uric we are hesitant to perform CT angiogram to determine causative reasoning for patient's hemoptysis. Ideally we would have the patient's medical records to fully evaluate her reason for tracheostomy as well as need for HD and PEG placement but these are not available and will not be available for some time due to computer issues. It is in the patient's best interest to be transferred to the facility for which she had these procedures and can therefore determine the best course of action for the patient's current symptoms. She is stable on mechanical ventilation, does continue to have scant bleeding from tracheostomy but her blood pressure is stable, she has no tachycardia and she continues to be alert, oriented and talkative. We will avoid frequent suctioning. We will redraw H&H, and type and screen should the patient become more anemic requiring transfusion prior to transportation. The patient was accepted to Dr. Kyle Kumar. The patient is agreeable to plan for transfer. All questions answered. - Time Spent with Patient Total time spent providing and/or coordinating discharge services: - Discharge Medications Prescriptions: No Action Ranitidine HCl [Acid Medical Care Evaluation Specialist] 150 mg PO BID Levothyroxine Sodium 100 mcg PO DAILY clonazePAM [Clonazepam] 1 mg PO TID Ferrous Sulfate 325 mg PO DAILY Quetiapine Fumarate [Seroquel] 200 mg PO HS Venlafaxine [Effexor] 75 mg PO BID Sennosides [Senna] 8.6 mg PO BID Quetiapine Fumarate [SEROquel] 100 mg PO BID Oxycodone HCl 5 mg PO Q6H PRN PRN Reason: Pain Metoprolol [Lopressor] 25 mg PO BID Melatonin 5 mg PO HS Ipratropium/Albuterol Neb [Duoneb] 3 ml IH Q6HR Fluticasone/Vilanterol [Breo Ellipta 100-25 Mcg INH] 2 each IH BID Divalproex Sodium [Depakote Sprinkle] 250 mg PO TID Fluticasone/Vilanterol [Breo Ellipta 100-25 Mcg INH] 2 each IH DAILY Home Medications: Levothyroxine Sodium 100 mcg PO DAILY 03/24/18 [History] Ranitidine HCl [Acid Medical Care Evaluation Specialist] 150 mg PO BID 03/24/18 [History] clonazePAM [Clonazepam] 1 mg PO TID 05/17/18 [History] Ferrous Sulfate 325 mg PO DAILY 07/05/18 [History] Quetiapine Fumarate [Seroquel] 200 mg PO HS 07/05/18 [History] Divalproex Sodium [Depakote Sprinkle] 250 mg PO TID 12/12/18 [History] Fluticasone/Vilanterol [Breo Ellipta 100-25 Mcg INH] 2 each IH BID 12/12/18 [History] Fluticasone/Vilanterol [Breo Ellipta 100-25 Mcg INH] 2 each IH DAILY 12/12/18 [History] Ipratropium/Albuterol Neb [Duoneb] 3 ml IH Q6HR 12/12/18 [History] Melatonin 5 mg PO HS 12/12/18 [History] Metoprolol [Lopressor] 25 mg PO BID 12/12/18 [History] Oxycodone HCl 5 mg PO Q6H PRN 12/12/18 [History] Quetiapine Fumarate [SEROquel] 100 mg PO BID 12/12/18 [History] Sennosides [Senna] 8.6 mg PO BID 12/12/18 [History] Venlafaxine [Effexor] 75 mg PO BID 12/12/18 [History] Allergies/Adverse Reactions: Allergy/AdvReac Type Severity Reaction Status Date / Time Amoxicillin Allergy Severe Swelling Verified 07/05/18 11:28 of Lip/Tongue/Throat acetaminophen [From Vicodin] Allergy See Verified 07/05/18 11:28 Comments hydrocodone [From Vicodin] Allergy Vomiting Verified 07/05/18 11:28 Date of admission: 12/12/18 23:22 Primary care physician: Simi Velazquez Discharging clinician: Reena Morales Anticipated date of discharge: 12/13/18 - Constitutional Vitals: Temp Pulse Resp BP Pulse Ox 98.2 F 77 16 110/64 99 12/13/18 00:14 12/13/18 02:00 12/13/18 02:00 12/13/18 02:00 12/13/18 02:00 Exam: General: Conversant. No apparent distress. Follow commands. Appears older than stated age. Communication is limited given patients inability to audibly speak Neck: No JVD. Trachea midline. Neck supple. Eyes: PERRL. No scleral icterus. HENT: Normocephalic and atraumatic. Moist mucus membranes. Anterior chest dialysis catheter in place without evidence of erythema or warmth. There is a tracheostomy present with mild blood from suction. Cardiovascular: Regular rate and rhythm. Normal S1 and S2. No murmurs appreciated. Normal capillary refill. Extremities well perfused with 2+ distal pulses bilaterally. No edema. Pulmonary: Coarse breath sounds bilaterally. Not in respiratory distress. Speaks in full sentences but makes minimal auditory voice, predominantly mouthing words. Abdomen: Soft, nondistended, and tontender. No bruits or masses. No guarding. PEG tube in place, no erythema or warmth surrounding. Neuro: Alert and oriented x3. No slurred speech. No focal deficits noted. Skin: No rashes noted on visualized skin. Musculoskeletal: No bony abnormalities visualized. Moves all extremities. Psych: Normal mood. Pleasant. Makes appropriate eye contact. - Patient Status Disposition: Transfer Other Condition: Critical - Discharge Instructions Follow Up With: Simi Velazquez [Primary Care Provider] - <Key Mata - Last Filed: 12/13/18 07:00> Date of Encounter: 12/13/18 Hospital course: Ms. Pham is a 48 year old female - Time Spent with Patient Total time spent providing and/or coordinating discharge services: Date of admission: 12/12/18 23:22 Primary care physician: Simi Velazquez - Constitutional Vitals: Temp Pulse Resp BP Pulse Ox 98.4 F 79 14 115/65 99 12/13/18 04:42 12/13/18 05:00 12/13/18 05:00 12/13/18 05:00 12/13/18 05:00 - Attending Attestation I performed a history and physical examination of the patient and discussed his management with the resident. I reviewed the residents note and agree with the documented findings and plan of care.
[2018-12-13 03:14] LABS: Basophils # 0.1 K/mcL (0.0-0.2); Basophils % 1.5 %; Eosinophils # 0.3 K/mcL (0.0-0.6); Eosinophils % 4.6 %; Hematocrit 24.4 % (35.3-44.9); Hemoglobin 7.5 g/dL (11.5-15.4); Immature Granulocytes % 0.5 % (0-4); Lymphocytes # 1.5 K/mcL (0.6-4.6); Lymphocytes % 24.5 %; Mean Corpuscular HGB Conc 30.7 g/dL (31.6-35.5); Mean Corpuscular Volume 107.5 fL (83.0-100.0); Mean Platelet Volume 9.7 fL (9.4-12.4); Monocytes # 0.6 K/mcL (0.0-1.3); Monocytes % 10.3 %; Neutrophils # 3.6 K/mcL (1.6-8.9); Platelet Count 170 K/mcL (140-400); Red Blood Count 2.27 M/mcL (3.82-4.97); Red Cell Distribution Width 23.5 % (11.5-14.5); Segmented Neutrophils % 58.6 %; White Blood Count 6.1 K/mcL (4.3-11.1)
[2018-12-13 03:57] LABS: Anisocytosis 3+ (Not Present); Hypochromasia Present (Not Present); Platelet Estimate Normal (Normal); Polychromasia 1+ (Not Present)
[2018-12-13] MEDS ORDERED: Ipratropium/Albuterol Neb 3 ML IH SCH (05:00)
[2018-12-13 05:10] VITALS: BP 115/65
[2018-12-13 23:57] LABS: Enterococcus by PCR Not Detected (Not Detect); Staphylococcus by PCR DETECTED (Not Detect); blaKPC Carbapenem-Resist Gene Not Detected (Not Detect); mecA Methicillin-Resist Gene DETECTED (Not Detect); vanA/B Vancomycin-Resist Genes Not Detected (Not Detect)
[2018-12-13 23:58] LABS: Acinetobacter baumannii by PCR Not Detected (Not Detect); Candida albicans by PCR Not Detected (Not Detect); Candida glabrata by PCR Not Detected (Not Detect); Candida krusei by PCR Not Detected (Not Detect); Candida parapsilosis by PCR Not Detected (Not Detect); Candida tropicalis by PCR Not Detected (Not Detect); Enterobacter cloacae Cmplx PCR Not Detected (Not Detect); Enterobacteriaceae by PCR Not Detected (Not Detect); Escherichia coli by PCR Not Detected (Not Detect); Klebsiella oxytoca by PCR Not Detected (Not Detect); Klebsiella pneumoniae by PCR Not Detected (Not Detect); Proteus by PCR Not Detected (Not Detect); Pseudomonas aeruginosa by PCR Not Detected (Not Detect); Serratia marcescens by PCR Not Detected (Not Detect); Staphylococcus aureus by PCR Not Detected (Not Detect); Streptococcus agalactiae(B)PCR Not Detected (Not Detect); Streptococcus by PCR Not Detected (Not Detect); Streptococcus pneumoniae PCR Not Detected (Not Detect); Streptococcus pyogenes (A) PCR Not Detected (Not Detect)
== END 2018-12-13 05:27 | disposition other institution (70) ==
LOC: ICNU
PROVIDERS: ADMIT Internal Medicine; ATTEND Internal Medicine